=== PATIENT | female | born 1960 | race African-American/Black ===

== ENCOUNTER 2016-12-06 02:00 | Inpatient (IN) ==
[2016-12-06 04:06] LABS: PT Patient Result 10.4 SECS; Partial Thromboplastin Time 23.1 SECS (0-40)
[2016-12-06 04:14] LABS: Barbiturates Screen,Urine Negative (Negative); Benzodiazepines Screen,Urine Negative (Negative); Cannabinoid Screen,Urine Negative (Negative); Opiate Screen,Urine Negative (Negative); Phencyclidine Screen,Urine Negative (Negative)
--- NOTE | 2016-12-06 04:20 | Emergency Department Note ---
Basilio Christy Mantricia, am scribing for, and in the presence of, Rl Schilling MD 03:58. Shakir Christy Charles R, MD, personally performed the services described in this documentation, ascribed by Edison Richmond in my presence, and it is both accurate and complete 420 . Arrival - Arrival Chief Complaint: Neuro Stated Complaint: poss. stroke ED Nursing Triage Note: C/O Pt reports that she woke up and was dizzy, but then symptoms started getting worse. Pt states that she has been stumbling and unable to use her left arm appropriately since 1330 yesterday afternoon. Pt denies seeking medical attention until now. Pt is having some trouble thinking and answering questions at time of triage. Pt reports that she has been off of her blood pressure medications "for some years" Mode of Arrival: Ambulatory Limitations: No Limitations Source: Patient Time Seen by Provider: 12/06/16 02:41 - History of Present Illness HPI Narrative: Pt is a 56 y/o black female arriving to ED for evaluation of possible CVA that happened yesterday. She reports that she woke up yesterday dizzy but she just waved the symptoms away until today when things worsened. She states that she has been stumbling and unable to use her left arm and noticed weakness in her left leg. Pt has a PMHx of HTN; however, she has been off her medications for a while. Pt answers questions slowly at time of exam. No other complaints were reported to ED. Onset (ago): day(s) Date of Last Menstrual Period: PM Allergies/Adverse Reactions: Allergies Allergy/AdvReac Type Severity Reaction Status Date / Time No Known Allergies Allergy Verified 12/06/16 02:07 Home Medications: Home Medications Medication Instructions Recorded Confirmed Type No Known Home Medications [No 12/06/16 12/06/16 History Known Home Medications] Review of System - Review of System 12 point system: reviewed and no additional remarkable complaints except as stated - Review of System Constitutional: Absent: chills, diaphoresis, fever Eyes: Absent: discharge, pain Respiratory: Absent: cough Skin: Absent: rash, lesions Neurological: Present: weakness (left sided), abnormal gait Medical,Surgical,& Family Hx - Medical History Cardio: History of: Hypertension (No taking meds) - Social History Smoking Status: Current some day smoker Frequency of Alcohol Use: None Type of Drug Use: None Exam Vital Signs: Vital Signs Temperature 98.5 F 12/06/16 02:07 Pulse Rate 91 H 12/06/16 02:40 Respiratory Rate 16 12/06/16 02:40 Blood Pressure 224/136 12/06/16 02:40 O2 Sat by Pulse Oximetry 99 12/06/16 02:07 - General General appearance: alert, in no apparent distress, other (slurred speech) - Head Head exam: Present: atraumatic, normocephalic, other (left facial droop) - Eye Eye exam: Present: normal appearance, PERRL, EOMI - ENT ENT exam: Present: normal exam, normal oropharynx, mucous membranes moist, TM's normal bilaterally, normal external ear exam - Neck Neck exam: Present: normal inspection, full ROM, trachea midline. Absent: tenderness - Chest Chest inspection: Present: normal inspection, symmetric chest wall rise. Absent : tenderness - Respiratory Respiratory exam: Present: normal lung sounds bilaterally - Cardiovascular Cardiovascular exam: Present: regular rate, normal rhythm, normal heart sounds - Extremities Exam Extremities exam: Present: normal inspection, full ROM. Absent: tenderness - Back Exam Back exam: Present: normal inspection, full ROM. Absent: tenderness - Neurological Exam Neurological exam: Present: oriented X3, CN II-XII intact. Absent: normal gait - Expanded Neurological Exam Motor strength - LUE: 3/5 Motor strength - LLE: 3/5 - Psychiatric Psychiatric exam: Present: normal affect, normal mood - Skin Skin exam: Present: warm, dry, intact, normal color Course Course Narrative: Reason for not using TPA is is greater than 8 hours since onset of symptoms approximately greater than 24 hours at this time. Patient is also has a blood pressure is too high to give TPA as well. - Consultations Consultation #1: Hospitalist will admit patient Time: 05:04 Results - Labs CBC & BMP: 12/06/16 02:58 Lab Results: I have reviewed the patients labs - Diagnostic Findings Procedure: CT: image reviewed by me, report reviewed by me (CT head negative) Critical Care Time Critical Care Time: Yes Total Critical Care Time: 60 Disposition Clinical Impression: Cerebrovascular accident, Malignant hypertension, Left-sided weakness, Medical non-compliance, UTI (urinary tract infection) Case discussed with: patient Disposition: Still a Patient Condition: Critical Time of Disposition: 05:17 NIH Stroke Score - Stroke Score Initial Assessment Level of Consciousness: Alert Level of Consciousness Questions: Answers Both Correctly Level of Consciousness Commands: Obeys Both Correctly Best Gaze: Normal Visual Smith: No Visual Loss Facial Palsy: Partial Motor - Right Arm: No Drift Motor - Left Arm: Drift Motor - Right Leg: No Drift Motor - Left Leg: Drift Limb Ataxia: Absent Sensory ([place]): Partial Loss Best Language: Mild to Moderate Aphasia Dysarthria: Mild to Moderate Extinction / Inattention (Neglect): No Neglect NIH Stroke Score: 7
[2016-12-06] MEDS ORDERED: niCARdipine 25 MG/10 ML VIAL IV ONE (04:29)
[2016-12-06 04:31] LABS: Alanine Aminotransferase 33 U/L (13-56); Albumin 4.1 G/DL (3.4-5.0); Alkaline Phosphatase 118 U/L (45-117); Aspartate Amino Transferase 20 U/L (0-37); Blood Urea Nitrogen 9 MG/DL (7-18); Calcium 9.9 MG/DL (8.5-10.1); Glucose 123 MG/DL (74-106); Osmolality,Calculated 282.1 MOS/KG (273-304); Potassium 3.5 MMOL/L (3.5-5.1); Sodium 142 MMOL/L (136-145); Total Protein 8.6 G/DL (6.4-8.3)
[2016-12-06] MEDS ORDERED: ASPIRIN EC 325 MG TABLET PO STA (04:31)
[2016-12-06 04:35] LABS: Troponin I Only 0.481 NG/ML (0.00-0.045)
[2016-12-06] MEDS: niCARdipine INJ 25 MG in SODIUM CHLORIDE 0.9% 240 ML IV SCH ×2 (04:35→09:40)
[2016-12-06 04:59] LABS: Amorphous Crystals,Urine Occasional /HPF (Few); Bacteria,Urine Occasional /HPF (Few); Hyaline Casts,Urine 2 /LPF (0-3); Mucus,Urine Occasional /LPF (Occasional); RBC,Urine 9 /HPF (0-4); Squamous Epithelial Cell,Urine Occasional /HPF (0-10); WBC,Urine 50 /HPF (0-6)
[2016-12-06 05:01] LABS: Bilirubin,Urine Negative (Negative); Glucose,Urine (UA) Negative (Negative); Ketones,Urine Negative (Negative); Nitrite,Urine Negative (Negative); Protein,Urine 100 MG/DL; Urine Color Yellow (Yellow); Urine Specific Gravity 1.005 (1.001-1.035)
[2016-12-06 05:02] LABS: Apearance,Urine Slightly Hazy (Clear); Blood, Urine Trace mg/dL (Negative); Urine Urobilinogen 0.2 EU/DL (0.2-1.0)
[2016-12-06] MEDS ORDERED: cefTRIAXone 1,000 MG in SODIUM CHLORIDE 0.9% 100 ML IV STA (05:03)
[2016-12-06 05:25] LABS: Basophils % 0.5 % (0.0-0.8); Eosinophils # 0.2 10*3/uL (0.0-0.87); Hematocrit 40.8 VOL% (35.7-47.0); Immature Granulocytes % 0.3 %; Immature Granulocytes Absolute 0.02 #; Lymphocytes # 1.1 10*3/uL (1.4-4.0); Mean Corpuscular HGB Conc 31.9 GM/DL (32-36); Mean Corpuscular Hemoglobin 26 PG (27-34); Mean Corpuscular Volume 81.4 FL (87-102); Mean Platelet Volume 11.7 FL (9.6-12.0); Monocytes # 0.2 10*3/uL (0.11-0.8); NRBC # 0.02 10*3/uL; Neutrophils # 4.2 10*3/uL (1.4-7.4); Neutrophils % 73.2 % (38.7-73.9); Platelet Count 115 T/CUMM (130-400); Red Blood Count 5.01 MC/CUMM (3.8-5.5); Red Cell Distribution Width 13.9 % (9.3-17.3); White Blood Count 5.8 T/CUMM (4-12)
[2016-12-06] MEDS ORDERED: ASPIRIN EC 325 MG TABLET PO ONE (05:28)
[2016-12-06] MEDS ORDERED: cefTRIAXone 1,000 MG VIAL ONE (05:28)
--- NOTE | 2016-12-06 05:41 | Hospitalist History & Physical ---
Assessment and Plan (1) Cerebrovascular accident Status: Acute Assessment and plan: This happened yesterday. This also the REM of doing TPA on her. This patient most likely has a dry stroke. Differential diagnosis includes syphilis includes vasculitis. Will therefore do RPR, ESR and JULIANE. Get neurology consultation. An MRI of the head CTA of the head and neck. Patient has been started on antiplatelets that will continue use Lovenox subcu for DVT prophylaxis Current Visit: Yes (2) UTI (urinary tract infection) Status: Acute Assessment and plan: Continue ceftriaxone 1 g every 24 hours. Follow cultures of the urine. Current Visit: Yes (3) Malignant hypertension Status: Acute Assessment and plan: Patient is on Cardene drip patient will be titrated up. Intention is to allow permissive hypertension to systolic blood pressure below 160 and 180 for the next 48 hours. Patient is being admitted to the intensive care unit. Current Visit: Yes History of Present Illness Chief complaint: Left-sided weakness/malignant hypertension History of present illness: Ms. Sprague is a 56 year old female presented to ED for evaluation of possible CVA that happened yesterday. She reports that she woke up yesterday dizzy but she just waved the symptoms away until today when things worsened. She states that she has been stumbling and unable to use her left arm and noticed weakness in her left leg. Pt has a PMHx of HTN; however, she has been off her medications for a while. Pt answers questions slowly but appears anxious. No prior history of hypothyroidism. Tox screen is negative for an excitatory medication Home Medications Medication Instructions Recorded Confirmed Type No Known Home Medications [No 12/06/16 12/06/16 History Known Home Medications] Allergies Allergy/AdvReac Type Severity Reaction Status Date / Time No Known Allergies Allergy Verified 12/06/16 02:07 Medical,Surgical,& Family Hx - Medical History Cardio: History of: Hypertension (No taking meds) - Social History Smoking Status: Current some day smoker Frequency of Alcohol Use: None Type of Drug Use: None Review of systems: 12 point system assessment was done. Significant for chief complaint history of presenting illness and his past medical history. Patient does have weakness on the left side of her body including both the left arm on the left leg. She has been dragging her leg since yesterday. Exam - Constitutional Vitals: Period Temp Pulse Resp BP Sys/Garza Pulse Ox Last 24 Hr 98.5 F 91-118 16-20 224-242/118-136 99 General appearance: over weight - Head Head exam: Present: normocephalic, atraumatic - Eye Eye exam: Present: EOMI Pupils: Present: CARMELITA - ENT ENT exam: Present: normal oropharynx, other (No dysarthria but slow in response) - Neck Neck exam: Present: other (Neck is supple no JVD midline trachea no adenopathy) - Respiratory Respiratory exam: Present: clear to auscultation bilaterally - Cardiovascular Cardiovascular exam: Present: tachycardia - GI/Abdominal GI/Abdominal exam: Present: normal bowel sounds, soft - Extremities Exam Extremities exam: Present: other (Poor cardiovascular physician assistant on the left side and incoordination of the left lower extremity no loss of muscle bulk no joint swelling) - Neurological Exam Neurological exam: Present: alert, oriented X3, CN II-XII intact, other (Left- sided weakness including both and the leg with incoordination of the leg) - Psychiatric Psychiatric exam: Present: anxious - Skin Skin exam: Present: normal color, warm, dry Results - Labs CBC & BMP: 12/06/16 02:58 Lab Results: I have reviewed the past 24 hour labs Quality Measures - Stroke Onset of Symptoms Date: 12/05/16 Onset of Symptoms Time: 13:00
--- NOTE | 2016-12-06 06:03 | EKG Report ---
Stationary ECG Study [facility] ER Test Date: 12/06/2016 4:27:44 AM Pat Name: UMA AYERS Department: Room: Gender: F Survey Manager: : 1960 Requested by: Rl Solitario Order Number: [id number] Reading MD: BERTHA PLUMMER Intervals [place] Rate: 95 P: 50 KS: 185 QRS: 0 QRSD: 86 T: 170 QT: 337 QTc: 390 Interpretive Statements SINUS RHYTHM LEFT VENTRICULAR HYPERTROPHY AND ST-T CHANGE Electronically Signed On 12-06-16 10:47:23 CDT by BERTHA PLUMMER [email or web address]
[2016-12-06 06:11] LABS: Hypochromasia 1+; Lymphocytes 18 % (20-55); Segmented Neutrophils 79 % (50-85); Total Cells Counted 100
[2016-12-06 06:17] LABS: Risk Ratio 3.64
[2016-12-06 06:26] LABS: Free T4 (Free Thyroxine) 1.14 NG/DL (0.76-1.46); Thyroid Stimulating Hormone 2.96 uIU/ml (0.358-3.74)
--- NOTE | 2016-12-06 06:51 | CT Report ---
Referring physician: Rl Schilling Exam: CT brain without contrast Date: December 06, 2016 Comparison: None Reason: Hemiparesis, dizziness The patient was an Emergency Department patient on December 06, 2016. Preliminary report was provided by [facility]. Technique: Axial images of the head were obtained without the use of contrast. Total DLP was 997.9 mGy*cm. Findings: There are areas of low-attenuation within the cerebral white matter bilaterally. This is nonspecific but likely represents chronic microvascular ischemic change. A 1 cm area of low attenuation is also seen within the anterior aspect of the right basal ganglia on image 11. This could represent an indeterminate age lacunar infarction. No hydrocephalus or midline shift is present. There is no evidence of recent intracranial hemorrhage or abnormal mass effect. There may be a punctate calcification within the left lateral ventricle near the foramen of Hernandez. No acute osseous process is seen. There is a small hypodensity within the calvarium on the right near the vertex on image 26. This is favored to represent a benign process such as a venous perkins. Follow-up could be performed for a high-risk patient. There is mild mucosal thickening within the ethmoid air cells. The mastoid air cells appear clear. Impression: 1. There is a 1.0 cm area of low attenuation within the anterior right basal ganglia. This could represent an indeterminate age lacunar infarction. Further evaluation could be performed with MRI. 2. Probable chronic microvascular ischemic change. Findings were discussed with Dr. Lovelace on December 06, 2016 at 6:[address] exam was performed using one or more of the following dose reduction techniques: Automated exposure control and adjustment of the mA and/or kV according to patient size. PROCEDURE INTERPRETED AT [facility] DEPARTMENT OF RADIOLOGY Final Report Signed by: Dr. Walter Sparks
[2016-12-06] MEDS ORDERED: METOPROLOL TARTRATE 5 MG/5 ML VIAL IV ONE (06:54)
[2016-12-06] MEDS: ENOXAPARIN 40 MG/0.4 ML SYRINGE SUBCUT SCH (07:56)
--- NOTE | 2016-12-06 08:23 | XRay Report ---
Portable chest Date: 12/06/2016 Clinical history: Cardiomegaly Comparison: None Technique: Portable AP sitting chest Findings: The heart is borderline in size with uncoiling of the aorta. Calcified granulomata/nodes with minimal atelectasis at the lung bases. Unremarkable mediastinum with degenerative changes. Impression: Evidence of old healed granulomatous disease with minimal atelectasis at the lung bases. PROCEDURE INTERPRETED AT [facility] DEPARTMENT OF RADIOLOGY Final Report Signed by: Dr. Lalita Gonsalez
[2016-12-06] MEDS ORDERED: LORazepam 1 MG TABLET PO ONE (09:00)
[2016-12-06] MEDS ORDERED: niCARdipine INJ 50 MG in SODIUM CHLORIDE 0.9% 230 ML IV SCH (10:30)
--- NOTE | 2016-12-06 12:20 | Magnetic Resonance Report ---
Exam: MR head/brain w and wo con Date: 12/06/2016 8:11 AM Comparison: CT brain 12/06/2016 Indication: Left side weakness with possible CVA Technique:[Multiple acquisitions were obtained including sagittal T1, coronal T1 scans on injection of 20 cc of Dotarem, and axial ADC, diffusion, FLAIR, T2, GRE, and T1 scans before and after injection of contrast. Scans were obtained on 1.5 Annette magnet.] Findings: The right frontal horn is minimally larger in size than the left with no midline displacement. Empty sella with the cerebellar tonsils normal in their location. Restricted diffusion in the right basal ganglia location which measures 14 mm in AP diameter inferiorly and 15 mm more superiorly adjacent to the right lateral ventricle. Additional chronic right basal ganglia infarct. No evidence of hemorrhage, mass, extracerebral collection, or abnormal enhancement. Diffuse atrophy and multiple flair/T2 hyperintensities. Minimal mucosal thickening/fluid in the paranasal sinuses. No acute findings in the orbits, temporal bones, [place], or venous sinuses. Impression: Acute right basal ganglia infarction with additional more chronic right basal ganglia infarction. Diffuse cerebral atrophy and moderately severe microvascular disease. T2 hyperintensities can also be associated with demyelinating disease, vasculitis, viral illness, etc. Empty sella. Minimal sinusitis. PROCEDURE INTERPRETED AT [facility] DEPARTMENT OF RADIOLOGY Final Report Signed by: Dr. Lalita Gonsalez
--- NOTE | 2016-12-06 12:25 | Magnetic Resonance Report ---
Exam: MR angio neck wo/w con Date: 12/06/2016 10:03 AM Comparison: None Indication: Left side weakness, hypertension, CVA Technique:[Utilizing 2-D [id number]-lagcuo imaging MRA neck obtained. Scans were obtained before and after the injection of 20 cc of Dotarem. Degree of stenosis based on NASCET criteria. Scans were obtained on a 1.5 Annette magnet.] Findings: Tortuosity of the arteries. In the upper carotid bulb location the right ICA measures 5.1 mm in diameter. The left ICA measures 4.9 mm in diameter. The right vertebral artery is smaller in size than the left with Limited evaluation of the distal vertebral and basilar arteries. The basilar artery is small in size with possible stenoses. Impression: Tortuosity of the arteries. No hemodynamically significant carotid stenosis. The right vertebral artery is smaller in size than the left. Limited evaluation of the distal vertebral and basilar arteries. The basilar artery is noted to be somewhat small in size with possible stenoses. PROCEDURE INTERPRETED AT [facility] DEPARTMENT OF RADIOLOGY Final Report Signed by: Dr. Lalita Gonsalez
[2016-12-06] MEDS: METOPROLOL TARTRATE 25 MG TABLET PO SCH ×2 (14:00→20:40)
[2016-12-06] MEDS: LISINOPRIL 20 MG TABLET PO SCH (14:00)
[2016-12-06] MEDS: amLODIPine 10 MG TABLET PO SCH (14:00)
[2016-12-06] MEDS ORDERED: ZALEPLON 5 MG CAPSULE PO PRN (15:27)
--- NOTE | 2016-12-06 17:52 | ECHO Report ---
Erika Sprague Exam Date: 12/06/2016 12:50 Referring Physician: Technologist: noe Sparks ARDMS, RVT Age: 56 Ht (in): 63 Wt (lb): 168 Gender: F Exam Location: [facility] Echo Indications: Essential (primary) hypertension, Weakness, CVA, UTI BP: 213 / 98 HR: 131 Rhythm: Sinus tachycardia Technical Quality: Fair IMPRESSIONS 1. Left ventricle is normal size and systolic function with an ejection fraction 60%. There is mild concentric left ventricular hypertrophy. 2. Other cardiac chambers are normal size. 3. Valvular structures are grossly normal. 4. There is no gross evidence of intracardiac mass or thrombus as a source for emboli. MEASUREMENTS (Male / Female) Normal Values 2D ECHO LV Diastolic Diameter PLAX 3.8 cm 4.2 - 5.9 / 3.9 - 5.3 cm LV Systolic Diameter PLAX 2.1 cm LV Fractional Shortening PLAX 46.4 % IVS Diastolic Thickness 1.3 cm 0.6 - 1.0 / 0.6 - 0.9 cm LVPW Diastolic Thickness 1.0 cm 0.6 - 1.0 / 0.6 - 0.9 cm RV Internal Dim ED PLAX 2.4 cm Aortic Root Diameter 2.5 cm LA Systolic Diameter LX 3.1 cm 3.0 - 4.0 / 2.7 - 3.8 cm FINDINGS Left Ventricle Normal left ventricular cavity size. Mild left ventricular hypertrophy. Left ventricular ejection fraction is estimated at 60 %. Right Ventricle The right ventricle is normal in size and function. Right Atrium The right atrium is normal in size. Left Atrium The left atrium is normal in size. Mitral Valve Morphologically normal mitral valve without significant stenosis or prolapse. There is no mitral regurgitation. Aortic Valve Morphologically normal aortic valve without significant sclerosis or stenosis. There is no aortic regurgitation. Tricuspid Valve Morphologically normal tricuspid valve without significant stenosis or regurgitation. Pulmonary artery systolic pressure is normal. Pulmonic Valve Morphologically normal pulmonic valve. Trace pulmonary valve regurgitation. Pericardium Normal pericardium without effusion. Aorta Normal ascending aorta dimension. Castro Aguilar MD (Electronically Signed) Final Date: 06 December 2016 17:51
--- NOTE | 2016-12-06 19:51 | EKG Report ---
Stationary ECG Study [facility] ER Test Date: 12/06/2016 6:40:10 AM Pat Name: UMA AYERS Department: Room: 120 Gender: F Wind Up Worker: : 1960 Requested by: Rl Solitario Order Number: [id number] Reading MD: CAREN TAY Intervals [place] Rate: 127 P: 70 AR: 161 QRS: 4 QRSD: 83 T: 159 QT: 291 QTc: 366 Interpretive Statements SINUS TACHYCARDIA LEFT VENTRICULAR HYPERTROPHY AND ST-T CHANGE Electronically Signed On 12-08-16 06:59:36 CDT by CAREN TAY [email or web address]
[2016-12-06] MEDS: ATORVASTATIN 40 MG TABLET PO SCH (20:40)
[2016-12-07] MEDS: cefTRIAXone 1,000 MG in SODIUM CHLORIDE 0.9% 100 ML IV SCH (06:15)
[2016-12-07] MEDS: ENOXAPARIN 40 MG/0.4 ML SYRINGE SUBCUT SCH (08:07)
[2016-12-07] MEDS: LISINOPRIL 20 MG TABLET PO SCH (08:07)
[2016-12-07] MEDS: ASPIRIN EC 81 MG TABLET PO SCH (08:07)
[2016-12-07] MEDS: METOPROLOL TARTRATE 25 MG TABLET PO SCH ×2 (08:07→20:52)
[2016-12-07] MEDS: amLODIPine 10 MG TABLET PO SCH (08:07)
--- NOTE | 2016-12-07 12:04 | Hospitalist Progress Note ---
Assessment and Plan (1) Cerebrovascular accident Status: Acute Assessment and plan: 1)right basal ganglion stroke- seen on MRI. MRA of carotids without sig stenosis. echo with normal EF and mild concentric LVH, no source of emboli. tele with NSR since admit. PT/OT/ST. Neuro to see. On aspirin, statin. LDL 148. BP under much better control with orals, and she has been off cardene for over 2 hours. Permissive HTN for now. Transfer to floor. 2)UTI- culture pending. On ceftriaxone. Current Visit: Yes (2) Malignant hypertension Status: Acute Current Visit: Yes (3) Left-sided weakness Status: Acute Current Visit: Yes (4) Medical non-compliance Status: Acute Current Visit: Yes (5) UTI (urinary tract infection) Status: Acute Current Visit: Yes Hospitalist: Subjective Interval history: Ms Ritchie is doing well today. She denies pain or shortness of breath. She is eating without trouble swallowing. Her speech is clear and she perceives that her strength is normal, but she has not been out o fbed and she is favoring her right hand. Exam - Constitutional Vitals: Period Temp Pulse Resp BP Sys/Garza Pulse Ox Last 24 Hr 97.2 F-98.4 F 59-123 12-26 110-188/63-129 93-100 General appearance: no acute distress, over weight - Head Head exam: Present: normocephalic, atraumatic - Eye Eye exam: Present: EOMI. Absent: scleral icterus - Respiratory Respiratory exam: Present: clear to auscultation bilaterally - Cardiovascular Cardiovascular exam: Present: regular rate and rhythm - GI/Abdominal GI/Abdominal exam: Present: normal bowel sounds, soft. Absent: tenderness - Extremities Exam Extremities exam: Absent: edema - Neurological Exam Neurological exam: Present: alert, oriented X3, CN II-XII intact, motor sensory deficit (left arm drift, decreased purchasing expeditor strenght on left) - Psychiatric Psychiatric exam: Present: normal affect, normal mood - Skin Skin exam: Present: warm, dry Results - Labs CBC & BMP: 12/06/16 05:00 12/06/16 02:58 Lab Results: I have reviewed the past 24 hour labs Quality Measures - Stroke Onset of Symptoms Date: 12/05/16 Onset of Symptoms Time: 13:00 Presenting Symptoms: Left hemiparesis
--- NOTE | 2016-12-07 15:37 | Physician Query Form ---
CLICK EDIT DOCUMENT TO SELECT QUERY ANSWER --> OK --> SIGN Agustina Alberto RN Clinical Crude Oil Driver W) [phone] (f) [phone] [email or web address] PROVIDERS: Make your selection(s) from the choices in EACH section by typing an "x" and enter comments in the comment section. Please use your independent medical judgment in providing your response. This request does not imply that any particular answer is desired or expected. CLINCAL INDICATORS: (Providers should not edit this section) Based on documentation of "malignant hypertension". Blood pressure of 224/136 Pt. treated with IV Cardene. Note: Hypertensive crises can present as hypertensive urgency or hypertensive emergency. Clarify which, if any of the following, is a more accurate diagnosis reflecting the type and acuity of the documented hypertension: TYPE: ( ) Hypertensive Urgency ( x) Hypertensive Emergency ( ) Uncontrolled chronic hypertension at baseline ( ) Other, please specify: ( ) Clinically unable to determine COMMENTS: Criteria Source - Up to Date (This topic last updated: Aug 27, 2015) HYPERTENSIVE URGENCY: Severe hypertension (usually a diastolic blood pressure above 120 mmHg) in asymptomatic patients is referred to as hypertensive urgency. There is no proven benefit from rapid reduction in blood pressure in asymptomatic patients who have no evidence of acute end-organ damage and are at little short-term risk. HYPERTENSIVE EMERGENCY: Severe hypertension (usually a diastolic blood pressure above 120 mmHg) with evidence of acute end-organ damage is defined as a hypertensive emergency. A hypertensive emergency can be life threatening and requires immediate treatment, usually with parenteral medications in a monitored setting. PLEASE ALSO DOCUMENT RESPONSE IN PROGRESS NOTES AND/OR DISCHARGE SUMMARY Use of terms such as suspected, likely, or probable (associated with a specific diagnosis that is being evaluated, monitored, or treated as if it exists) are acceptable and can be restated in the discharge summary if not ruled out. MTDD
--- NOTE | 2016-12-07 17:50 | Neurology Consult Note ---
History of Present Illness History of present illness: Ms. Sprague is a 56 year old female presented to ED for evaluation of possible strokelike symptoms that happened yesterday. She reports that she woke up yesterday dizzy, speech difficulties and left-sided weakness. She states that she has been stumbling and unable to use her left arm and noticed weakness in her left leg. Pt has a PMHx of HTN; however, she has been off her medications for a while. Pt answers questions slowly but appears anxious. No prior history of hypothyroidism. Tox screen is negative for an excitatory medication. MRI of the brain revealed acute right basal ganglia infarction with additional more chronic right basal ganglia infarction. Echo showed ejection fraction of 60%. Carotid Dopplers has not been done yet. Cholesterol is 233. Home Medications Medication Instructions Recorded Confirmed Type No Known Home Medications [No 12/06/16 12/06/16 History Known Home Medications] Allergies Allergy/AdvReac Type Severity Reaction Status Date / Time No Known Allergies Allergy Verified 12/06/16 02:07 12 point system: reviewed and no additional remarkable complaints except as stated Medical,Surgical,& Family Hx - Medical History Cardio: History of: Hypertension (No taking meds) Musculoskeletal: No history of: Amputation - Surgical History Reproductive Surgeries: Patient denies;: Hysterectomy - Family History Family History: Reports;: Family Cancer, Family Heart Disease (father ([place])), Family Hypertension - Social History Smoking Status: Current every day smoker Frequency of Alcohol Use: None Type of Drug Use: None Exam - Constitutional Vitals: Period Temp Pulse Resp BP Sys/Garza Pulse Ox Last 24 Hr 97.2 F-98.7 F 59-101 12-24 110-180/63-118 93-100 Exam: GENERAL: Patient is in no acute distress. NECK: Neck is supple. There is no JVD. No carotid bruits present. No thyroid masses. CVS: First and second heart sounds are normal. There is no S3 present. Regular rate and rhythm. RESPIRATORY: Lungs are clear to auscultation without any rales or rhonchi. ABDOMEN: Soft and non-tender. Bowel sounds are present. There is no hepatosplenomegaly. EXT: There is no palpable edema. Peripheral pulses are present. Skin: No rashes Central Nervous system: General: Alert, awake and Oriented x 3 Speech: Fluent Comprehension: Intact and normal Facial expressions: Normal Cranial Nerves: CN1/Olfactory: Normal CN II/ Optic: Normal, Visual Smith unreliable CN III, and : CARMELITA & EOMI CN V: Normal & intact CN VII: face is symmetric CNVIII: Normal CN XI/X/XI/XII: Intact and Normal Motor: Bulk and Tone is normal. Strength in the right 5/5 Strength in the left 3-4/5 Sensory: Grossly intact for all the modalities of PP, LT and temp sense Reflexes: 1+ and symmetrical Cerebellar function: Normal finger to nose and heel to fontaine testing. Toes: Equivocal Gait: Able to get up and walk. Slightly broad-based gait. Results - Labs CBC & BMP: 12/06/16 05:00 12/06/16 02:58 Assessment and Plan (1) Acute CVA (cerebrovascular accident) Status: Acute Assessment and plan: Continue aspirin a day. Carotid Doppler Outpatient PT and OT Home when okay with PCP Thank you for the consult Current Visit: Yes Specialty Discharge - Follow Up or Referrals
[2016-12-07] MEDS: ATORVASTATIN 40 MG TABLET PO SCH (20:52)
[2016-12-08] MEDS: cefTRIAXone 1,000 MG in SODIUM CHLORIDE 0.9% 100 ML IV SCH (05:21)
[2016-12-08] MEDS: METOPROLOL TARTRATE 25 MG TABLET PO SCH (08:29)
[2016-12-08] MEDS: ASPIRIN EC 81 MG TABLET PO SCH (08:30)
[2016-12-08] MEDS: LISINOPRIL 20 MG TABLET PO SCH (08:30)
[2016-12-08] MEDS: amLODIPine 10 MG TABLET PO SCH (08:30)
[2016-12-08] MEDS: ENOXAPARIN 40 MG/0.4 ML SYRINGE SUBCUT SCH (08:31)
[2016-12-08] MEDS ORDERED: hydrALAZINE 25 MG TABLET PO PRN (10:35)
--- NOTE | 2016-12-08 10:39 | Hospitalist Progress Note ---
Assessment and Plan (1) Cerebrovascular accident Status: Acute Assessment and plan: Neurology assisting Echo and carotid dopplers ok On asa and statin Current Visit: Yes (2) Malignant hypertension Status: Acute Assessment and plan: Started on lisinopril, amlodipine and metoprolol hydralazine prn for now Current Visit: Yes (3) Left-sided weakness Status: Acute Assessment and plan: Secondary to CVA PT/OT Current Visit: Yes (4) Medical non-compliance Status: Acute Current Visit: Yes (5) UTI (urinary tract infection) Status: Acute Assessment and plan: Continue rocephin Current Visit: Yes Hospitalist: Subjective Interval history: No acute events overnight. This morning blood pressure elevated systolic 200s. Exam - Constitutional Vitals: Period Temp Pulse Resp BP Sys/Garza Pulse Ox Last 24 Hr 96.6 F-98.8 F 68-122 16-20 132-211/66-149 94-100 General appearance: over weight - Head Head exam: Present: normocephalic, atraumatic - Eye Eye exam: Present: EOMI Pupils: Present: CARMELITA - ENT ENT exam: Present: normal exam - Neck Neck exam: Present: normal inspection - Respiratory Respiratory exam: Present: clear to auscultation bilaterally. Absent: rhonchi, wheezes - Cardiovascular Cardiovascular exam: Present: regular rate and rhythm - GI/Abdominal GI/Abdominal exam: Present: normal bowel sounds, soft. Absent: tenderness, rebound - Extremities Exam Extremities exam: Present: normal inspection - Back Exam Back exam: Present: normal inspection - Neurological Exam Neurological exam: Present: alert, oriented X3 - Psychiatric Psychiatric exam: Present: normal affect, normal mood - Skin Skin exam: Present: warm, intact Results - Labs CBC & BMP: 12/06/16 05:00 12/06/16 02:58 Quality Measures - Stroke Onset of Symptoms Date: 12/05/16 Onset of Symptoms Time: 13:00 Presenting Symptoms: Left hemiparesis Specialty Discharge - Follow Up or Referrals
[2016-12-08] MEDS ORDERED: METOPROLOL TARTRATE 25 MG TABLET PO ONE (12:41)
[2016-12-08] MEDS ORDERED: clonazePAM 0.5 MG TABLET PO PRN (12:50)
[2016-12-08] MEDS: hydrALAZINE 25 MG TABLET PO SCH ×2 (14:54→20:39)
--- NOTE | 2016-12-08 15:16 | CT Report ---
CT head/brain wo con Indication: New onset lower extremity weakness. CT BRAIN WITHOUT CONTRAST DLP: 1073 mGy*cm. One or more of the following dose reduction techniques was used: Automated exposure control, adjustment of the mA and/or kV according the patient size, or use of iterative reconstruction techniques. Comparison: 12/06/2016. Date of admission: 12/06/2016. Technique: Axial noncontrast CT images of the brain were obtained. Findings: Multiple right basal ganglia infarcts are again shown from the prior exam and appear relatively stable. By CT, no new loss of baugh-white junction is identified. No hemorrhage, mass or mass effect. Mild prominence of the right anterior horn of lateral ventricles is stable. No bone lesions. Visualized sinuses remain clear. Impression: No significant change since 12/06/2016. Multiple right basal ganglia infarcts of variable ages again demonstrated. PROCEDURE INTERPRETED AT [facility] DEPARTMENT OF RADIOLOGY Final Report Signed by: Castro Oglesby M.D.
[2016-12-08] MEDS ORDERED: LORazepam 2 MG/1 ML VIAL IV ONE (15:45)
[2016-12-08] MEDS: ATORVASTATIN 40 MG TABLET PO SCH (20:38)
[2016-12-08] MEDS: METOPROLOL TARTRATE 50 MG TABLET PO SCH (20:39)
[2016-12-09] MEDS: cefTRIAXone 1,000 MG in SODIUM CHLORIDE 0.9% 100 ML IV SCH (06:01)
[2016-12-09] MEDS: hydrALAZINE 25 MG TABLET PO SCH ×3 (08:39→20:53)
[2016-12-09] MEDS: LISINOPRIL 20 MG TABLET PO SCH (08:39)
[2016-12-09] MEDS: METOPROLOL TARTRATE 50 MG TABLET PO SCH ×2 (08:40→20:53)
[2016-12-09] MEDS: ASPIRIN EC 81 MG TABLET PO SCH (08:40)
[2016-12-09] MEDS: amLODIPine 10 MG TABLET PO SCH (08:40)
[2016-12-09] MEDS: ENOXAPARIN 40 MG/0.4 ML SYRINGE SUBCUT SCH (08:41)
--- NOTE | 2016-12-09 09:04 | Hospitalist Progress Note ---
Assessment and Plan (1) Cerebrovascular accident Status: Acute Assessment and plan: Neurology assisting Echo and carotid dopplers ok On asa and statin Current Visit: Yes (2) Malignant hypertension Status: Acute Assessment and plan: Started on lisinopril, amlodipine and metoprolol Started hydralazine yesterday Metoprolol increased yesterday Much better today, will monitor, possible discharge tomorrow Current Visit: Yes (3) Left-sided weakness Status: Acute Assessment and plan: Secondary to CVA PT/OT Current Visit: Yes (4) Medical non-compliance Status: Acute Current Visit: Yes (5) UTI (urinary tract infection) Status: Acute Assessment and plan: Continue rocephin Today will complete a three day course Current Visit: Yes Hospitalist: Subjective Interval history: No acute events overnight. Yesterday with increase in blood pressure back up to systolic 190s-200s. Patient also felt that her LE weakness was worse, CT repeated, no acute changes. Today reports that she feels better. Social work assisting with outpatient physical therapy. Exam - Constitutional Vitals: Period Temp Pulse Resp BP Sys/Garza Pulse Ox Last 24 Hr 97.2 F-98.5 F 68-118 18-20 116-207/64-113 98-99 General appearance: over weight - Head Head exam: Present: normocephalic, atraumatic - Eye Eye exam: Present: EOMI Pupils: Present: CARMELITA - ENT ENT exam: Present: normal exam - Neck Neck exam: Present: normal inspection - Respiratory Respiratory exam: Present: clear to auscultation bilaterally. Absent: rhonchi, wheezes - Cardiovascular Cardiovascular exam: Present: regular rate and rhythm - GI/Abdominal GI/Abdominal exam: Present: normal bowel sounds, soft. Absent: tenderness - Extremities Exam Extremities exam: Present: normal inspection - Back Exam Back exam: Present: normal inspection - Neurological Exam Neurological exam: Present: alert, oriented X3 - Psychiatric Psychiatric exam: Present: normal affect, normal mood - Skin Skin exam: Present: warm, intact Results - Labs CBC & BMP: 12/06/16 05:00 12/06/16 02:58 Quality Measures - Stroke Onset of Symptoms Date: 12/05/16 Onset of Symptoms Time: 13:00 Presenting Symptoms: Left hemiparesis Specialty Discharge - Follow Up or Referrals
[2016-12-09] MEDS: ATORVASTATIN 40 MG TABLET PO SCH (20:53)
[2016-12-10] MEDS: cefTRIAXone 1,000 MG in SODIUM CHLORIDE 0.9% 100 ML IV SCH (06:02)
--- NOTE | 2016-12-10 08:46 | Discharge Summary ---
<Eliezer Goodwin - Last Filed: 12/10/16 08:22> Hospital Course - Hospital Course Hospital Course: This is a 56-year-old female that presented to the ED at [facility] on December 06, 2016 for evaluation of possible stroke. Patient has a medical history significant for hypertension and current nicotine use. The patient reported a surgical history of hysterectomy. The patient reported the onset of symptoms on the day prior to presentation. She reports that she woke up dizzy initially however symptoms gradually worsened. The patient reported difficulty ambulating and the inability to use her left arm which originated the day prior to presentation. The patient reports that she had been previously diagnosed with hypertension, however she had not been taking her medications for a while. The patient was assessed. She was noted to have a left-sided facial droop, slurred speech, and her left upper extremity was flaccid. At the time of presentation the patient was noted grossly hypertensive with a blood pressure noted at 242/118. Chemistry panel was obtained which was essentially unremarkable. Chest x-ray reported evidence of an old healed granulomatous disease with minimal atelectasis at the lung bases. EKG reported sinus rhythm with left ventricular hypertrophy and ST T change. CT head reported a 1.0 cm of low at attenuation within the anterior right basal ganglia; which could represent an indeterminate age lacunar infarction, and probable chronic microvascular ischemic changes. Due to the gross elevations in the patient's blood pressure, the patient was subsequently admitted to the hospitalist services to the critical care unit for continuation of care. The patient was placed on multiple intravenous anti- hypertensive agents. A neurology consult was requested; the patient was evaluated. On the day of admission, the patient underwent MRI which revealed acute right basal ganglia infarction with the presence of additional chronic right basal ganglia infarctions. Echocardiogram was obtained which showed an ejection fraction of 60%. Neck MRA was obtained which reported to her tortuosity of the arteries, no hemodynamically significant carotid stenosis, right vertebral artery is smaller in size than the left in the basilar artery was noted to be small and somewhat size with possible stenosis. Blood cultures and urine cultures were obtained. Lipid lowering agents, antihypertensives, and platelet aggregate orders were initiated.The patient's blood pressures improved and the patient was transferred from the critical care setting to a general medical surgical floor on December 08, 2016. Blood culture report was received which was essentially benign, however urine culture reported strep agalactiae; empiric antibiotics were initiated based on the sensitivity report. The patient's condition has remained stable. The patient has experienced no significant overnight events. Today, we feel in the that she is appropriate for discharge to follow-up with her primary care physician as indicated. The patient will be discharged on Levaquin 500 mg daily for 7 days for the treatment of urinary tract infection. Spoke in great detail with the patient regarding the need to maintain both medication and medical compliance. She appears to be anxious however she reports that she will find a primary care physician and follow-up as needed. In addition, I spoke with patient on the need for smoking cessation. Patient reports that she will stop smoking however I feel that this is not the case. Specialty Discharge - Follow Up or Referrals Discharge Plan - Discharge Medications New Aspirin EC Tab 81 mg PO DAILY #30 tablet Atorvastatin [Lipitor] 40 mg PO BEDTIME #30 tablet Levofloxacin Tab [Levaquin Tab] 500 mg PO DAILY #3 tablet Lisinopril [Prinivil] 20 mg PO DAILY #30 tablet Zaleplon [Sonata] 5 mg PO BEDTIME PRN #30 capsule PRN Reason: Sleep clonazePAM TAB [KlonoPIN] 0.25 mg PO BID PRN #60 tablet PRN Reason: Anxiety hydrALAZINE TAB [Apresoline Tab] 25 mg PO TID #90 tablet Metoprolol Tartrate Tab [Lopressor Tab] 50 mg PO BID #60 tablet amLODIPine [Norvasc] 10 mg PO DAILY #30 tablet - Follow Up or Referral - Forms/Instructions Instructions: Ischemic Stroke (GEN) Exam - Constitutional Vitals: Period Temp Pulse Resp BP Sys/Garza Pulse Ox Last 24 Hr 97.2 F-98.3 F 64-84 18-22 121-173/67-97 95-99 Discharge Results Procedures and tests throughout hospitalization: Pending Orders 12/06/16 05:12 Blood Culture Stat Labs on day of discharge: Preliminary micro results at discharge 12/06/16 05:12 Blood Culture - Preliminary Blood No growth at 3 days 12/06/16 05:12 Blood Culture - Preliminary Blood No growth at 3 days DS: Provider Date of admission: 12/06/16 05:32 Primary care physician: . No PCP Attending physician on admission: González Corbett MD Consults: 12/06/16 07:53 Consult to Dietitian [CONS] Routine Reason for Dietitian: Diet Recommendations 12/06/16 08:11 Consult to Physician [CONS] Routine Comment: Left sided weakness, malignant HTN, ?New onset CVA Consulting Provider: Sal Goode Consulting Provider Notified: Yes Person Notified: behzad zarate @ clinic Date Notified: 12/06/16 Time Notified: 09:18 12/06/16 08:14 Consult to Occupational Therapy [CONS] Routine Reason for Occupational Therapy: Evaluate and Treat Consult to Physical Therapy [CONS] Routine Reason for Physical Therapy: Evaluate and Treat 12/08/16 11:50 Consult to Dietitian [CONS] Routine Reason for Dietitian: Supplements and/or Snacks Consult Comment: Patient has poor appetite 12/09/16 10:17 Consult to Case Mgmt/Social Srvs [CONS] Routine Reason for Case Mgmt/Social Srvs: Rehab Consult Comment: outpatient physical therapy 12/09/16 10:18 Consult to Outpatient Therapy [CONS] Routine Reason for Outpatient Therapy: Physical Therapy Discharging clinician: Eliezer Goodwin CNP <Fifi Hernandes - Last Filed: 12/10/16 10:21> Exam - Constitutional Exam: General appearance: NAD - Head Head exam: Present: normocephalic, atraumatic - Eye Eye exam: Present: EOMI - ENT ENT exam: Present: normal exam - Neck - Respiratory Respiratory exam: Present: clear to auscultation bilaterally. - Cardiovascular Cardiovascular exam: Present: regular rate and rhythm - GI/Abdominal GI/Abdominal exam: Present: normal bowel sounds, soft. Absent: tenderness - Extremities Exam Extremities exam: Present: normal inspection - Neurological Exam Neurological exam: Present: alert, oriented X3 - Psychiatric Psychiatric exam: Present: normal affect, normal mood - Skin Skin exam: Present: warm, intact
[2016-12-10] MEDS: ENOXAPARIN 40 MG/0.4 ML SYRINGE SUBCUT SCH (08:48)
[2016-12-10] MEDS: hydrALAZINE 25 MG TABLET PO SCH (08:49)
[2016-12-10] MEDS: ASPIRIN EC 81 MG TABLET PO SCH (08:50)
[2016-12-10] MEDS: METOPROLOL TARTRATE 50 MG TABLET PO SCH (08:50)
[2016-12-10] MEDS: amLODIPine 10 MG TABLET PO SCH (08:51)
[2016-12-10] MEDS: LISINOPRIL 20 MG TABLET PO SCH (08:51)
[2016-12-10] MEDS ORDERED: LEVOFLOXACIN 500 MG TABLET PO SCH (09:00)
[2016-12-10 11:40] VITALS: BP 151/86
== END 2016-12-10 12:59 | disposition home or self-care (01) | DRG 65 ==
LOC: N.ED 02:00 → SUATTDRO 05:32 → N.EDINP 05:32 → N.CC 06:48 → N.2E 12-07 14:43
PROVIDERS: ADMIT Internal Medicine Infectious Disease; ATTEND Internal Medicine

== ENCOUNTER 2016-12-21 17:07 | Inpatient (IN) ==
--- NOTE | 2016-12-21 17:20 | EKG Report ---
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
[2016-12-21 17:41] LABS: Basophils % 0.4 % (0.0-0.8); Eosinophils # 0.1 10*3/uL (0.0-0.87); Eosinophils % 0.9 % (0.00-10.9); Hematocrit 44.3 VOL% (35.7-47.0); Hemoglobin 14.6 GM/DL (12.0-16.0); Immature Granulocytes % 0.3 %; Immature Granulocytes Absolute 0.03 #; Lymphocytes # 3.1 10*3/uL (1.4-4.0); Lymphocytes % 30.5 % (21.3-54.2); Mean Corpuscular Hemoglobin 27 PG (27-34); Mean Corpuscular Volume 80.5 FL (87-102); Mean Platelet Volume 10.2 FL (9.6-12.0); Monocytes # 0.7 10*3/uL (0.11-0.8); Monocytes % 6.8 % (1.7-12.7); Neutrophils # 6.1 10*3/uL (1.4-7.4); Neutrophils % 61.1 % (38.7-73.9); Platelet Count 427 T/CUMM (130-400); Red Cell Distribution Width 13.2 % (9.3-17.3)
[2016-12-21 18:04] LABS: Alanine Aminotransferase 44 U/L (13-56); Albumin 4.1 G/DL (3.4-5.0); Alkaline Phosphatase 139 U/L (45-117); Aspartate Amino Transferase 24 U/L (0-37); Bilirubin,Total < 0.39 MG/DL (0.2-1.0); Blood Urea Nitrogen 9 MG/DL (7-18); Calcium 9.9 MG/DL (8.5-10.1); Glucose 121 MG/DL (74-106); Magnesium 2.2 MG/DL (1.8-2.4); Osmolality,Calculated 278.4 MOS/KG (273-304); Potassium 3.8 MMOL/L (3.5-5.1); Sodium 140 MMOL/L (136-145); Total Protein 8.5 G/DL (6.4-8.3)
[2016-12-21 18:05] LABS: Troponin I Only 0.271 NG/ML (0.00-0.045)
--- NOTE | 2016-12-21 18:16 | XRay Report ---
XR chest 2V Date: 12/21/2016 5:17 PM History: Shortness of breath Comparison: 12/06/2016 Technique: PA and lateral chest Findings: The heart is normal in size. The lungs are clear with unremarkable mediastinum. No acute osseous findings. Impression: No acute cardiopulmonary pathology identified. PROCEDURE INTERPRETED AT [facility] DEPARTMENT OF RADIOLOGY Final Report Signed by: Dr. Lalita Gonsalez
[2016-12-21] MEDS ORDERED: NITROGLYCERIN 2% OINT 1 INCH/GM PACK TOP STA (18:23)
[2016-12-21] MEDS ORDERED: METOPROLOL TARTRATE 5 MG/5 ML VIAL IV STA (18:25)
--- NOTE | 2016-12-21 18:25 | Emergency Department Note ---
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 Mode of Arrival: Wheelchair Limitations: No Limitations Source: Patient, Family Time Seen by Provider: 12/21/16 18:21 - History of Present Illness HPI Narrative: This 56-year-old black female presents proxy 2 hours after having acute onset of shortness of breath which she freely admits is associated with a period of extreme anxiety. The patient is status post 2 weeks from an acute stroke with left-sided hemiparesis and slight expressive aphasia. Patient denies any cough , chills, fever, sputum, purulence, chest pain, nausea, vomiting, or other symptoms other than panic. Currently she states she is back to normal although she still feels very agitated. Onset (ago): hour(s) (Patient presents 2 hours post incident) Allergies/Adverse Reactions: Allergies Allergy/AdvReac Type Severity Reaction Status Date / Time No Known Allergies Allergy Verified 12/06/16 02:07 Home Medications: Home Medications Medication Instructions Recorded Confirmed Type Aspirin EC Tab 81 mg PO DAILY #30 tablet 12/10/16 12/21/16 Rx Atorvastatin [Lipitor] 40 mg PO BEDTIME #30 tablet 12/10/16 12/21/16 Rx Lisinopril [Prinivil] 20 mg PO DAILY #30 tablet 12/10/16 12/21/16 Rx Metoprolol Tartrate Tab [Lopressor 50 mg PO BID #60 tablet 12/10/16 12/21/16 Rx Tab] Zaleplon [Sonata] 5 mg PO BEDTIME PRN #30 capsule 12/10/16 12/21/16 Rx amLODIPine [Norvasc] 10 mg PO DAILY #30 tablet 12/10/16 12/21/16 Rx clonazePAM TAB [KlonoPIN] 0.25 mg PO BID PRN #60 tablet 12/10/16 12/21/16 Rx hydrALAZINE TAB [Apresoline Tab] 25 mg PO TID #90 tablet 12/10/16 12/21/16 Rx Review of System - Review of System 12 point system: reviewed and no additional remarkable complaints except as stated - Review of System Constitutional: Present: as per HPI Respiratory: Present: as per HPI Cardiovascular: Present: as per HPI Gastrointestinal: Present: as per HPI Neurological: Present: as per HPI Psychiatric: Present: as per HPI Medical,Surgical,& Family Hx - Medical History Cardio: History of: Hypertension Neurology: History of: Cerebrovascular Accident Musculoskeletal: No history of: Amputation - Surgical History Reproductive Surgeries: Patient denies;: Hysterectomy - Family History Family History: Reports;: Family Cancer, Family Heart Disease (father ([place])), Family Hypertension - Social History Smoking Status: Former smoker Exam Physical Examination: GENERAL: Well developed, well nourished black female in no acute distress. HEENT: Normocephalic. No trauma. Moist mucous membranes. EOMI. PERRLA. ENT NML NECK: Supple. No adenopathy. CARDIAC: Regular. No murmurs. Heart rate 120 CHEST: Clear to auscultation. No respiratory distress. O2 sat 98% ABDOMEN: Soft. Nontender. Active bowel sounds. EXTREMITIES: No trauma. Normal ROM. No pedal edema. SKIN: No diaphoresis. No rash. NEURO: Alert. Oriented 3 with deliberate speech pattern. Patient appears anxious. Motor sensory vibratory intact on the right with left upper extremity dense hemiparesis but retention of 4 out of 5 strength in the left lower extremity. Vital Signs: Vital Signs Temperature 98.3 F 12/21/16 18:58 Pulse Rate 97 H 12/21/16 18:58 Respiratory Rate 17 12/21/16 18:58 Blood Pressure 164/87 12/21/16 18:58 O2 Sat by Pulse Oximetry 100 12/21/16 18:55 Course - Reevaluation(s) Reevaluation #1: Advised patient that given her abnormality of cardiac enzymes and the situation she is most recently been through, she would require hospitalization for serial enzymes. - Consultations Consultation #1: Discussed with the hospitalist service who will admit for further evaluation and treatment. Results - Labs CBC & BMP: 12/21/16 17:17 12/21/16 17:17 Labs: I reviewed the laboratory and noted its gross normalcy excepting for positive troponin both initially and on repeat. - Impressions EKG: Sinus tachycardia with normal IA interval and QRS duration. Left ventricular hypertrophy with early strain pattern. No acute injury pattern noted. - Diagnostic Findings Procedure: Chest x-ray: image reviewed by me, report reviewed by me (Normal chest) Disposition Clinical Impression: Abnormal cardiac enzymes, Labile hypertension, Recent stroke Case discussed with: patient, patient's family Disposition: Still a Patient Condition: Guarded Time of Disposition: 19:30
[2016-12-21] MEDS ORDERED: LORazepam 2 MG/1 ML VIAL IV STA (18:30)
[2016-12-21 18:57] LABS: Troponin I Only 0.271 NG/ML (0.00-0.045)
[2016-12-21] MEDS ORDERED: NITROGLYCERIN 2% OINT 1 INCH/GM PACK TOP ONE (19:04)
[2016-12-21] MEDS ORDERED: METOPROLOL TARTRATE 5 MG/5 ML VIAL IV ONE (19:04)
[2016-12-21] MEDS ORDERED: LORazepam 2 MG/1 ML VIAL ONE (19:05)
[2016-12-21] MEDS ORDERED: ZALEPLON 5 MG CAPSULE PO PRN ×2 (19:16→19:18)
[2016-12-21] MEDS ORDERED: PROMETHAZINE 25 MG TABLET PO PRN (19:16)
[2016-12-21] MEDS ORDERED: BISACODYL 5 MG TABLET PO PRN (19:16)
[2016-12-21] MEDS ORDERED: hydrALAZINE 20 MG/1 ML VIAL IV STA (19:16)
[2016-12-21] MEDS ORDERED: ONDANSETRON 4 MG/2 ML VIAL IV PRN (19:16)
[2016-12-21] MEDS ORDERED: MORPHINE 2 MG/1 ML SYRINGE IV PRN (19:16)
[2016-12-21] MEDS ORDERED: ACETAMINOPHEN 325 MG TABLET PO PRN (19:16)
[2016-12-21] MEDS ORDERED: clonazePAM 0.5 MG TABLET PO PRN (19:18)
[2016-12-21] MEDS ORDERED: hydrALAZINE 20 MG/1 ML VIAL ONE (19:50)
--- NOTE | 2016-12-21 19:50 | Hospitalist History & Physical ---
Assessment and Plan (1) Elevated troponin Status: Acute Assessment and plan: Admit to telemetry. Consult cardiology. Echocardiogram reviewed from last week. Repeat cardiac enzymes every 6 hours 3. Lovenox for DVT prophylaxis. Continue home medications. Current Visit: Yes (2) Malignant hypertension Status: Acute Assessment and plan: Home medications resumed. As needed hydralazine ordered. Current Visit: No (3) Left-sided weakness Status: Chronic Assessment and plan: This is secondary to a late effect of her recent stroke. Current Visit: No History of Present Illness Chief complaint: SOB, anxiety History of present illness: Ms. Sprague is a 56 year old female with a history of hypertension and recent stroke who presents to the emergency department today accompanied by her daughter with shortness of breath acute onset at rest. She denies any chest pain. She reports a funny feeling came over her while she was sitting at home. She became anxious and short of breath. She used her Symbicort with no improvement. She came to the emergency department with her daughter for further evaluation. In the emergency department she was found to have an elevated troponin. She has been referred to the hospitalist service for repeat cardiac enzymes and cardiology consultation. Her echocardiogram from her previous hospitalization shows an ejection fraction of 60% with no valvulopathy. Her EKG shows sinus tachycardia with no ST segment elevations. She was treated with nitroglycerin paste and aspirin in the emergency department. She is being placed on telemetry with repeat cardiac enzymes and a consult for cardiology. Home Medications Medication Instructions Recorded Confirmed Type Aspirin EC Tab 81 mg PO DAILY #30 tablet 12/10/16 12/21/16 Rx Atorvastatin [Lipitor] 40 mg PO BEDTIME #30 tablet 12/10/16 12/21/16 Rx Lisinopril [Prinivil] 20 mg PO DAILY #30 tablet 12/10/16 12/21/16 Rx Metoprolol Tartrate Tab [Lopressor 50 mg PO BID #60 tablet 12/10/16 12/21/16 Rx Tab] Zaleplon [Sonata] 5 mg PO BEDTIME PRN #30 capsule 12/10/16 12/21/16 Rx amLODIPine [Norvasc] 10 mg PO DAILY #30 tablet 12/10/16 12/21/16 Rx clonazePAM TAB [KlonoPIN] 0.25 mg PO BID PRN #60 tablet 12/10/16 12/21/16 Rx hydrALAZINE TAB [Apresoline Tab] 25 mg PO TID #90 tablet 12/10/16 12/21/16 Rx Allergies Allergy/AdvReac Type Severity Reaction Status Date / Time No Known Allergies Allergy Verified 12/06/16 02:07 Medical,Surgical,& Family Hx - Medical History Cardio: History of: Cerebrovascular Disease, Hypertension Neurology: History of: Cerebrovascular Accident Respiratory: History of: Asthma Musculoskeletal: No history of: Amputation - Surgical History Reproductive Surgeries: Patient denies;: Hysterectomy - Family History Family History: Reports;: Family Cancer, Family Heart Disease (father ([place])), Family Hypertension - Social History Smoking Status: Former smoker Have you smoked in the last 12 months: No Frequency of Alcohol Use: None Type of Drug Use: None Lives With:: Children Functional capacity: uses cane/walker 12 point system: reviewed and no additional remarkable complaints except as stated Exam - Constitutional Vitals: Period Temp Pulse Resp BP Sys/Garza Pulse Ox Last 24 Hr 98.3 F-98.3 F 97-119 17-24 164-193/87-98 99-100 Exam: Constitutional System: Mild left upper extremity with flaccid paralysis distress. No tremulousness. Head: Normocephalic, atraumatic. Ears, Nose and Throat System: No pain or tenderness. No epistaxis or discharge Eyes System: Pupils equal, round, and reactive. Extraocular muscles intact. Neck: Supple, without adenopathy, No jugular venous distention. No thyromegaly, neck mass, or prior surgery apparent. Respiratory System: Chest clear to auscultation. Cardiovascular System: Heart with regular rate and rhythm. No murmur. GI System: Abdomen soft, nontender. Normo active bowel sounds present. Musculoskeletal System: limbs with no pedal edema. Full distal pulses. Neurological System:. Left lower extremity with significant weakness compared to the right. This is all a late effect of her previous stroke. No facial asymmetry. No aphasia Psychiatric System: Conversation is rational Results - Labs CBC & BMP: 12/21/16 17:17 12/21/16 17:17 Lab Results: I have reviewed the past 24 hour labs - EKG EKG results: normal axis EKG shows: tachycardia, sinus rhythm - Diagnostic Findings Procedure: Chest x-ray: image reviewed by me, report reviewed by me
[2016-12-21] MEDS ORDERED: LABETALOL 20 MG/4 ML SYRINGE IV PRN (19:54)
[2016-12-21] MEDS ORDERED: ENOXAPARIN 40 MG/0.4 ML SYRINGE SUBCUT SCH (21:00)
[2016-12-21] MEDS ORDERED: ATORVASTATIN 40 MG TABLET PO SCH (21:00)
[2016-12-21 21:42] LABS: Troponin I Only 0.231 NG/ML (0.00-0.045)
[2016-12-21] MEDS: METOPROLOL TARTRATE 50 MG TABLET PO SCH (22:47)
[2016-12-21] MEDS: hydrALAZINE 25 MG TABLET PO SCH (22:47)
[2016-12-22 04:40] LABS: Albumin 3.1 G/DL (3.4-5.0); Bilirubin,Total 0.9 MG/DL (0.2-1.0); Calcium 9.3 MG/DL (8.5-10.1); Magnesium 2.3 MG/DL (1.8-2.4); Osmolality,Calculated 278.3 MOS/KG (273-304); Thyroid Stimulating Hormone 0.88 uIU/ml (0.358-3.74); Total Protein 6.7 G/DL (6.4-8.3)
--- NOTE | 2016-12-22 06:53 | EKG Report ---
Stationary ECG Study [facility] Test Date: 12/22/2016 6:51:08 AM Pat Name: UMA AYERS Department: Room: 268 Gender: F Silo Man: ELLIOTT : 1960 Requested by: Patricia Woodson Order Number: [id number] Reading MD: MASSIMO VICKERS Intervals [place] Rate: 78 P: 51 AK: 192 QRS: -1 QRSD: 84 T: 163 QT: 361 QTc: 395 Interpretive Statements SINUS RHYTHM LEFT VENTRICULAR HYPERTROPHY AND ST-T CHANGE Electronically Signed On 12-22-16 17:47:19 CDT by MASSIMO VICKERS [email or web address]
--- NOTE | 2016-12-22 08:05 | Event Note ---
I went to see the patient shortly before 0800 AM and she was in the restroom bathing off. I will return to see the patient later after she has finished freshening up and brushing her teeth. She did not seem to be in any acute distress at the time of my entrance. I will perform her full HPI and exam later this morning.
[2016-12-22 08:46] LABS: Troponin I Only 0.248 NG/ML (0.00-0.045)
[2016-12-22] MEDS: hydrALAZINE 25 MG TABLET PO SCH ×2 (08:54→15:17)
[2016-12-22] MEDS: METOPROLOL TARTRATE 50 MG TABLET PO SCH (08:54)
[2016-12-22] MEDS ORDERED: amLODIPine 10 MG TABLET PO SCH (09:00)
[2016-12-22] MEDS ORDERED: ASPIRIN EC 81 MG TABLET PO SCH (09:00)
[2016-12-22] MEDS ORDERED: LISINOPRIL 20 MG TABLET PO SCH (09:00)
[2016-12-22] MEDS ORDERED: PANTOPRAZOLE 40 MG TABLET PO SCH (09:00)
[2016-12-22 10:28] LABS: Risk Ratio 2.3; VLDL CHOLESTEROL 15.8 MG/DL
--- NOTE | 2016-12-22 10:30 | Cardiology Consult Note ---
<Consuelo Ernandez E - Last Filed: 12/22/16 10:08> Assessment and Plan - Time spent with patient Time spent with patient: Greater than 30 minutes (due to assessment, plan, and documentation) Time spent discussing smoking cessation with patient: 3 to 10 minutes (1) Acute dyspnea Status: Acute Assessment and plan: See plan of care listed below. Current Visit: Yes (2) Acute CVA (cerebrovascular accident) Status: Chronic Assessment and plan: See plan of care listed below. Current Visit: No (3) Malignant hypertension Status: Chronic Assessment and plan: See plan of care listed below. Current Visit: No (4) Dyslipidemia Status: Chronic Assessment and plan: See plan of care listed below. Current Visit: Yes (5) Anxiety and depression Status: Chronic Assessment and plan: See plan of care listed below. Current Visit: Yes (6) Former tobacco use Status: Chronic Assessment and plan: See plan of care listed below. Current Visit: Yes (7) Left-sided weakness Status: Chronic Assessment and plan: See plan of care listed below. 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 She has a history of hypertension, anxiety and depression, and recent CVA. She was just discharged from the hospital on December 10, 2016 after having an acute CVA. She still has residual left lower extremity weakness and left upper extremity weakness to the point where her left arm is nearly flaccid. She is a former smoker having quit proximally 2 weeks ago after her stroke. She has a family history of coronary disease with a father who had an IN at age 81, mother who has had an IN, and brother who had an IN in his 40s. Patient presented to the hospital yesterday evening after 2 episodes of acute dyspnea. She tells me that yesterday she woke up feeling hot all over and short of breath and then became very nervous. She had associated lightheadedness and tightness in her chest tells me she had no pain. She denies palpitations, diaphoresis, dizziness, or syncope. She tells me this lasted for approximately minute and went away on its own. She tells me later came back again and was the same as before. She subsequently presented to the emergency room for further evaluation and treatment. Ms. Sprague has very flat affect and has a slight stutter to her speech as well. She has poor eye contact. She does have a male friend (Rl) at the bedside as well as her daughter (Silvana). Since arriving at the hospital she has had no subsequent episodes of shortness of breath. She does admit to snoring at night. She does require assistance when ambulating. She has no PCP and is uninsured. Her daughter reports they plan on establishing care with [facility]. She has had some slight troponin elevations with peak troponin 0.271. Her CPK and CK-MB have remained normal. Her d-dimer was negative and chest x-ray was clear. BNP 80. Her EKG shows sinus rhythm with LVH and ST-T abnormality, grossly unchanged from previous. Hemoglobin A1C was 5.8. Assessment/Plan: 1. Acute dyspnea - Patient presents with atypical anginal symptoms. She has an abnormal EKG, unchanged from previous, trivial troponin elevation. After further discussion with Dr. Waldrop, given her risk factors and presentation, we will keep her NPO and proceed with nuclear stress testing. Given her recent stroke and deficits, it's likely she will require Lexiscan to complete testing. If stress test is negative, this sounds like it could have been a panic attack. 2. Recent CVA - Patient discharged on 12/10/16 after being diagnosed with acute stroke. 3. Hypertension - Elevated on admission, now well controlled. We will continue her home medications, monitor, and adjust accordingly during hospitalization. 4. Dyslipidemia - Continue lipid-lowering agent. Will recheck lipid panel. 5. Anxiety and depression - Will defer further management and treatment to hospital medicine. 6. Former tobacco abuse - Quit approximately 2-3 weeks ago when she had her stroke. Spent greater than 5 minutes discussing the importance of compliance with cessation. 7. Left sided weakness - Patient has weakness in left lower extremity but is able to walk with assistance. Her left arm is nearly flaccid and she is only able to move her fingers slightly. CC: Diego Eden MD - Home Medications and Allergies Home Medications: Home Medications Medication Instructions Recorded Confirmed Type Aspirin EC Tab 81 mg PO DAILY #30 tablet 12/10/16 12/21/16 Rx Atorvastatin [Lipitor] 40 mg PO BEDTIME #30 tablet 12/10/16 12/21/16 Rx Lisinopril [Prinivil] 20 mg PO DAILY #30 tablet 12/10/16 12/21/16 Rx Metoprolol Tartrate Tab [Lopressor 50 mg PO BID #60 tablet 12/10/16 12/21/16 Rx Tab] Zaleplon [Sonata] 5 mg PO BEDTIME PRN #30 capsule 12/10/16 12/21/16 Rx amLODIPine [Norvasc] 10 mg PO DAILY #30 tablet 12/10/16 12/21/16 Rx clonazePAM TAB [KlonoPIN] 0.25 mg PO BID PRN #60 tablet 12/10/16 12/21/16 Rx hydrALAZINE TAB [Apresoline Tab] 25 mg PO TID #90 tablet 12/10/16 12/21/16 Rx Allergies/Adverse Reactions: Allergies Allergy/AdvReac Type Severity Reaction Status Date / Time No Known Allergies Allergy Verified 12/06/16 02:07 Review of systems: - Constitutional: Present: weakness, As per HPI. Absent: anorexia, chills, daytime sleepiness, excessive sweating, fever(s), frequent falls, headache(s), increased appetite, lethargy, malaise, night sweats, stops breathing during sleep, weight gain, weight loss, fatigue. - EENT Eyes: Present: As per HPI. Absent: blurry vision, diplopia, loss of vision Ears: Present: As per HPI. Absent: decreased hearing, ear discharge, ear pain Nose, mouth and throat: Present: As per HPI. Absent: dysphagia, epistaxis, headache(s), hoarseness, lip swelling, nasal congestion, neck mass, neck pain, sinus pressure, sore throat, throat swelling, tongue swelling, vertigo - Cardiovascular: Present: dyspnea, lightheadedness, as per HPI. Absent: chest pain at rest, chest pain with activity, dyspnea on exertion, edema, claudication , diaphoresis, radiating jaw, neck or arm pain, orthopnea, palpitations, PND - Respiratory: Present: dyspnea, snoring, as per HPI. Absent: dyspnea on exertion, cough, hemoptysis, wheezing, pain on inspiration - Gastrointestinal: Present: As per HPI. Absent: abdominal pain, bloating, change in bowel habits, constipation, diarrhea, heartburn, hematemesis, hematochezia, loose stools, melena, nausea, vomiting - Genitourinary: Present: As per HPI. Absent: difficulty urinating, dysuria, flank pain, hematuria, nocturia, urinary frequency, urinary incontinence - Musculoskeletal: Present: As per HPI. Absent: arthralgias, back pain, joint swelling, limited range of motion, muscle cramps, muscle weakness, myalgias - Neurological: Present: abnormal gait, abnormal speech (stutter), As per HPI. Absent: behavioral changes, confusion, convulsions, disequilibrium, dizziness, focal weakness, frequent falls, headache(s), memory loss, numbness, paresthesias , radicular pain, syncope, tremor(s) - Psychiatric: Present: anxiety, depression, As per HPI. Absent: confusion, panic attacks - Endocrine: Present: As per HPI. Absent: cold intolerance, fatigue, heat intolerance, polydipsia, polyphagia - Hematologic/Lymphatic: Present: As per HPI. Absent: easy bleeding, easy bruising, lymphadenopathy Medical,Surgical,& Family Hx - Medical History Cardio: History of: Cerebrovascular Disease, Hypertension Psychological: History of: Anxiety Disorders, Depression Neurology: History of: Cerebrovascular Accident No history of: Brain Aneurysm, Cerebral Hemorrhage Endocrine: History of: Dyslipidemia Respiratory: History of: Asthma Musculoskeletal: No history of: Amputation - Surgical History Neurologic Surgeries: Patient denies: Brain Aneurysm, Cerebral Hemorrhage Abdominal Surgeries: Patient denies: Abdominal Surgery Reproductive Surgeries: Patient denies;: Gynecologic Surgery, Hysterectomy - Family History Family History: Reports;: Family Cancer, Family Heart Disease (father ([place])), Family Hypertension - Social History Smoking Status: Former smoker Frequency of Alcohol Use: None Type of Drug Use: None Marital Status: Single Lives With:: Children Functional capacity: uses cane/walker Physical Examination Vital Signs Temp Pulse Resp BP Pulse Ox 98.3 F 119 H 24 193/98 99 12/21/16 17:11 12/21/16 17:11 12/21/16 17:11 12/21/16 17:11 12/21/16 17:11 Other: General appearance: Pleasant and cooperative. Overweight, no acute distress. Stutter present in speech. - Head Head exam: Present: normal inspection, normocephalic, atraumatic. Absent: hematoma, laceration - Eye Eye exam: Present: EOMI. Absent: conjunctival injection, nystagmus, periorbital swelling, scleral icterus, laceration to eyelids Pupils: Present: PERRL. Absent: constricted, dilated, fixed, irregular, unequal - ENT ENT exam: Present: normal exam, normal external ear exam - Neck Neck exam: Present: normal inspection. Absent: lymphadenopathy, meningismus, tenderness, thyromegaly - Respiratory Respiratory exam: Present: clear to auscultation bilaterally. Absent: accessory muscle use, chest wall tenderness - Cardiovascular Cardiovascular exam: Present: regular rate and rhythm. Absent: carotid bruit, gallop, JVD, rubs, murmur - GI/Abdominal GI/Abdominal exam: Present: normal bowel sounds, soft. Absent: distended, firm , guarding, hernia, mass, tenderness, rebound. - Extremities Exam Extremities exam: Present: normal inspection, normal capillary refill. Upper extremity pulses 2+. Lower extremity pulses 2+. Nearly flaccid left upper extremity, only able to move left fingers very slightly. Left lower extremity weaker than RLE. Absent: calf tenderness, edema -Musculoskeletal Exam Musculoskeletal: Present: No Fluid Collection, No Pain - Back Exam Back exam: Present: normal inspection. Absent: muscle spasm, vertebral tenderness - Neurological Exam Neurological exam: Present: alert, oriented X3, grossly intact without resting or essential tremor - Psychiatric Psychiatric exam: Present: flat affect, normal mood - Skin Skin exam: Present: normal color, warm, dry, intact. Absent: cyanosis, diaphoretic, rash, urticaria Result/EKG - Labs CBC & BMP: 12/21/16 17:17 12/22/16 02:47 Lab Results: I have reviewed the past 24 hour labs Labs: Laboratory Results - last 24 hr 12/21/16 12/21/16 12/21/16 17:17 17:17 17:17 WBC 10.0 RBC 5.50 Hgb 14.6 Hct 44.3 MCV 80.5 L MCH 27 MCHC 33.0 RDW 13.2 Plt Count 427 H MPV 10.2 Neut % (Auto) 61.1 Lymph % (Auto) 30.5 [place] % (Auto) 6.8 Eos % (Auto) 0.9 Baso % (Auto) 0.4 Neut # (Auto) 6.1 Lymph # (Auto) 3.1 [place] # (Auto) 0.7 Eos # (Auto) 0.1 Baso # (Auto) 0.0 Immature Gran % 0.3 Nucleated RBC % 0.0 Immature Gran # 0.03 Nucleated RBCs # 0.00 D-Dimer, Quantitative <= 0.5 Sodium 140 Potassium 3.8 Chloride 104 Carbon Dioxide 27 Anion Gap 12.8 BUN 9 Creatinine 0.80 GFR Calculation 98 BUN/Creatinine Ratio 11.00 Glucose 121 H Hemoglobin A1c Calculated Osmolality 278.4 Calcium 9.9 Magnesium 2.2 Total Bilirubin < 0.39 AST 24 ALT 44 Alkaline Phosphatase 139 H Total Creatine Kinase CK-MB (CK-2) Troponin I 0.271 H B-Natriuretic Peptide Total Protein 8.5 H Albumin 4.1 Globulin 4.4 H Albumin/Globulin Ratio 0.9 L TSH 3rd Generation 12/21/16 12/21/16 12/21/16 17:17 18:00 20:59 WBC RBC Hgb Hct MCV MCH MCHC RDW Plt Count MPV Neut % (Auto) Lymph % (Auto) [place] % (Auto) Eos % (Auto) Baso % (Auto) Neut # (Auto) Lymph # (Auto) [place] # (Auto) Eos # (Auto) Baso # (Auto) Immature Gran % Nucleated RBC % Immature Gran # Nucleated RBCs # D-Dimer, Quantitative Sodium Potassium Chloride Carbon Dioxide Anion Gap BUN Creatinine GFR Calculation BUN/Creatinine Ratio Glucose Hemoglobin A1c Calculated Osmolality Calcium Magnesium Total Bilirubin AST ALT Alkaline Phosphatase Total Creatine Kinase 107 104 CK-MB (CK-2) < 1.0 1.2 Troponin I 0.271 H 0.231 H B-Natriuretic Peptide 43 Total Protein Albumin Globulin Albumin/Globulin Ratio TSH 3rd Generation 12/22/16 12/22/16 12/22/16 02:47 02:47 02:47 WBC RBC Hgb Hct MCV MCH MCHC RDW Plt Count MPV Neut % (Auto) Lymph % (Auto) [place] % (Auto) Eos % (Auto) Baso % (Auto) Neut # (Auto) Lymph # (Auto) [place] # (Auto) Eos # (Auto) Baso # (Auto) Immature Gran % Nucleated RBC % Immature Gran # Nucleated RBCs # D-Dimer, Quantitative Sodium 141 Potassium 4.0 Chloride 105 Carbon Dioxide 27 Anion Gap 13.0 BUN 11 Creatinine 0.70 GFR Calculation 120 BUN/Creatinine Ratio 15.00 Glucose 82 Hemoglobin A1c 5.8 Calculated Osmolality 278.3 Calcium 9.3 Magnesium 2.3 Total Bilirubin 0.90 AST 14 ALT 31 Alkaline Phosphatase 107 Total Creatine Kinase CK-MB (CK-2) Troponin I B-Natriuretic Peptide 80 Total Protein 6.7 Albumin 3.1 L Globulin 3.6 H Albumin/Globulin Ratio 0.8 L TSH 3rd Generation 0.880 12/22/16 12/22/16 02:47 07:50 WBC RBC Hgb Hct MCV MCH MCHC RDW Plt Count MPV Neut % (Auto) Lymph % (Auto) [place] % (Auto) Eos % (Auto) Baso % (Auto) Neut # (Auto) Lymph # (Auto) [place] # (Auto) Eos # (Auto) Baso # (Auto) Immature Gran % Nucleated RBC % Immature Gran # Nucleated RBCs # D-Dimer, Quantitative Sodium Potassium Chloride Carbon Dioxide Anion Gap BUN Creatinine GFR Calculation BUN/Creatinine Ratio Glucose Hemoglobin A1c Calculated Osmolality Calcium Magnesium Total Bilirubin AST ALT Alkaline Phosphatase Total Creatine Kinase 82 D 84 CK-MB (CK-2) 1.2 1.5 Troponin I 0.230 H 0.248 H B-Natriuretic Peptide Total Protein Albumin Globulin Albumin/Globulin Ratio TSH 3rd Generation - EKG EKG results: interpreted by me, sinus rhythm (with LVH and ST-T abnormality, unchanged from previous EKG. ) <Sampson Waldrop - Last Filed: 12/22/16 12:23> History of Present Illness - Consult Narrative History of present illness: Cardiology addendum Patient examined and chart reviewed and discussed with nurse Consuelo Ernandez NP. Status post basal ganglia stroke December 07, 2016. MRI scan also showed evidence for old lacunar right basal ganglia infarct Admitted with uncontrolled hypertension dyspnea and a panic attack. Patient has not smoked since her stroke. Trivial troponin bump 0.231 and 0.248. Normal BNP level creatinine 0.7 Recent echo showed ejection fraction 60% with normal valves Plan Lexiscan cardiac stress test Antianxiety medication Optimize BP meds Discussed with daughter Zeina Shine CC: Diego Eden MD Physical Examination Vital Signs Temp Pulse Resp BP Pulse Ox 98.3 F 119 H 24 193/98 99 12/21/16 17:11 12/21/16 17:11 12/21/16 17:11 12/21/16 17:11 12/21/16 17:11 Result/EKG - Labs CBC & BMP: 12/21/16 17:17 12/22/16 02:47 Labs: Laboratory Results - last 24 hr 12/21/16 12/21/16 12/21/16 17:17 17:17 17:17 WBC 10.0 RBC 5.50 Hgb 14.6 Hct 44.3 MCV 80.5 L MCH 27 MCHC 33.0 RDW 13.2 Plt Count 427 H MPV 10.2 Neut % (Auto) 61.1 Lymph % (Auto) 30.5 [place] % (Auto) 6.8 Eos % (Auto) 0.9 Baso % (Auto) 0.4 Neut # (Auto) 6.1 Lymph # (Auto) 3.1 [place] # (Auto) 0.7 Eos # (Auto) 0.1 Baso # (Auto) 0.0 Immature Gran % 0.3 Nucleated RBC % 0.0 Immature Gran # 0.03 Nucleated RBCs # 0.00 D-Dimer, Quantitative <= 0.5 Sodium 140 Potassium 3.8 Chloride 104 Carbon Dioxide 27 Anion Gap 12.8 BUN 9 Creatinine 0.80 GFR Calculation 98 BUN/Creatinine Ratio 11.00 Glucose 121 H Hemoglobin A1c Calculated Osmolality 278.4 Calcium 9.9 Magnesium 2.2 Total Bilirubin < 0.39 AST 24 ALT 44 Alkaline Phosphatase 139 H Total Creatine Kinase CK-MB (CK-2) Troponin I 0.271 H B-Natriuretic Peptide Total Protein 8.5 H Albumin 4.1 Globulin 4.4 H Albumin/Globulin Ratio 0.9 L Triglycerides Cholesterol LDL Cholesterol VLDL Cholesterol HDL Cholesterol Heart Disease Risk Ratio TSH 3rd Generation 12/21/16 12/21/16 12/21/16 17:17 18:00 20:59 WBC RBC Hgb Hct MCV MCH MCHC RDW Plt Count MPV Neut % (Auto) Lymph % (Auto) [place] % (Auto) Eos % (Auto) Baso % (Auto) Neut # (Auto) Lymph # (Auto) [place] # (Auto) Eos # (Auto) Baso # (Auto) Immature Gran % Nucleated RBC % Immature Gran # Nucleated RBCs # D-Dimer, Quantitative Sodium Potassium Chloride Carbon Dioxide Anion Gap BUN Creatinine GFR Calculation BUN/Creatinine Ratio Glucose Hemoglobin A1c Calculated Osmolality Calcium Magnesium Total Bilirubin AST ALT Alkaline Phosphatase Total Creatine Kinase 107 104 CK-MB (CK-2) < 1.0 1.2 Troponin I 0.271 H 0.231 H B-Natriuretic Peptide 43 Total Protein Albumin Globulin Albumin/Globulin Ratio Triglycerides Cholesterol LDL Cholesterol VLDL Cholesterol HDL Cholesterol Heart Disease Risk Ratio TSH 3rd Generation 12/22/16 12/22/16 12/22/16 02:47 02:47 02:47 WBC RBC Hgb Hct MCV MCH MCHC RDW Plt Count MPV Neut % (Auto) Lymph % (Auto) [place] % (Auto) Eos % (Auto) Baso % (Auto) Neut # (Auto) Lymph # (Auto) [place] # (Auto) Eos # (Auto) Baso # (Auto) Immature Gran % Nucleated RBC % Immature Gran # Nucleated RBCs # D-Dimer, Quantitative Sodium 141 Potassium 4.0 Chloride 105 Carbon Dioxide 27 Anion Gap 13.0 BUN 11 Creatinine 0.70 GFR Calculation 120 BUN/Creatinine Ratio 15.00 Glucose 82 Hemoglobin A1c 5.8 Calculated Osmolality 278.3 Calcium 9.3 Magnesium 2.3 Total Bilirubin 0.90 AST 14 ALT 31 Alkaline Phosphatase 107 Total Creatine Kinase CK-MB (CK-2) Troponin I B-Natriuretic Peptide 80 Total Protein 6.7 Albumin 3.1 L Globulin 3.6 H Albumin/Globulin Ratio 0.8 L Triglycerides Cholesterol LDL Cholesterol VLDL Cholesterol HDL Cholesterol Heart Disease Risk Ratio TSH 3rd Generation 0.880 12/22/16 12/22/16 12/22/16 02:47 07:50 07:50 WBC RBC Hgb Hct MCV MCH MCHC RDW Plt Count MPV Neut % (Auto) Lymph % (Auto) [place] % (Auto) Eos % (Auto) Baso % (Auto) Neut # (Auto) Lymph # (Auto) [place] # (Auto) Eos # (Auto) Baso # (Auto) Immature Gran % Nucleated RBC % Immature Gran # Nucleated RBCs # D-Dimer, Quantitative Sodium Potassium Chloride Carbon Dioxide Anion Gap BUN Creatinine GFR Calculation BUN/Creatinine Ratio Glucose Hemoglobin A1c Calculated Osmolality Calcium Magnesium Total Bilirubin AST ALT Alkaline Phosphatase Total Creatine Kinase 82 D 84 CK-MB (CK-2) 1.2 1.5 Troponin I 0.230 H 0.248 H B-Natriuretic Peptide Total Protein Albumin Globulin Albumin/Globulin Ratio Triglycerides 79 Cholesterol 108 LDL Cholesterol 51.0 VLDL Cholesterol 15.8 HDL Cholesterol 47 Heart Disease Risk Ratio 2.30 TSH 3rd Generation
[2016-12-22] MEDS ORDERED: REGADENOSON 0.4 MG/5 ML SYRINGE IV ONE (11:22)
--- NOTE | 2016-12-22 12:46 | Event Note ---
Ms. Sprague attempted Lexiscan walk but was unable to keep up with the slowest pace allowed by treadmill due to left sided weakness from recent CVA. She was asssisted to wheelchair and Lexiscan protocol was utilized. She had no chest pain, lightheadedness, syncope, nausea, or vomiting but did have some mild shortness of breath and dizziness. She had no acute EKG changes but did have some deepening of T waves. Patient was then transitioned to nuclear medicine for final scan. Dr. Waldrop to read, interpret, and advise.
--- NOTE | 2016-12-22 13:20 | Hospitalist Progress Note ---
Assessment and Plan - Time spent with patient Time spent with patient: Less than 30 minutes (1) Anxiety and depression Status: Chronic Assessment and plan: patient shows no signs of anxiety during evaluation. denies feeling anxious at this time. calm and cooperative with questions and answers. will continue PRN medications at this time; Current Visit: Yes (2) Dyslipidemia Status: Chronic Assessment and plan: 12/22/16 patient is on Lipitor; Labs: triglycerides 79; cholesterol 108; LDL 51.0 ; HDL 47; will continue Lipitor and continue to monitor. Current Visit: Yes (3) Elevated troponin Status: Acute Assessment and plan: being followed by cardiology waiting for results of lexiscan that was completed today; troponin is 0.248; up from 0.230 - patient recent Echo showed EF 60% and normal valves; BNP 80; will continue to monitor closely. Current Visit: Yes Hospitalist: Subjective Interval history: 12/22/16 - patient had just returned to room after lexiscan; she was awake and able to answer all questions well: she reports a good night; Denies SOB; chest pain; denies change in left sided weakness that is related to stroke about 2 weeks ago. she is being followed by cardiology: cardiology services noted that she was unable to keep up with lowest speed on treadmill and lexiscan was completed without chest pain, nausea or vomiting; did have mild shortness of breath and dizziness; some deeping of T waves;Dr delgado to interpret. Exam - Constitutional Vitals: Period Temp Pulse Resp BP Sys/Garza Pulse Ox Last 24 Hr 97.1 F-99.1 F 81-119 17-24 97-193/60-98 91-100 General appearance: normal weight - Head Head exam: Present: normal inspection - Eye Eye exam: Present: EOMI Pupils: Present: CARMELITA - Neck Neck exam: Present: normal inspection - Respiratory Respiratory exam: Present: clear to auscultation bilaterally - Cardiovascular Cardiovascular exam: Present: regular rate and rhythm - GI/Abdominal GI/Abdominal exam: Present: normal bowel sounds, soft. Absent: guarding, rebound - Extremities Exam Extremities exam: Present: other (left side weakness related to stroke 2 weeks ago) - Neurological Exam Neurological exam: Present: alert, oriented X3 - Psychiatric Psychiatric exam: Present: normal affect - Skin Skin exam: Present: normal color, warm, dry Results - Labs CBC & BMP: 12/21/16 17:17 12/22/16 02:47 Lab Results: I have reviewed the past 24 hour labs Labs: triglycerides:79 cholesterol 108 LDL 51.0 HDL 47 Troponin 0.248 up from 0.230 BNP 80
--- NOTE | 2016-12-22 16:49 | Nuclear Medicine Report ---
DATE: 12/22/2016 PROCEDURE: Lexiscan Cardiolite gated SPECT perfusion study. INITIAL IMPRESSION: 1. A 56-YEAR-OLD WITH ATYPICAL CHEST PAIN. 2. HYPERTENSION. 3. ABNORMAL EKG. 4. TRIVIAL TROPONIN ELEVATION. FINAL IMPRESSION: NORMAL LEXISCAN CARDIOLITE GATED SPECT PERFUSION STUDY. I: DESCRIPTION OF PROCEDURE: The patient received 10.0 mCi of Technetium-99m Cardiolite IV and rest imaging was obtained in the routine manner 20 minutes later. The patient now received 0.4 mg IV Severiano iscan followed by 30.0 mCi of Technetium-99m Cardiolite IV and pharmacologic stress imaging was obtai joni in the routine manner 20 minutes later. Serial electrocardiograms were performed. The initial b lood pressure was 122/82 and it was 118/80 immediately post Lexiscan. The peak heart rate was 123. II. RESULTS: The patient had no chest pain or arrhythmias and tolerated the Lexiscan infusion well. The resting EKG demonstrates normal sinus rhythm, LVH with strain pattern. With pharmacologic stre ss, no diagnostic EKG changes occurred. No arrhythmias. Tomographic imaging demonstrates homogeneous uptake of radioisotope in all segments. There is no wayne dence for ischemia or scar. Gated SPECT imaging demonstrates normal wall motion and thickening in al l segments. The calculated ejection fraction is 67%. III. FINAL IMPRESSION: 1. CLINICALLY AND ELECTROCARDIOGRAPHICALLY NEGATIVE. 2. SCINTIGRAPHICALLY NORMAL PERFUSION STUDY. IV. DISPOSITION: The patient should be reassured regarding the lack of any evidence for significant coronary artery disease at this time. She had no chest pain or diagnostic EKG changes and tomograph ic imaging is normal. In addition, ventricular function is well preserved with ejection fraction of 57%. This is a low-risk scan. Continued medical therapy and risk factor modification recommended. Procedure performed and interpreted at [facility] Department of Radiology.
--- NOTE | 2016-12-22 18:16 | Discharge Summary ---
Hospital Course - Hospital Course Hospital Course: The patient was admitted to the hospital with shortness of breath. Myocardial infarction was ruled out by EKG and enzymes. The patient had cardiology evaluation with Dr. Waldrop. Resting Lexiscan was performed and the patient had no evidence of coronary ischemia. The patient is now ready for discharge home and follow-up with her usual primary care physician. At the time of discharge, chest is clear and heart has regular rate and rhythm. Abdomen is soft. - Time spent with patient Time with patient DS: Less than 30 minutes Diagnosis - Discharge Diagnosis (1) Acute dyspnea Status: Suspected (2) Anxiety and depression Status: Chronic Discharge Plan - Discharge Data Disposition: Disch To Home/Self Care Condition at Discharge: Stable Activity: resume usual activities as tolerated - Discharge Medications Continue RX: Aspirin EC Tab 81 mg PO DAILY #30 tablet RX: Atorvastatin [Lipitor] 40 mg PO BEDTIME #30 tablet RX: Lisinopril [Prinivil] 20 mg PO DAILY #30 tablet RX: Zaleplon [Sonata] 5 mg PO BEDTIME PRN #30 capsule PRN Reason: Sleep RX: clonazePAM TAB [KlonoPIN] 0.25 mg PO BID PRN #60 tablet PRN Reason: Anxiety RX: hydrALAZINE TAB [Apresoline Tab] 25 mg PO TID #90 tablet RX: Metoprolol Tartrate Tab [Lopressor Tab] 50 mg PO BID #60 tablet RX: amLODIPine [Norvasc] 10 mg PO DAILY #30 tablet - Follow Up or Referral Follow Up: Your,PCP [Other] - 2 Weeks - Forms/Instructions Exam - Constitutional Vitals: Period Temp Pulse Resp BP Sys/Garza Pulse Ox Last 24 Hr 97.1 F-99.1 F 81-119 17-20 97-193/60-98 91-100 Discharge Results Procedures and tests throughout hospitalization: Pending Orders 12/23/16 04:00 Basic Metabolic Panel w/Mg IN AM CBC [Comp Blood Count Auto Diff] IN AM Troponin,CKMB & Ck Total IN AM Labs on day of discharge: Labs from last 24 hours 12/22/16 12/22/16 12/22/16 07:50 07:50 02:47 Sodium Potassium Chloride Carbon Dioxide Anion Gap BUN Creatinine GFR Calculation BUN/Creatinine Ratio Glucose Hemoglobin A1c Calculated Osmolality Calcium Magnesium Total Bilirubin AST ALT Alkaline Phosphatase Total Creatine Kinase 84 82 D CK-MB (CK-2) 1.5 1.2 Troponin I 0.248 H 0.230 H B-Natriuretic Peptide Total Protein Albumin Globulin Albumin/Globulin Ratio Triglycerides 79 Cholesterol 108 LDL Cholesterol 51.0 VLDL Cholesterol 15.8 HDL Cholesterol 47 Heart Disease Risk Ratio 2.30 TSH 3rd Generation 12/22/16 12/22/16 12/22/16 02:47 02:47 02:47 Sodium 141 Potassium 4.0 Chloride 105 Carbon Dioxide 27 Anion Gap 13.0 BUN 11 Creatinine 0.70 GFR Calculation 120 BUN/Creatinine Ratio 15.00 Glucose 82 Hemoglobin A1c 5.8 Calculated Osmolality 278.3 Calcium 9.3 Magnesium 2.3 Total Bilirubin 0.90 AST 14 ALT 31 Alkaline Phosphatase 107 Total Creatine Kinase CK-MB (CK-2) Troponin I B-Natriuretic Peptide 80 Total Protein 6.7 Albumin 3.1 L Globulin 3.6 H Albumin/Globulin Ratio 0.8 L Triglycerides Cholesterol LDL Cholesterol VLDL Cholesterol HDL Cholesterol Heart Disease Risk Ratio TSH 3rd Generation 0.880 12/21/16 12/21/16 12/21/16 20:59 18:00 17:17 Sodium Potassium Chloride Carbon Dioxide Anion Gap BUN Creatinine GFR Calculation BUN/Creatinine Ratio Glucose Hemoglobin A1c Calculated Osmolality Calcium Magnesium Total Bilirubin AST ALT Alkaline Phosphatase Total Creatine Kinase 104 107 CK-MB (CK-2) 1.2 < 1.0 Troponin I 0.231 H 0.271 H B-Natriuretic Peptide 43 Total Protein Albumin Globulin Albumin/Globulin Ratio Triglycerides Cholesterol LDL Cholesterol VLDL Cholesterol HDL Cholesterol Heart Disease Risk Ratio TSH 3rd Generation DS: Provider Date of admission: 12/21/16 19:16 Primary care physician: . No PCP Attending physician on admission: Patricia Woodson MD Consults: 12/21/16 19:16 Consult to Physician [CONS] Routine Comment: elevated troponin Consulting Provider: Cardiology - [facility] Person Notified: Felicita Date Notified: 12/22/16 Time Notified: 08:35 Discharging clinician: Diego Eden MD
[2016-12-22 19:52] VITALS: BP 150/70
--- NOTE | 2016-12-23 13:24 | Physician Query Form ---
CLICK EDIT DOCUMENT TO SELECT QUERY ANSWER --> OK --> SIGN Agustina Alberto RN [employer] W) [phone] (f) [phone] [email or web address] PROVIDERS: Make your selection(s) from the choices in EACH section by typing an "x" and enter comments in the comment section. Please use your independent medical judgment in providing your response. This request does not imply that any particular answer is desired or expected. CLINICAL INDICATORS: (Providers should not edit this section) Based on documentation of "acute dyspnea". Dr. Waldrop's consult note states "this sounds like it could have been a panic attack". Lexiscan was performed and the patient had no evidence of coronary ischemia. Based on the above, could you clarify the appropriate diagnosis, if significant , that supports the above abnormalities and additional evaluation, monitoring, and/or treatment rendered: ( X) Acute dyspnea due to panic attack ( ) Acute dyspnea due to ( ) Other, please specify: ( ) Clinically unable to determine COMMENTS: PLEASE ALSO DOCUMENT RESPONSE IN PROGRESS NOTES AND/OR DISCHARGE SUMMARY Use of terms such as suspected, likely, or probable (associated with a specific diagnosis that is being evaluated, monitored, or treated as if it exists) are acceptable and can be restated in the discharge summary if not ruled out. MTDD
== END 2016-12-22 20:45 | disposition home or self-care (01) | DRG 880 ==
LOC: N.ED 17:07 → SUATTDRO 19:16 → N.EDINP 19:16 → N.TELES 20:18
PROVIDERS: ADMIT Family Medicine; ATTEND Internal Medicine

== ENCOUNTER 2016-12-31 11:43 | Inpatient (IN) ==
[2016-12-31] MEDS ORDERED: SODIUM CHLORIDE 0.9% 500 ML IV STA (12:35)
[2016-12-31] MEDS ORDERED: MECLIZINE 25 MG TABLET PO STA (12:35)
[2016-12-31] MEDS ORDERED: ONDANSETRON 4 MG/2 ML VIAL IV STA (12:35)
[2016-12-31] MEDS ORDERED: ONDANSETRON 4 MG/2 ML VIAL ONE (12:41)
[2016-12-31] MEDS ORDERED: MECLIZINE 25 MG TABLET ONE (12:41)
[2016-12-31 12:42] LABS: Basophils % 0.4 % (0.0-0.8); Eosinophils # 0.4 10*3/uL (0.0-0.87); Eosinophils % 4.1 % (0.00-10.9); Hematocrit 41.6 VOL% (35.7-47.0); Hemoglobin 13.7 GM/DL (12.0-16.0); Immature Granulocytes % 0.3 %; Immature Granulocytes Absolute 0.03 #; Lymphocytes # 3.5 10*3/uL (1.4-4.0); Lymphocytes % 34.5 % (21.3-54.2); Mean Corpuscular HGB Conc 32.9 GM/DL (32-36); Mean Corpuscular Hemoglobin 27 PG (27-34); Mean Corpuscular Volume 80.6 FL (87-102); Mean Platelet Volume 10.3 FL (9.6-12.0); Monocytes # 0.7 10*3/uL (0.11-0.8); Monocytes % 6.9 % (1.7-12.7); Neutrophils # 5.4 10*3/uL (1.4-7.4); Neutrophils % 53.8 % (38.7-73.9); Platelet Count 420 T/CUMM (130-400); Red Blood Count 5.16 MC/CUMM (3.8-5.5); Red Cell Distribution Width 13.2 % (9.3-17.3); White Blood Count 10.1 T/CUMM (4-12)
--- NOTE | 2016-12-31 12:42 | Emergency Department Note ---
Arrival - Arrival Chief Complaint: Dizziness Stated Complaint: dizzy. headache ED Nursing Triage Note: reports got up to bathroom and got dizzy. Mode of Arrival: Wheelchair Limitations: No Limitations Source: Patient, Family Time Seen by Provider: 12/31/16 12:35 - History of Present Illness HPI Narrative: Thiss 56 yo black female presents with syncope after standing up post voiding. noteable is no similar symptoms recently; however, she has had c/o severe ham the last 2 days that ceased post this episode.the pt denies chest pain, sob, nausea, vomiting, visual changes, or deterioration in her chronic aphasia post past cva that has left her with lue paresis and lle weakness. Onset (ago): hour(s) (Patient presents 2 hours post incident) Allergies/Adverse Reactions: Allergies Allergy/AdvReac Type Severity Reaction Status Date / Time No Known Allergies Allergy Verified 12/06/16 02:07 Home Medications: Home Medications Medication Instructions Recorded Confirmed Type Atorvastatin [Lipitor] 40 mg PO BEDTIME #30 tablet 12/10/16 12/31/16 Rx Lisinopril [Prinivil] 20 mg PO DAILY #30 tablet 12/10/16 12/31/16 Rx Metoprolol Tartrate Tab [Lopressor 50 mg PO BID #60 tablet 12/10/16 12/31/16 Rx Tab] Zaleplon [Sonata] 5 mg PO BEDTIME PRN #30 capsule 12/10/16 12/31/16 Rx amLODIPine [Norvasc] 10 mg PO DAILY #30 tablet 12/10/16 12/31/16 Rx hydrALAZINE TAB [Apresoline Tab] 25 mg PO TID #90 tablet 12/10/16 12/31/16 Rx Aspirin EC Tab 325 mg PO DAILY 12/31/16 12/31/16 History Review of System - Review of System 12 point system: reviewed and no additional remarkable complaints except as stated - Review of System Constitutional: Present: as per HPI Respiratory: Present: as per HPI Cardiovascular: Present: as per HPI Gastrointestinal: Present: as per HPI Neurological: Present: as per HPI Medical,Surgical,& Family Hx - Medical History Cardio: History of: Cerebrovascular Disease, Hypertension Psychological: History of: Anxiety Disorders, Depression Neurology: History of: Cerebrovascular Accident No history of: Brain Aneurysm, Cerebral Hemorrhage Endocrine: History of: Dyslipidemia Respiratory: History of: Asthma Musculoskeletal: No history of: Amputation - Surgical History Neurologic Surgeries: Patient denies: Brain Aneurysm, Cerebral Hemorrhage Abdominal Surgeries: Patient denies: Abdominal Surgery Reproductive Surgeries: Patient denies;: Gynecologic Surgery, Hysterectomy - Family History Family History: Reports;: Family Cancer, Family Heart Disease (father ([place])), Family Hypertension - Social History Smoking Status: Former smoker Exam Physical Examination: GENERAL: Obese black female in no acute distress. HEENT: Normocephalic. No trauma. Moist mucous membranes. EOMI. PERRLA. ENT NML NECK: Supple. No adenopathy. CARDIAC: Regular. No murmurs. Heart rate 99 CHEST: Clear to auscultation. No respiratory distress. O2 sat 100% ABDOMEN: Soft. Nontender. Active bowel sounds. EXTREMITIES: No trauma. Normal ROM. No pedal edema. SKIN: No diaphoresis. No rash. NEURO: Alert. Oriented 3. Right-sided motor, vibratory sensory intact left upper extremity paresis with left lower extremity weakness Vital Signs: Vital Signs Temperature 98.2 F 12/31/16 12:06 Pulse Rate 99 H 12/31/16 12:06 Respiratory Rate 18 12/31/16 12:06 Blood Pressure 240/114 12/31/16 12:06 O2 Sat by Pulse Oximetry 100 12/31/16 11:50 Course - Reevaluation(s) Reevaluation #1: Advised patient of need for hospitalization given her cardiac problems - Consultations Consultation #1: discused with hospitalist service who will admit for further treatment and evaluation Results - Labs CBC & BMP: 12/31/16 12:17 12/31/16 12:17 Labs: I reviewed the laboratory noted the bump in troponin and infected urine. - Impressions EKG: Sinus rhythm at 83 with normal AK interval and QRS duration. Nonspecific ST changes. No acute injury pattern noted. - Diagnostic Findings Procedure: Chest x-ray: image reviewed by me, report reviewed by me (No acute disease), CT: image reviewed by me, report reviewed by me (No acute injury microvascular ischemia noted) Disposition Clinical Impression: Cardiac syncope, Abnormal cardiac enzymes Case discussed with: patient, patient's family Disposition: Still a Patient Condition: Guarded Time of Disposition: 15:00
[2016-12-31 12:46] LABS: PT Patient Result 10.8 SECS
[2016-12-31 12:47] LABS: Apearance,Urine CLEAR (Clear); Bacteria,Urine Occasional /HPF (Few); Bilirubin,Urine Negative (Negative); Blood, Urine Small mg/dL (Negative); Glucose,Urine (UA) Negative (Negative); Hyaline Casts,Urine 1 /LPF (0-3); Ketones,Urine Negative (Negative); Mucus,Urine Occasional /LPF (Occasional); Nitrite,Urine Negative (Negative); Protein,Urine 30 MG/DL; RBC,Urine 2 /HPF (0-4); Squamous Epithelial Cell,Urine Occasional /HPF (0-10); Urine Color Yellow (Yellow); Urine Specific Gravity 1.006 (1.001-1.035); Urine Urobilinogen < 2.0 EU/DL (0.2-1.0); WBC,Urine 13 /HPF (0-6)
--- NOTE | 2016-12-31 12:55 | CT Report ---
CT head/brain wo con Indication: Syncope Comparison: CT head 12/08/2016 Technique: CT of the brain was performed without administration of intravenous contrast. The CT examination was performed using one or more of the following dose reduction techniques: Automatic exposure control, adjustment of the mA and kV according to patient size, use of acute or iterative reconstruction techniques. Findings: There is no evidence of acute intracranial hemorrhage, mass, or infarction. Ventricles appear within normal limits. The basal cisterns are patent. No significant abnormality is demonstrated to involve the posterior fossa or cerebellum. Orbits and globes demonstrate no evidence of acute pathology. Bilateral cataracts are suggested. The paranasal sinuses are clear. No significant abnormality is demonstrated to involve the mastoid air cells. The calvarium and overlying soft tissues demonstrate no evidence of acute pathology. Impression: 1. No CT evidence of acute intracranial pathology. 12/31/2016 12:51 PM PROCEDURE INTERPRETED AT [facility] DEPARTMENT OF RADIOLOGY Final Report Signed by: Dr. Michael Miller
[2016-12-31 12:59] LABS: Alanine Aminotransferase 36 U/L (13-56); Albumin 3.8 G/DL (3.4-5.0); Alkaline Phosphatase 123 U/L (45-117); Aspartate Amino Transferase 17 U/L (0-37); Bilirubin,Total < 0.39 MG/DL (0.2-1.0); Blood Urea Nitrogen 12 MG/DL (7-18); Calcium 9.6 MG/DL (8.5-10.1); Glucose 100 MG/DL (74-106); Osmolality,Calculated 282.1 MOS/KG (273-304); Potassium 3.6 MMOL/L (3.5-5.1); Sodium 142 MMOL/L (136-145); Total Protein 8.3 G/DL (6.4-8.3)
[2016-12-31 13:00] LABS: Troponin I Only 0.214 NG/ML (0.00-0.045)
[2016-12-31 13:09] LABS: Barbiturates Screen,Urine Negative (Negative); Benzodiazepines Screen,Urine Negative (Negative); Cannabinoid Screen,Urine Negative (Negative); Opiate Screen,Urine Negative (Negative); Phencyclidine Screen,Urine Negative (Negative)
--- NOTE | 2016-12-31 13:17 | XRay Report ---
Exam: XR chest 1V portable Date: 12/31/2016 12:37 PM Indication: Shortness of breath Comparison: 12/21/2016 Technical: AP portable Findings: The heart is slightly accentuated. No obvious infiltrate or effusion. Mediastinum and bony structures are otherwise intact. Impression: 1. No obvious acute cardiopulmonary pathology PROCEDURE INTERPRETED AT [facility] DEPARTMENT OF RADIOLOGY Final Report Signed by: Dr. Harvinder Monroy
--- NOTE | 2016-12-31 16:07 | Hospitalist History & Physical ---
Assessment and Plan (1) Syncopal episodes Status: Acute Assessment and plan: Pt experienced syncopal episode. Admit to telemetry. Cardiac monitoring. Neuro monitoring. CXR negative. Head CT negative. Orthostatic vital signs. Consult cardiology. IV hydration. Current Visit: Yes (2) UTI (urinary tract infection) Status: Acute Assessment and plan: Urine culture pending. Start patient on IV antibiotic (Zosyn). IVF hydration Current Visit: No (3) Elevated troponin Status: Acute Assessment and plan: Troponin is elevated today however it is decreased from last admission. Pt. is not having any chest pain, shortness of breath. Labs are unremarkable. Will cycle enzymes to monitor. Current Visit: No (4) Cerebrovascular accident Status: Chronic Assessment and plan: Pt is s/p CVA on December 05. CT showed no acute process today. Consult PT/OT to continue pt's daily exercises Current Visit: No (5) Left-sided weakness Status: Chronic Assessment and plan: Residual of recent stroke. Consult PT/OT Current Visit: No History of Present Illness Chief complaint: syncopal episode History of present illness: Ms. Sprague is a 56 year old black female with a history of recent CVA, htn, dyslipidemia, depression, and anxiety that presented to the ED today after experiencing a syncopal episode at home. Patient states that she had a sharp pain over her right eye initially. The patient then got up and went to the bathroom. The patient had a syncopal episode after she stood up post void. Patient states that during the episode she had blurred vision but denied chest pain, shortness of breath, nausea, vomiting, or tinnitus. The patient did report that she had a severe headache for the last 2 days ceased after this syncopal episode. Patient stated that she did not lose consciousness or fall but was alarmed so she came in for further evaluation. Patient's daughter is present at bedside and confirms. She also states that patient has been dizzy for the last 2 mornings after taking blood pressure medications. The patient is status post stroke on December 05. Patient has been seen twice in the ED since her stroke for concerns with elevated blood pressure. On examination today, the patient has weakness to lower extremity but paresis to left upper extremity. This has not worsened since her stroke diagnosis. CT of the head he reveals no acute abnormality. Patient's troponin was elevated however it was lower than last reported troponin. UA does reveal UTI. Pt. is hypertensive. Patient's case has been discussed with Dr. Iyer and Dr. Meredith. Patient will be admitted to the hospitalist service for further evaluation and treatment. Home Medications Medication Instructions Recorded Confirmed Type Atorvastatin [Lipitor] 40 mg PO BEDTIME #30 tablet 12/10/16 12/31/16 Rx Lisinopril [Prinivil] 20 mg PO DAILY #30 tablet 12/10/16 12/31/16 Rx Metoprolol Tartrate Tab [Lopressor 50 mg PO BID #60 tablet 12/10/16 12/31/16 Rx Tab] Zaleplon [Sonata] 5 mg PO BEDTIME PRN #30 capsule 12/10/16 12/31/16 Rx amLODIPine [Norvasc] 10 mg PO DAILY #30 tablet 12/10/16 12/31/16 Rx hydrALAZINE TAB [Apresoline Tab] 25 mg PO TID #90 tablet 12/10/16 12/31/16 Rx Aspirin EC Tab 325 mg PO DAILY 12/31/16 12/31/16 History Allergies Allergy/AdvReac Type Severity Reaction Status Date / Time No Known Allergies Allergy Verified 12/06/16 02:07 Medical,Surgical,& Family Hx - Medical History Cardio: History of: Cerebrovascular Disease, Hypertension Psychological: History of: Anxiety Disorders, Depression Neurology: History of: Cerebrovascular Accident No history of: Brain Aneurysm, Cerebral Hemorrhage Endocrine: History of: Dyslipidemia Respiratory: History of: Asthma Musculoskeletal: No history of: Amputation - Surgical History Neurologic Surgeries: Patient denies: Brain Aneurysm, Cerebral Hemorrhage Abdominal Surgeries: Patient denies: Abdominal Surgery Reproductive Surgeries: Patient denies;: Gynecologic Surgery, Hysterectomy - Family History Family History: Reports;: Family Cancer, Family Heart Disease (father ([place])), Family Hypertension - Social History Smoking Status: Former smoker Lives With:: Children Functional capacity: uses cane/walker - Constitutional Constitutional: Present: weakness. Absent: chills, fever(s) - EENT Eyes: Present: blurry vision Ears: Absent: decreased hearing - Cardiovascular Cardiovascular: Absent: chest pain at rest, dyspnea, edema, radiating jaw, neck or arm pain - Respiratory Respiratory: Absent: cough, dyspnea - Gastrointestinal Gastrointestinal: Absent: abdominal pain, nausea, vomiting - Genitourinary Genitourinary: Absent: hematuria - Musculoskeletal Musculoskeletal: Present: limited range of motion. Absent: back pain - Neurological Neurological: Present: abnormal speech (pt stutters (as a result of CVA in November it has worsened - no changes from norm noted today)), dizziness. Absent: confusion, frequent falls, numbness, paresthesias - Psychiatric Psychiatric: Present: anxiety Exam - Constitutional Vitals: Period Temp Pulse Resp BP Sys/Garza Pulse Ox Last 24 Hr 98.2 F-98.2 F 99-99 18-18 240-240/114-114 100 General appearance: no acute distress, over weight - Head Head exam: Present: normal inspection, normocephalic - Eye Eye exam: Present: EOMI. Absent: scleral icterus Pupils: Present: CARMELITA - Respiratory Respiratory exam: Present: clear to auscultation bilaterally. Absent: wheezes - Cardiovascular Cardiovascular exam: Present: tachycardia - GI/Abdominal GI/Abdominal exam: Present: normal bowel sounds, soft. Absent: tenderness - Extremities Exam Extremities exam: Present: normal capillary refill, other (weakness noted to left upper extremity. ). Absent: full ROM, edema - Back Exam Back exam: Present: normal inspection - Neurological Exam Neurological exam: Present: alert, oriented X3, motor sensory deficit - Expanded Neurological Exam Patient oriented to: Present: person, place, time Cranial nerves: EOM's intact: Normal Coma Scale Eye Opening: Spontaneous Coma Scale Motor Response: Obeys Commands Coma Scale Verbal Response: Oriented Coma Scale Total: 15 - Psychiatric Psychiatric exam: Present: normal affect, normal mood - Skin Skin exam: Present: normal color, warm, dry Results - Labs CBC & BMP: 12/31/16 12:17 12/31/16 12:17 Lab Results: I have reviewed the past 24 hour labs
[2016-12-31] MEDS ORDERED: SODIUM CHLORIDE 0.9% 1,000 ML IV SCH (16:30)
[2016-12-31] MEDS ORDERED: LABETALOL 20 MG/4 ML SYRINGE IV PRN (18:08)
--- NOTE | 2016-12-31 18:12 | Cardiology Consult Note ---
Assessment and Plan (1) Elevated troponin Status: Acute Assessment and plan: 56-year-old black female, with recent ischemic CVA, intermittent hypertension, recurrent presyncope/dizziness, borderline elevated cardiac biomarkers. -Rule out secondary hypertension. This seems to be intermittent, was extremely high earlier today. Check fractionated plasma metanephrines, renal Doppler. -Resume aspirin. Continue statin. -Switch metoprolol to labetalol 100 mg twice daily. For now, also use IV labetalol as needed for systolic blood pressure greater than 180. -Hold hydralazine. Continue lisinopril. -Keep on telemetry. -Troponin elevation is likely due to demand ischemia due to extreme elevated blood pressure. She had no systolic dysfunction or obstructive CAD on recent evaluation. -She will need sleep evaluation Current Visit: No (2) Syncopal episodes Status: Acute Current Visit: Yes (3) UTI (urinary tract infection) Status: Acute Current Visit: No (4) Cerebrovascular accident Status: Chronic Current Visit: No (5) Dyslipidemia Status: Chronic Current Visit: No (6) Former tobacco use Status: Chronic Current Visit: No (7) Left-sided weakness Status: Chronic Current Visit: No (8) Malignant hypertension Status: Chronic Current Visit: No History of Present Illness - Data of Consult Patient: known to practice within the last 3 years Consult date: 12/31/16 - Consult Narrative Reason for consult: pos trop History of present illness: Ms. Sprague is a 56 year old BF, with history of recent CVA a month ago, ischemic of the basal ganglia, with persistent left-sided weakness. History of smoking, hypertension. On her past admission, cardiology, Dr. Waldrop saw her for borderline troponin elevation, echo showed preserved systolic function, stress test showed no obstructive CAD. Carotid MRA was normal. Today, she was feeling fine in the morning, but her friend checked her blood pressure, which was 140. Then, she developed dizziness lightheadedness and came to the emergency room for evaluation. She is not sure if she passed out. The blood pressure was 240/110 in the emergency room. Head CT showed no new acute lesions, the blood pressure is now 180, after she got meclizine and some IV fluids. She is feeling better now. She denies any chest pain shortness of breath leg swelling. She states she was compliant with her medications, she quit smoking. EKG showed nonspecific report changes. Troponin is again borderline. Normal renal function, no significant electrolyte issues, tox screen negative. She has an infected urine, no fever. CC: Claudio Meredith Jr., MD - Home Medications and Allergies Home Medications: Home Medications Medication Instructions Recorded Confirmed Type Atorvastatin [Lipitor] 40 mg PO BEDTIME #30 tablet 12/10/16 12/31/16 Rx Lisinopril [Prinivil] 20 mg PO DAILY #30 tablet 12/10/16 12/31/16 Rx Metoprolol Tartrate Tab [Lopressor 50 mg PO BID #60 tablet 12/10/16 12/31/16 Rx Tab] Zaleplon [Sonata] 5 mg PO BEDTIME PRN #30 capsule 12/10/16 12/31/16 Rx amLODIPine [Norvasc] 10 mg PO DAILY #30 tablet 12/10/16 12/31/16 Rx hydrALAZINE TAB [Apresoline Tab] 25 mg PO TID #90 tablet 12/10/16 12/31/16 Rx Aspirin EC Tab 325 mg PO DAILY 12/31/16 12/31/16 History Allergies/Adverse Reactions: Allergies Allergy/AdvReac Type Severity Reaction Status Date / Time No Known Allergies Allergy Verified 12/06/16 02:07 12 point system: reviewed and no additional remarkable complaints except as stated Medical,Surgical,& Family Hx - Medical History Cardio: History of: Cerebrovascular Disease, Hypertension Psychological: History of: Anxiety Disorders, Depression Neurology: History of: Cerebrovascular Accident No history of: Brain Aneurysm, Cerebral Hemorrhage Endocrine: History of: Dyslipidemia Respiratory: History of: Asthma Musculoskeletal: No history of: Amputation - Surgical History Neurologic Surgeries: Patient denies: Brain Aneurysm, Cerebral Hemorrhage Abdominal Surgeries: Patient denies: Abdominal Surgery Reproductive Surgeries: Patient denies;: Gynecologic Surgery, Hysterectomy - Family History Family History: Reports;: Family Cancer, Family Heart Disease (father (ID)), Family Hypertension - Social History Smoking Status: Former smoker Physical Examination Vital Signs Temp Pulse Resp BP Pulse Ox 98.2 F 99 H 18 240/114 100 12/31/16 11:50 12/31/16 11:50 12/31/16 11:50 12/31/16 11:50 12/31/16 11:50 General: Present: Appears Well, No Apparent Distress Neck: Present: No JVD/HJR, No Bruit Cardiac: Present: Regular Rate, Regular Rhythm, S1/S2 Lungs: Present: Clear Ascult./Percussion Abdomen: Present: Soft, Active Bowel Sounds Musculoskeletal: Present: No Fluid Collection, No Pain Extremities: Present: No Clubbing, No Cyanosis, No Edema Result/EKG - Labs CBC & BMP: 12/31/16 12:17 12/31/16 12:17 Lab Results: I have reviewed the past 24 hour labs Labs: Laboratory Results - last 24 hr 12/31/16 12/31/16 12/31/16 12:17 12:17 12:17 WBC 10.1 RBC 5.16 Hgb 13.7 Hct 41.6 MCV 80.6 L MCH 27 MCHC 32.9 RDW 13.2 Plt Count 420 H MPV 10.3 Neut % (Auto) 53.8 Lymph % (Auto) 34.5 [place] % (Auto) 6.9 Eos % (Auto) 4.1 Baso % (Auto) 0.4 Neut # (Auto) 5.4 Lymph # (Auto) 3.5 [place] # (Auto) 0.7 Eos # (Auto) 0.4 Baso # (Auto) 0.0 Immature Gran % 0.3 Nucleated RBC % 0.0 Immature Gran # 0.03 Nucleated RBCs # 0.00 INR 1.0 PT Patient/Control Mix 10.8 Sodium 142 Potassium 3.6 Chloride 107 Carbon Dioxide 26 Anion Gap 12.6 BUN 12 Creatinine 0.70 GFR Calculation 117 BUN/Creatinine Ratio 17.00 Glucose 100 Calculated Osmolality 282.1 Calcium 9.6 Total Bilirubin < 0.39 AST 17 ALT 36 Alkaline Phosphatase 123 H Total Creatine Kinase 78 CK-MB (CK-2) < 1.0 Troponin I 0.214 H B-Natriuretic Peptide Total Protein 8.3 Albumin 3.8 Globulin 4.5 H Albumin/Globulin Ratio 0.8 L Urine Color Urine Appearance Urine pH Ur Specific [place] Urine Protein Urine Glucose (UA) Urine Ketones Urine Blood Urine Nitrate Urine Bilirubin Urine Urobilinogen Urine Leukocytes Urine RBC Urine WBC Ur Squamous Epith Cells Urine Bacteria Hyaline Casts Urine Mucus Ur Culture Indicated? Urine Opiates Screen Ur Barbiturates Screen Ur Phencyclidine Scrn U Amphetamine/Methamph U Benzodiazepines Scrn U Cocaine Metab Screen U Cannabinoids Screen 12/31/16 12/31/16 12/31/16 12:17 12:35 12:42 WBC RBC Hgb Hct MCV MCH MCHC RDW Plt Count MPV Neut % (Auto) Lymph % (Auto) [place] % (Auto) Eos % (Auto) Baso % (Auto) Neut # (Auto) Lymph # (Auto) [place] # (Auto) Eos # (Auto) Baso # (Auto) Immature Gran % Nucleated RBC % Immature Gran # Nucleated RBCs # INR PT Patient/Control Mix Sodium Potassium Chloride Carbon Dioxide Anion Gap BUN Creatinine GFR Calculation BUN/Creatinine Ratio Glucose Calculated Osmolality Calcium Total Bilirubin AST ALT Alkaline Phosphatase Total Creatine Kinase CK-MB (CK-2) Troponin I B-Natriuretic Peptide 50 Total Protein Albumin Globulin Albumin/Globulin Ratio Urine Color Yellow Urine Appearance Clear Urine pH 7.0 Ur Specific [place] 1.006 Urine Protein 30 Urine Glucose (UA) Negative Urine Ketones Negative Urine Blood Small Urine Nitrate Negative Urine Bilirubin Negative Urine Urobilinogen < 2.0 H Urine Leukocytes Large H Urine RBC 2 Urine WBC 13 Ur Squamous Epith Cells Occasional Urine Bacteria Occasional Hyaline Casts 1 Urine Mucus Occasional Ur Culture Indicated? Results to follow Urine Opiates Screen Negative Ur Barbiturates Screen Negative Ur Phencyclidine Scrn Negative U Amphetamine/Methamph Negative U Benzodiazepines Scrn Negative U Cocaine Metab Screen Negative U Cannabinoids Screen Negative 12/31/16 15:08 WBC RBC Hgb Hct MCV MCH MCHC RDW Plt Count MPV Neut % (Auto) Lymph % (Auto) [place] % (Auto) Eos % (Auto) Baso % (Auto) Neut # (Auto) Lymph # (Auto) [place] # (Auto) Eos # (Auto) Baso # (Auto) Immature Gran % Nucleated RBC % Immature Gran # Nucleated RBCs # INR PT Patient/Control Mix Sodium Potassium Chloride Carbon Dioxide Anion Gap BUN Creatinine GFR Calculation BUN/Creatinine Ratio Glucose Calculated Osmolality Calcium Total Bilirubin AST ALT Alkaline Phosphatase Total Creatine Kinase 74 CK-MB (CK-2) 1.3 Troponin I 0.220 H B-Natriuretic Peptide Total Protein Albumin Globulin Albumin/Globulin Ratio Urine Color Urine Appearance Urine pH Ur Specific [place] Urine Protein Urine Glucose (UA) Urine Ketones Urine Blood Urine Nitrate Urine Bilirubin Urine Urobilinogen Urine Leukocytes Urine RBC Urine WBC Ur Squamous Epith Cells Urine Bacteria Hyaline Casts Urine Mucus Ur Culture Indicated? Urine Opiates Screen Ur Barbiturates Screen Ur Phencyclidine Scrn U Amphetamine/Methamph U Benzodiazepines Scrn U Cocaine Metab Screen U Cannabinoids Screen - EKG EKG results: interpreted by me
[2016-12-31 21:04] LABS: Troponin I Only 0.223 NG/ML (0.00-0.045)
[2016-12-31] MEDS: ATORVASTATIN 40 MG TABLET PO SCH (21:28)
[2016-12-31] MEDS: LABETALOL 100 MG TABLET PO SCH (21:28)
[2016-12-31] MEDS: LEVOFLOXACIN INJ 500 MG in PREMIX 1 EACH IV SCH (21:36)
[2016-12-31] MEDS: ZALEPLON 5 MG CAPSULE PO PRN (23:01)
[2016-12-31] MEDS: PIPERACILLIN/TAZOBACTAM 3,375 MG in SODIUM CHLORIDE 0.9% 100 ML IV SCH (23:02)
[2017-01-01 05:46] LABS: Basophils % 0.4 % (0.0-0.8); Eosinophils # 0.3 10*3/uL (0.0-0.87); Eosinophils % 3.6 % (0.00-10.9); Hematocrit 34.7 VOL% (35.7-47.0); Immature Granulocytes % 0.2 %; Immature Granulocytes Absolute 0.02 #; Lymphocytes # 3.4 10*3/uL (1.4-4.0); Lymphocytes % 39.6 % (21.3-54.2); Mean Corpuscular HGB Conc 31.7 GM/DL (32-36); Mean Corpuscular Hemoglobin 26 PG (27-34); Mean Corpuscular Volume 82.4 FL (87-102); Mean Platelet Volume 10.6 FL (9.6-12.0); Monocytes # 0.7 10*3/uL (0.11-0.8); Neutrophils # 4.1 10*3/uL (1.4-7.4); Neutrophils % 48.2 % (38.7-73.9); Platelet Count 341 T/CUMM (130-400); Red Blood Count 4.21 MC/CUMM (3.8-5.5); Red Cell Distribution Width 13.3 % (9.3-17.3); White Blood Count 8.5 T/CUMM (4-12)
[2017-01-01 06:23] LABS: Troponin I Only 0.213 NG/ML (0.00-0.045)
[2017-01-01] MEDS: PIPERACILLIN/TAZOBACTAM 3,375 MG in SODIUM CHLORIDE 0.9% 100 ML IV SCH (06:30)
[2017-01-01 06:36] LABS: Calcium 8.8 MG/DL (8.5-10.1); Magnesium 2.1 MG/DL (1.8-2.4); Potassium 3.9 MMOL/L (3.5-5.1); Risk Ratio 2.47; Thyroid Stimulating Hormone 0.889 uIU/ml (0.358-3.74); VLDL CHOLESTEROL 15.8 MG/DL
[2017-01-01] MEDS: LABETALOL 100 MG TABLET PO SCH ×2 (09:17→21:18)
[2017-01-01] MEDS: ASPIRIN EC 325 MG TABLET PO SCH (09:17)
[2017-01-01] MEDS: PANTOPRAZOLE 40 MG TABLET PO SCH (09:17)
[2017-01-01] MEDS: amLODIPine 10 MG TABLET PO SCH (09:17)
[2017-01-01] MEDS: LISINOPRIL 20 MG TABLET PO SCH (09:18)
--- NOTE | 2017-01-01 11:25 | Ultrasound Report ---
Renal Doppler. Indication: Hypertension. Grayscale, color-flow, and spectral analysis performed and interpreted. No previous study. The kidneys are normal in size. The right kidney measures 11.5 x 4.8 x 4.8 cm. The left kidney measures 10.7 x 4.9 x 5.3 cm. The cortical thickness is normal. The parenchymal echogenicity is normal. No hydronephrosis. No cystic or solid masses. Doppler findings: Aorta: Peak systolic velocity: 50 cm/s Resistive index: 1.00 Right renal artery: Peak systolic velocity: 52 cm/s Resistive index: 0.56 Left renal artery: Peak systolic velocity: 115 cm/s. Resistive index: 0.59. Right RAR-1.0 Left RAR-2.3 Renal waveforms are noncontributory. Impression: While there is Doppler asymmetry between the renal arteries, with the left peak systolic velocity and RAR being elevated compared to the right, these values do not meet criteria for 60% or greater stenosis. (Greater than 150 cm/s, and greater than 3.5.) PROCEDURE INTERPRETED AT [facility] DEPARTMENT OF RADIOLOGY Final Report Signed by: Dr. Harriet Lu
--- NOTE | 2017-01-01 12:02 | EKG Report ---
Stationary ECG Study [facility] ER Test Date: 12/31/2016 1:14:30 PM Pat Name: UMA AYERS Department: Room: 282 Gender: F Machine Sorter: : 1960 Requested by: Victor Manuel Ayala Order Number: [id number] Reading MD: SHWETA BAUTISTA Intervals [place] Rate: 83 P: 61 NC: 184 QRS: 20 QRSD: 95 T: 127 QT: 359 QTc: 398 Interpretive Statements SINUS RHYTHM LEFT VENTRICULAR HYPERTROPHY AND ST-T CHANGE Electronically Signed On 01-01-17 13:34:48 CDT by SHWETA BAUTISTA [email or web address]
--- NOTE | 2017-01-01 13:09 | Cardiology Progress Note ---
Assessment and Plan (1) Elevated troponin Status: Acute Assessment and plan: 56-year-old black female, with recent ischemic CVA, intermittent hypertension, recurrent presyncope/dizziness, borderline elevated cardiac biomarkers. Hypertension appears to be intermittent, malignant. -Rule out secondary hypertension. Renal ultrasound did not show significant HOLLY. Fractionated plasma metanephrines pending. TFTs were normal. -Resumed aspirin. Continue statin. -Cont labetalol po -Continue lisinopril. -Troponin elevation is likely due to demand ischemia due to extreme elevated blood pressure. She had no systolic dysfunction or obstructive CAD on recent evaluation. -She will need sleep evaluation Current Visit: No (2) Syncopal episodes Status: Acute Current Visit: Yes (3) UTI (urinary tract infection) Status: Acute Current Visit: No (4) Cerebrovascular accident Status: Chronic Current Visit: No (5) Dyslipidemia Status: Chronic Current Visit: No (6) Former tobacco use Status: Chronic Current Visit: No (7) Left-sided weakness Status: Chronic Current Visit: No (8) Malignant hypertension Status: Chronic Current Visit: No Cardiology - PN: Subj Interval history: Her blood pressure is much better controlled. She is feeling fine. No chest pain. Troponin was only mildly elevated. No significant arrhythmia on telemetry. Exam (Progress Note) - Constitutional Vitals: Period Temp Pulse Resp BP Sys/Garza Pulse Ox Last 24 Hr 96.6 F-98.5 F 48-83 18-20 104-180/54-85 94-100 General appearance: normal weight, over weight - Head Head exam: Present: normal inspection, normocephalic - Eye Eye exam: Absent: conjunctival injection, scleral icterus Pupils: Absent: dilated - ENT ENT exam: Present: normal external ear exam - Neck Neck exam: Present: normal inspection - Respiratory Respiratory exam: Present: clear to auscultation bilaterally. Absent: accessory muscle use - Cardiovascular Cardiovascular exam: Present: regular rate and rhythm, systolic murmur - GI/Abdominal GI/Abdominal exam: Present: normal bowel sounds. Absent: distended - Extremities Exam Extremities exam: Present: normal inspection, normal capillary refill. Absent: edema - Back Exam Back exam: Present: normal inspection - Neurological Exam Neurological exam: Present: alert, oriented X3 - Psychiatric Psychiatric exam: Present: normal affect, normal mood - Skin Skin exam: Present: normal color, warm. Absent: cyanosis Result/EKG - Labs CBC & BMP: 01/01/17 05:05 01/01/17 05:05 Lab Results: I have reviewed the past 24 hour labs Labs: Laboratory Results - last 24 hr 12/31/16 12/31/16 12/31/16 12:17 12:17 12:35 WBC RBC Hgb Hct MCV MCH MCHC RDW Plt Count MPV Neut % (Auto) Lymph % (Auto) [place] % (Auto) Eos % (Auto) Baso % (Auto) Neut # (Auto) Lymph # (Auto) [place] # (Auto) Eos # (Auto) Baso # (Auto) Immature Gran % Nucleated RBC % Immature Gran # Nucleated RBCs # INR 1.0 PT Patient/Control Mix 10.8 Sodium Potassium Chloride Carbon Dioxide Anion Gap BUN Creatinine GFR Calculation BUN/Creatinine Ratio Glucose Hemoglobin A1c Calculated Osmolality Calcium Magnesium Total Creatine Kinase CK-MB (CK-2) Troponin I B-Natriuretic Peptide 50 Triglycerides Cholesterol LDL Cholesterol VLDL Cholesterol HDL Cholesterol Heart Disease Risk Ratio Free T4 TSH 3rd Generation Urine Color Yellow Urine Appearance Clear Urine pH 7.0 Ur Specific [place] 1.006 Urine Protein 30 Urine Glucose (UA) Negative Urine Ketones Negative Urine Blood Small Urine Nitrate Negative Urine Bilirubin Negative Urine Urobilinogen < 2.0 H Urine Leukocytes Large H Urine RBC 2 Urine WBC 13 Ur Squamous Epith Cells Occasional Urine Bacteria Occasional Hyaline Casts 1 Urine Mucus Occasional Ur Culture Indicated? Results to follow Urine Opiates Screen Ur Barbiturates Screen Ur Phencyclidine Scrn U Amphetamine/Methamph U Benzodiazepines Scrn U Cocaine Metab Screen U Cannabinoids Screen 12/31/16 12/31/16 12/31/16 12:42 15:08 19:51 WBC RBC Hgb Hct MCV MCH MCHC RDW Plt Count MPV Neut % (Auto) Lymph % (Auto) [place] % (Auto) Eos % (Auto) Baso % (Auto) Neut # (Auto) Lymph # (Auto) [place] # (Auto) Eos # (Auto) Baso # (Auto) Immature Gran % Nucleated RBC % Immature Gran # Nucleated RBCs # INR PT Patient/Control Mix Sodium Potassium Chloride Carbon Dioxide Anion Gap BUN Creatinine GFR Calculation BUN/Creatinine Ratio Glucose Hemoglobin A1c Calculated Osmolality Calcium Magnesium Total Creatine Kinase 74 73 CK-MB (CK-2) 1.3 1.3 Troponin I 0.220 H 0.223 H B-Natriuretic Peptide Triglycerides Cholesterol LDL Cholesterol VLDL Cholesterol HDL Cholesterol Heart Disease Risk Ratio Free T4 TSH 3rd Generation Urine Color Urine Appearance Urine pH Ur Specific [place] Urine Protein Urine Glucose (UA) Urine Ketones Urine Blood Urine Nitrate Urine Bilirubin Urine Urobilinogen Urine Leukocytes Urine RBC Urine WBC Ur Squamous Epith Cells Urine Bacteria Hyaline Casts Urine Mucus Ur Culture Indicated? Urine Opiates Screen Negative Ur Barbiturates Screen Negative Ur Phencyclidine Scrn Negative U Amphetamine/Methamph Negative U Benzodiazepines Scrn Negative U Cocaine Metab Screen Negative U Cannabinoids Screen Negative 01/01/17 01/01/17 01/01/17 05:05 05:05 05:05 WBC 8.5 RBC 4.21 Hgb 11.0 L D Hct 34.7 L MCV 82.4 L MCH 26 L MCHC 31.7 L RDW 13.3 Plt Count 341 MPV 10.6 Neut % (Auto) 48.2 Lymph % (Auto) 39.6 [place] % (Auto) 8.0 Eos % (Auto) 3.6 Baso % (Auto) 0.4 Neut # (Auto) 4.1 Lymph # (Auto) 3.4 [place] # (Auto) 0.7 Eos # (Auto) 0.3 Baso # (Auto) 0.0 Immature Gran % 0.2 Nucleated RBC % 0.0 Immature Gran # 0.02 Nucleated RBCs # 0.00 INR PT Patient/Control Mix Sodium 143 Potassium 3.9 Chloride 108 H Carbon Dioxide 24 Anion Gap 14.9 BUN 10 Creatinine 0.70 GFR Calculation 117 BUN/Creatinine Ratio 14.00 Glucose 88 Hemoglobin A1c Calculated Osmolality 282.0 Calcium 8.8 Magnesium 2.1 Total Creatine Kinase 60 CK-MB (CK-2) 2.0 Troponin I 0.213 H B-Natriuretic Peptide Triglycerides 79 Cholesterol 106 LDL Cholesterol 45.0 VLDL Cholesterol 15.8 HDL Cholesterol 43 Heart Disease Risk Ratio 2.47 Free T4 1.30 TSH 3rd Generation 0.889 Urine Color Urine Appearance Urine pH Ur Specific [place] Urine Protein Urine Glucose (UA) Urine Ketones Urine Blood Urine Nitrate Urine Bilirubin Urine Urobilinogen Urine Leukocytes Urine RBC Urine WBC Ur Squamous Epith Cells Urine Bacteria Hyaline Casts Urine Mucus Ur Culture Indicated? Urine Opiates Screen Ur Barbiturates Screen Ur Phencyclidine Scrn U Amphetamine/Methamph U Benzodiazepines Scrn U Cocaine Metab Screen U Cannabinoids Screen 01/01/17 05:05 WBC RBC Hgb Hct MCV MCH MCHC RDW Plt Count MPV Neut % (Auto) Lymph % (Auto) [place] % (Auto) Eos % (Auto) Baso % (Auto) Neut # (Auto) Lymph # (Auto) [place] # (Auto) Eos # (Auto) Baso # (Auto) Immature Gran % Nucleated RBC % Immature Gran # Nucleated RBCs # INR PT Patient/Control Mix Sodium Potassium Chloride Carbon Dioxide Anion Gap BUN Creatinine GFR Calculation BUN/Creatinine Ratio Glucose Hemoglobin A1c 6.0 Calculated Osmolality Calcium Magnesium Total Creatine Kinase CK-MB (CK-2) Troponin I B-Natriuretic Peptide Triglycerides Cholesterol LDL Cholesterol VLDL Cholesterol HDL Cholesterol Heart Disease Risk Ratio Free T4 TSH 3rd Generation Urine Color Urine Appearance Urine pH Ur Specific [place] Urine Protein Urine Glucose (UA) Urine Ketones Urine Blood Urine Nitrate Urine Bilirubin Urine Urobilinogen Urine Leukocytes Urine RBC Urine WBC Ur Squamous Epith Cells Urine Bacteria Hyaline Casts Urine Mucus Ur Culture Indicated? Urine Opiates Screen Ur Barbiturates Screen Ur Phencyclidine Scrn U Amphetamine/Methamph U Benzodiazepines Scrn U Cocaine Metab Screen U Cannabinoids Screen - EKG EKG results: interpreted by me Quality Measures - Stroke Presenting Symptoms: Left hemiparesis
--- NOTE | 2017-01-01 13:36 | Hospitalist Progress Note ---
Assessment and Plan (1) UTI (urinary tract infection) Status: Acute Assessment and plan: The patient continues on antibiotic with Levaquin and I am going to add ampicillin for gram-positive cocci seen in preliminary blood culture. The patient continues on diuresis and Dr. Gambino was evaluating her cardiovascular status and hypertension. Current Visit: No Qualifiers: Urinary tract infection type: acute cystitis Hematuria presence: without hematuria Qualified Code(s): N30.00 - Acute cystitis without hematuria (2) Acute dyspnea Status: Suspected Current Visit: No Hospitalist: Subjective Interval history: This patient with recent stroke this to the hospital with shortness of breath and hypertension. She is improving with diuresis. We are treating her for urinary tract infection and preliminary culture reveals gram-positive cocci. This is likely enterococcus and the patient will be started on ampicillin. Exam - Constitutional Vitals: Period Temp Pulse Resp BP Sys/Garza Pulse Ox Last 24 Hr 96.6 F-98.5 F 48-83 18-20 104-180/54-85 94-100 Exam: Constitutional System: Mild distress. No tremulousness. The patient favors right lateral decubitus position Head: Normocephalic, atraumatic. Ears, Nose and Throat System: No evidence of Otitis or Mastoiditis. No epistaxis or discharge Eyes System: Pupils equal, round, and reactive. Extraocular muscles intact. Neck: Supple, without adenopathy, No jugular venous distention. No thyromegaly , neck mass, or prior surgery apparent. Respiratory System: Chest few rales in bases to auscultation. Cardiovascular System: Heart with regular rate and rhythm. No murmur. GI System: Abdomen soft, nontender. Normo active bowel sounds present. Musculoskeletal System: limbs with trace pedal edema. Full distal pulses. Neurological System: No discernable sensory deficit. No aphasia Psychiatric System: Conversation is rational Results - Labs CBC & BMP: 01/01/17 05:05 01/01/17 05:05 Lab Results: I have reviewed the past 24 hour labs Quality Measures - Stroke Presenting Symptoms: Left hemiparesis
[2017-01-01] MEDS: AMPICILLIN INJ 500 MG in SODIUM CHLORIDE 0.9% 100 ML IV SCH ×2 (16:21→21:19)
[2017-01-01] MEDS: ACETAMINOPHEN 325 MG TABLET PO PRN (18:13)
[2017-01-01] MEDS: ATORVASTATIN 40 MG TABLET PO SCH (21:18)
[2017-01-01] MEDS: ZALEPLON 5 MG CAPSULE PO PRN (21:18)
[2017-01-01] MEDS: LEVOFLOXACIN INJ 500 MG in PREMIX 1 EACH IV SCH (22:03)
[2017-01-02] MEDS: AMPICILLIN INJ 500 MG in SODIUM CHLORIDE 0.9% 100 ML IV SCH ×3 (02:19→14:02)
[2017-01-02 05:56] LABS: Basophils % 0.4 % (0.0-0.8); Eosinophils # 0.3 10*3/uL (0.0-0.87); Eosinophils % 3.8 % (0.00-10.9); Hematocrit 36.2 VOL% (35.7-47.0); Hemoglobin 11.8 GM/DL (12.0-16.0); Immature Granulocytes % 0.1 %; Immature Granulocytes Absolute 0.01 #; Lymphocytes # 3.5 10*3/uL (1.4-4.0); Lymphocytes % 42.1 % (21.3-54.2); Mean Corpuscular HGB Conc 32.6 GM/DL (32-36); Mean Corpuscular Hemoglobin 27 PG (27-34); Mean Corpuscular Volume 81.9 FL (87-102); Mean Platelet Volume 10.7 FL (9.6-12.0); Monocytes # 0.7 10*3/uL (0.11-0.8); Monocytes % 8.3 % (1.7-12.7); Neutrophils # 3.8 10*3/uL (1.4-7.4); Neutrophils % 45.3 % (38.7-73.9); Platelet Count 339 T/CUMM (130-400); Red Blood Count 4.42 MC/CUMM (3.8-5.5); Red Cell Distribution Width 13.4 % (9.3-17.3); White Blood Count 8.4 T/CUMM (4-12)
[2017-01-02 06:30] LABS: Magnesium 2.1 MG/DL (1.8-2.4); Osmolality,Calculated 284.8 MOS/KG (273-304); Potassium 3.5 MMOL/L (3.5-5.1)
[2017-01-02] MEDS: amLODIPine 10 MG TABLET PO SCH (08:56)
[2017-01-02] MEDS: LISINOPRIL 20 MG TABLET PO SCH (08:57)
[2017-01-02] MEDS: ASPIRIN EC 325 MG TABLET PO SCH (08:57)
[2017-01-02] MEDS: PANTOPRAZOLE 40 MG TABLET PO SCH (08:57)
[2017-01-02] MEDS: LABETALOL 100 MG TABLET PO SCH (09:27)
[2017-01-02] MEDS ORDERED: LABETALOL 200 MG TABLET PO SCH (11:29)
[2017-01-02] MEDS ORDERED: CLORAZEPATE 3.75 MG TABLET PO PRN (11:31)
--- NOTE | 2017-01-02 11:31 | Cardiology Progress Note ---
Assessment and Plan (1) Elevated troponin Status: Acute Assessment and plan: 56-year-old black female, with recent ischemic CVA, intermittent hypertension, recurrent presyncope/dizziness, borderline elevated cardiac biomarkers. Hypertension appears to be intermittent, malignant. -Rule out secondary hypertension. Renal ultrasound did not show significant HOLLY. Fractionated plasma metanephrines pending. TFTs were normal. -Resumed aspirin. Continue statin. -Cont labetalol po. Increased to 200 mg twice daily. -Continue lisinopril. -Tranxene as needed for anxiety. Plan for short-term use. -Troponin elevation is likely due to demand ischemia due to extreme elevated blood pressure. She had no systolic dysfunction or obstructive CAD on recent evaluation. -She will need sleep evaluation Current Visit: No (2) Syncopal episodes Status: Acute Current Visit: Yes (3) UTI (urinary tract infection) Status: Acute Current Visit: No Qualifiers: Urinary tract infection type: acute cystitis Hematuria presence: without hematuria Qualified Code(s): N30.00 - Acute cystitis without hematuria (4) Cerebrovascular accident Status: Chronic Current Visit: No (5) Dyslipidemia Status: Chronic Current Visit: No (6) Former tobacco use Status: Chronic Current Visit: No (7) Left-sided weakness Status: Chronic Current Visit: No (8) Malignant hypertension Status: Chronic Current Visit: No Cardiology - PN: Subj Interval history: She had another transient hypertensive episode today, was associated with anxiety and headache. Resolved. Now she is feeling better. Exam (Progress Note) - Constitutional Vitals: Period Temp Pulse Resp BP Sys/Garza Pulse Ox Last 24 Hr 96.6 F-98 F 59-83 18-20 119-203/58-101 99-100 General appearance: no acute distress, over weight - Head Head exam: Present: normal inspection, normocephalic - Eye Eye exam: Absent: conjunctival injection, periorbital swelling Pupils: Absent: dilated - ENT ENT exam: Present: normal external ear exam - Neck Neck exam: Present: normal inspection - Respiratory Respiratory exam: Present: clear to auscultation bilaterally. Absent: accessory muscle use - Cardiovascular Cardiovascular exam: Present: regular rate and rhythm. Absent: JVD - GI/Abdominal GI/Abdominal exam: Present: normal bowel sounds. Absent: distended - Extremities Exam Extremities exam: Present: normal inspection, normal capillary refill. Absent: edema - Back Exam Back exam: Present: normal inspection - Neurological Exam Neurological exam: Present: alert, oriented X3 - Psychiatric Psychiatric exam: Present: normal affect, normal mood - Skin Skin exam: Present: normal color, warm. Absent: cyanosis Result/EKG - Labs CBC & BMP: 01/02/17 04:44 01/02/17 04:44 Lab Results: I have reviewed the past 24 hour labs Labs: Laboratory Results - last 24 hr 01/02/17 01/02/17 04:44 04:44 WBC 8.4 RBC 4.42 Hgb 11.8 L Hct 36.2 MCV 81.9 L MCH 27 MCHC 32.6 RDW 13.4 Plt Count 339 MPV 10.7 Neut % (Auto) 45.3 Lymph % (Auto) 42.1 [place] % (Auto) 8.3 Eos % (Auto) 3.8 Baso % (Auto) 0.4 Neut # (Auto) 3.8 Lymph # (Auto) 3.5 [place] # (Auto) 0.7 Eos # (Auto) 0.3 Baso # (Auto) 0.0 Immature Gran % 0.1 Nucleated RBC % 0.0 Immature Gran # 0.01 Nucleated RBCs # 0.00 Sodium 144 Potassium 3.5 Chloride 107 Carbon Dioxide 25 Anion Gap 15.5 H BUN 11 Creatinine 0.80 GFR Calculation 100 BUN/Creatinine Ratio 13.00 Glucose 91 Calculated Osmolality 284.8 Calcium 9.0 Magnesium 2.1 - EKG EKG results: interpreted by in Quality Measures - Stroke Presenting Symptoms: Left hemiparesis
[2017-01-02] MEDS: ACETAMINOPHEN 325 MG TABLET PO PRN (12:03)
[2017-01-02 12:28] VITALS: BP 175/85
--- NOTE | 2017-01-02 12:50 | Discharge Summary ---
Hospital Course - Hospital Course Hospital Course: The patient was admitted to the hospital with chest discomfort. Myocardial infarction was ruled out by EKG and enzymes. 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 Myocardial infarction was ruled out by EKG and enzymes. Dr. Gambino adjusted her antihypertensive regimen and the patient is feeling better. He recommends giving her Tranxene to improve her anxiety. Urine culture is growing gram-positive cocci in the patient will be discharged home on ampicillin. On the date of discharge, chest is clear and abdomen soft. Heart has regular rate and rhythm. The patient is a former smoker and I gave 4 minutes encouragement to continue off tobacco. Total discharge time required 33 minutes. - Time spent with patient Time with patient DS: Greater than 30 minutes Diagnosis - Discharge Diagnosis (1) UTI (urinary tract infection) Status: Resolved (2) Acute dyspnea Status: Chronic Discharge Plan - Discharge Data Disposition: Disch To Home/Self Care Condition at Discharge: Stable Activity: resume usual activities as tolerated - Discharge Medications New Clorazepate [Tranxene] 3.75 mg PO BID #20 tablet Labetalol Tab [Trandate Tab] 200 mg PO BID #60 tablet Ampicillin Cap 500 mg PO TID #21 capsule Continue Atorvastatin [Lipitor] 40 mg PO BEDTIME #30 tablet Lisinopril [Prinivil] 20 mg PO DAILY #30 tablet Aspirin EC Tab 325 mg PO DAILY amLODIPine [Norvasc] 10 mg PO DAILY #30 tablet Discontinued Zaleplon [Sonata] 5 mg PO BEDTIME PRN #30 capsule PRN Reason: Sleep hydrALAZINE TAB [Apresoline Tab] 25 mg PO TID #90 tablet Metoprolol Tartrate Tab [Lopressor Tab] 50 mg PO BID #60 tablet - Follow Up or Referral - Forms/Instructions Exam - Constitutional Vitals: Period Temp Pulse Resp BP Sys/Garza Pulse Ox Last 24 Hr 96.6 F-98 F 59-104 18-20 119-203/58-101 99-100 Discharge Results Procedures and tests throughout hospitalization: Pending Orders 12/31/16 Urine Culture Routine 01/01/17 05:05 Metanephrines, Fract., Free, P IN AM Labs on day of discharge: Labs from last 24 hours 01/02/17 01/02/17 04:44 04:44 WBC 8.4 RBC 4.42 Hgb 11.8 L Hct 36.2 MCV 81.9 L MCH 27 MCHC 32.6 RDW 13.4 Plt Count 339 MPV 10.7 Neut % (Auto) 45.3 Lymph % (Auto) 42.1 [place] % (Auto) 8.3 Eos % (Auto) 3.8 Baso % (Auto) 0.4 Neut # (Auto) 3.8 Lymph # (Auto) 3.5 [place] # (Auto) 0.7 Eos # (Auto) 0.3 Baso # (Auto) 0.0 Immature Gran % 0.1 Nucleated RBC % 0.0 Immature Gran # 0.01 Nucleated RBCs # 0.00 Sodium 144 Potassium 3.5 Chloride 107 Carbon Dioxide 25 Anion Gap 15.5 H BUN 11 Creatinine 0.80 GFR Calculation 100 BUN/Creatinine Ratio 13.00 Glucose 91 Calculated Osmolality 284.8 Calcium 9.0 Magnesium 2.1 Preliminary micro results at discharge 12/31/16 Unknown Urine Culture - Preliminary Urine,Clean Catch Gram Positive Cocci DS: Provider Date of admission: 12/31/16 14:37 Primary care physician: . No PCP Attending physician on admission: Claudio Meredith Jr., MD Consults: 12/31/16 17:01 Consult to Occupational Therapy [CONS] Routine Reason for Occupational Therapy: Evaluate and Treat Consult to Physical Therapy [CONS] Routine Reason for Physical Therapy: Evaluate and Treat Consult to Physician [CONS] Routine Comment: Consulting Provider: Iam Fam Discharging clinician: Diego Eden MD
[2017-01-05 09:04] LABS: Metanephrine, Free < 0.20 nmol/L (<0.50); Normetanephrine, Free 0.41 nmol/L (<0.90)
== END 2017-01-02 14:26 | disposition home or self-care (01) | DRG 305 ==
LOC: N.ED 11:43 → SUATTDRO 14:37 → N.EDINP 14:37 → N.TELEN 16:46
PROVIDERS: ADMIT Internal Medicine Nephrology; ATTEND Internal Medicine

== ENCOUNTER 2017-03-20 09:00 | Inpatient (IN) ==
--- NOTE | 2017-03-20 09:34 | Emergency Department Note ---
IBasilio Mantricia, am scribing for, and in the presence of, Juli Gibbs DO 09:26. ISai Debra, DO, personally performed the services described in this documentation, ascribed by Edison Richmond in my presence, and it is both accurate and complete 933 . Arrival - Arrival Chief Complaint: Dizziness Stated Complaint: Dizzy, near syncope ED Nursing Triage Note: Pt c/o dizziness, evelia arm weakness, pain in left chest and near syncope this am. Mode of Arrival: Ambulatory Limitations: No Limitations Source: Patient - History of Present Illness HPI Narrative: Pt is a 56 y/o black female arriving to ED via wheelchair with c/o dizziness that onset this morning. Pt reports that she had a near syncopal episode this morning, which prompted her to come to ED. She also c/o left sided chest pain and right arm weakness which she noticed while taking a bath. Pt has a had repeat visits here at ED for similar sxs. Pt was seen 03/19/17 with a c/o dizziness and elevated blood pressure. She denies experiencing any issues at home that could cause stress. No other complaints were reported to ED. Onset (ago): hour(s) Consistency: constant Severity: moderate Allergies/Adverse Reactions: Allergies Allergy/AdvReac Type Severity Reaction Status Date / Time No Known Allergies Allergy Verified 03/19/17 22:43 Home Medications: Home Medications Medication Instructions Recorded Confirmed Type Atorvastatin [Lipitor] 40 mg PO BEDTIME #30 tablet 12/10/16 03/16/17 Rx Aspirin EC Tab 325 mg PO QAM 12/31/16 03/16/17 History Labetalol Tab [Trandate Tab] 200 mg PO BID #60 tablet 01/02/17 03/16/17 Rx Lisinopril [Prinivil] 20 mg PO QAM 01/20/17 03/16/17 History amLODIPine [Norvasc] 10 mg PO QAM 01/20/17 03/16/17 History Cyproheptadine Tab [Periactin Tab] 4 mg PO BID 03/16/17 03/16/17 History Labetalol Tab [Trandate Tab] 400 mg PO BID #60 tablet 03/16/17 Rx Triamterene/Hctz 37.5-25 Cap 1 capsule PO DAILY #30 capsule 03/16/17 Rx [Dyazide] Meclizine [Antivert] 25 mg PO DAILY PRN #10 tablet 03/20/17 Rx cloNIDine TAB [Catapres Tab] 0.1 mg PO DAILY PRN #20 tablet 03/20/17 Rx Review of System - Review of System 12 point system: reviewed and no additional remarkable complaints except as stated - Review of System Constitutional: Present: weakness (right arm). Absent: chills, diaphoresis, fever Respiratory: Absent: cough Cardiovascular: Present: chest pain (left sided) Gastrointestinal: Absent: abdominal pain, nausea, vomiting, diarrhea Neurological: Present: vertigo. Absent: headache, weakness Medical,Surgical,& Family Hx - Medical History Cardio: History of: Cerebrovascular Disease, Hypertension Psychological: History of: Anxiety Disorders, Depression Neurology: History of: Cerebrovascular Accident No history of: Brain Aneurysm, Cerebral Hemorrhage Endocrine: History of: Dyslipidemia Respiratory: History of: Asthma Musculoskeletal: No history of: Amputation - Surgical History Neurologic Surgeries: Patient denies: Brain Aneurysm, Cerebral Hemorrhage Abdominal Surgeries: Patient denies: Abdominal Surgery Reproductive Surgeries: Patient denies;: Gynecologic Surgery, Hysterectomy - Family History Family History: Reports;: Family Cancer, Family Heart Disease (father ([place])), Family Hypertension - Social History Smoking Status: Former smoker Exam Vital Signs: Vital Signs Temperature 96.5 F L 03/20/17 09:01 Pulse Rate 74 03/20/17 10:15 Respiratory Rate 16 03/20/17 10:15 Blood Pressure 150/87 03/20/17 10:15 O2 Sat by Pulse Oximetry 100 03/20/17 10:15 - General General appearance: alert, in no apparent distress, other (slow to respond) - Head Head exam: Present: atraumatic, normocephalic - Eye Eye exam: Present: normal appearance, PERRL, EOMI - ENT ENT exam: Present: normal exam - Neck Neck exam: Present: normal inspection - Chest Chest inspection: Present: normal inspection - Respiratory Respiratory exam: Present: normal lung sounds bilaterally - Cardiovascular Cardiovascular exam: Present: regular rate, normal rhythm, normal heart sounds - Abdominal Exam Abdominal exam: Present: soft. Absent: distention, tenderness, guarding, rebound - Extremities Exam Extremities exam: Present: normal inspection - Back Exam Back exam: Present: normal inspection - Neurological Exam Neurological exam: Present: alert, oriented X3, CN II-XII intact, other (left arm weakness) - Psychiatric Psychiatric exam: Present: normal affect, normal mood - Skin Skin exam: Present: warm, dry, intact, normal color Course Course Narrative: Talk with hospitalist regarding patient's 4 visits in 5 days. She is complaining of weakness on the left side. Denies any chest pain or shortness of breath. Patient's troponin steadily going up. Give aspirin and Lovenox. And admit to hospitalist service for possible cardiology consult Results - Labs CBC & BMP: 03/20/17 09:36 03/20/17 09:36 Lab Results: I have reviewed the patients labs - EKG EKG results: interpreted by PAMELA ARTHUR, sinus rhythm - Diagnostic Findings Procedure: CT: report reviewed by me (no acute path.) Disposition Clinical Impression: Elevated troponin Case discussed with: patient, patient's family Disposition: Still a Patient Condition: Stable Time of Disposition: 11:06
[2017-03-20 10:04] LABS: Partial Thromboplastin Time 25.1 SECS (0-40)
[2017-03-20 10:05] LABS: Apearance,Urine CLEAR (Clear); Bilirubin,Urine Negative (Negative); Blood, Urine Negative (Negative); Glucose,Urine (UA) Negative (Negative); Ketones,Urine Negative (Negative); Mucus,Urine Occasional /LPF (Occasional); Nitrite,Urine Negative (Negative); Protein,Urine Negative; RBC,Urine 2 /HPF (0-4); Squamous Epithelial Cell,Urine Occasional /HPF (0-10); Urine Color Yellow (Yellow); Urine Urobilinogen < 2.0 EU/DL (0.2-1.0); WBC,Urine 3 /HPF (0-6)
[2017-03-20 10:11] LABS: Barbiturates Screen,Urine Negative (Negative); Benzodiazepines Screen,Urine Negative (Negative); Cannabinoid Screen,Urine Negative (Negative); Opiate Screen,Urine Negative (Negative); Phencyclidine Screen,Urine Negative (Negative)
[2017-03-20 10:14] LABS: Basophils % 0.3 % (0.0-0.8); Eosinophils # 0.2 10*3/uL (0.0-0.87); Eosinophils % 1.7 % (0.00-10.9); Hematocrit 38.8 VOL% (35.7-47.0); Hemoglobin 12.7 GM/DL (12.0-16.0); Immature Granulocytes % 0.3 %; Immature Granulocytes Absolute 0.04 #; Lymphocytes # 2.6 10*3/uL (1.4-4.0); Lymphocytes % 22.4 % (21.3-54.2); Mean Corpuscular HGB Conc 32.7 GM/DL (32-36); Mean Corpuscular Hemoglobin 26 PG (27-34); Mean Corpuscular Volume 80.7 FL (87-102); Mean Platelet Volume 10.3 FL (9.6-12.0); Monocytes # 0.8 10*3/uL (0.11-0.8); Neutrophils # 7.9 10*3/uL (1.4-7.4); Neutrophils % 68.3 % (38.7-73.9); Platelet Count 350 T/CUMM (130-400); Red Blood Count 4.81 MC/CUMM (3.8-5.5); Red Cell Distribution Width 14.1 % (9.3-17.3); White Blood Count 11.6 T/CUMM (4-12)
[2017-03-20 10:37] LABS: Alanine Aminotransferase 96 U/L (13-56); Albumin 4.1 G/DL (3.4-5.0); Alkaline Phosphatase 163 U/L (45-117); Aspartate Amino Transferase 33 U/L (0-37); Bilirubin,Total < 0.39 MG/DL (0.2-1.0); Blood Urea Nitrogen 14 MG/DL (7-18); Glucose 94 MG/DL (74-106); Osmolality,Calculated 275.7 MOS/KG (273-304); Potassium 3.4 MMOL/L (3.5-5.1); Sodium 138 MMOL/L (136-145); Total Protein 9.2 G/DL (6.4-8.3)
[2017-03-20 10:43] LABS: Troponin I Only 0.169 NG/ML (0.00-0.045)
--- NOTE | 2017-03-20 10:46 | CT Report ---
Exam: CT head without intravenous contrast Clinical History: 56 years Female dizziness, left arm weakness Technique: Axial computed tomography images of the head/brain without intravenous contrast Comparison: March 16, 2017 Findings: Brain: Microangiopathic small vessel ischemic changes with remote right basal ganglia lacunar infarction, unchanged. Coronel-white matter distinction maintained. No mass effect. No intra or extra-axial hemorrhage. Ventricles: Unremarkable. No ventriculomegaly. Bones/joints: Calvarium is intact Soft tissues: Unremarkable Sinuses: No active paranasal sinus process Mastoid air cells: Unremarkable visualized. Impression: 1. No acute intracranial abnormality. PROCEDURE INTERPRETED AT [facility] DEPARTMENT OF RADIOLOGY Final Report Signed by: Michael Coronel
[2017-03-20] MEDS ORDERED: ASPIRIN 325 MG TABLET PO STA (10:53)
[2017-03-20] MEDS ORDERED: ALPRAZolam 0.25 MG TABLET PO ONE (10:53)
[2017-03-20] MEDS ORDERED: ENOXAPARIN 80 MG/0.8 ML SYRINGE SUBCUT STA (11:06)
[2017-03-20] MEDS ORDERED: ASPIRIN 325 MG TABLET ONE (11:23)
[2017-03-20] MEDS ORDERED: ENOXAPARIN 80 MG/0.8 ML SYRINGE SUBCUT ONE (11:24)
[2017-03-20] MEDS ORDERED: ALPRAZolam 0.5 MG TABLET ONE (11:25)
[2017-03-20] MEDS ORDERED: guaiFENesin/DM ER 600-30 MG TABLET PO PRN (11:34)
[2017-03-20] MEDS ORDERED: DOCUSATE SODIUM 100 MG CAPSULE PO PRN (11:34)
[2017-03-20] MEDS ORDERED: MORPHINE 2 MG/1 ML SYRINGE IV PRN (11:34)
[2017-03-20] MEDS ORDERED: ONDANSETRON 4 MG/2 ML VIAL IV PRN (11:34)
[2017-03-20] MEDS ORDERED: ACETAMINOPHEN 325 MG TABLET PO PRN (11:34)
[2017-03-20] MEDS ORDERED: diphenhydrAMINE CAP 25 MG CAPSULE PO PRN (11:34)
--- NOTE | 2017-03-20 11:41 | EKG Report ---
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
--- NOTE | 2017-03-20 12:01 | Hospitalist History & Physical ---
Assessment and Plan - Time spent with patient Time spent with patient: Greater than 30 minutes (1) Depression with anxiety Status: Acute Assessment and plan: 56-year-old -[place] female with history of hypertension, stroke, dyslipidemia admitted by the hospitalist with a 5 day history of intermittent dizziness, near syncope, and progressive upper and lower extremity weakness. Patient will be admitted to the time of telemetry unit and consult cardiology for evaluation. Will go ahead and get carotid ultrasounds and echocardiogram, MRI of the head to see if there has been an extension of her stroke. Consult neurology for evaluation as well. We will also check orthostatic vital signs. Will restart her home medications including Antivert that was given in the ED but not prescribed. Consult PT/OT for evaluation to see if patient would maybe benefit from swing bed placement after discharge. We will also trend her troponins and EKGs even though these seem to be chronically elevated. Dr. Ken will see and examine patient and further recommendations to follow. Current Visit: Yes (2) Near syncope Status: Acute Current Visit: Yes (3) Blurry vision Status: Acute Current Visit: Yes (4) Dizziness Status: Acute Current Visit: Yes (5) Cerebrovascular accident Status: Chronic Current Visit: No (6) Vertigo Status: Acute Current Visit: No (7) Essential hypertension Status: Acute Current Visit: No History of Present Illness Chief complaint: Extremity weakness, dizziness, near fainting spell History of present illness: Ms. Sprague is a 56 year old -[place] female with history of CVA, hypertension, dyslipidemia, depression, and anxiety presenting to the ED today with 5 day history of dizziness, blurry vision, and near syncopal episodes. Patient had been admitted in November 2016 with a stroke, UTI and hypertensive emergency. MRI at that time showed an acute on chronic right basal ganglia infarction. Echocardiogram done at that time showed EF of 60% with no valvular abnormalities. She was discharged on 81 mg aspirin, Lipitor, Klonopin, Apresoline, Lopressor, and Norvasc. She was then admitted 2 weeks later with elevated troponins and malignant hypertension. Cardiology was consulted, WI was ruled out by EKG and enzymes. She did do a stress test that showed no evidence of coronary ischemia. She was readmitted again in December with syncopal episodes, elevated troponins and a UTI. WI was ruled out again at that time, her antihypertensive regimen was adjusted per cardiology and they started Tranxene for her anxiety. This time around she came to the emergency room on , 03/17, and again on 03/19 for complaints of dizziness and near syncopal episodes. Today patient states she has had increased weakness and jitteriness in her lower and upper extremities equal bilaterally. She has had some dizziness and blurry vision that continues as of now, and she felt like a curtain came down over her eyes. She did not lose consciousness and she did not fall. She states it did improve when she went and sat down. She denies chest pain, shortness of breath, headaches, abdominal pain, or lower extremity edema. She denies any bleeding from mouth bowel or bladder. She states she did take her medications this morning and she is mildly hypertensive in the emergency room with blood pressure 160/90 and she is satting 100% on room air. Her CBC is normal, potassium mildly low at 3.4, alkaline phosphatase mildly elevated at 163, troponin mildly elevated at 0.169 but this seems to be chronic in nature for her and actually lower than her previous admissions, UA is negative, and her tox screen is negative. Patient currently lives with her daughter who helps take care of her ever since her stroke in November. She does walk with a cane at home but has difficulty taking care of herself. After discussion with Dr. Gibbs the ED physician and Dr. Ken the admitting hospitalist, it was agreed patient will be admitted for further evaluation and treatment. Patient's medicines will be reconciled once verified in the computer and she is a full code. Home Medications Medication Instructions Recorded Confirmed Type Atorvastatin [Lipitor] 40 mg PO BEDTIME #30 tablet 12/10/16 03/16/17 Rx Aspirin EC Tab 325 mg PO QAM 12/31/16 03/16/17 History Labetalol Tab [Trandate Tab] 200 mg PO BID #60 tablet 01/02/17 03/16/17 Rx Lisinopril [Prinivil] 20 mg PO QAM 01/20/17 03/16/17 History amLODIPine [Norvasc] 10 mg PO QAM 01/20/17 03/16/17 History Cyproheptadine Tab [Periactin Tab] 4 mg PO BID 03/16/17 03/16/17 History Labetalol Tab [Trandate Tab] 400 mg PO BID #60 tablet 03/16/17 Rx Triamterene/Hctz 37.5-25 Cap 1 capsule PO DAILY #30 capsule 03/16/17 Rx [Dyazide] Meclizine [Antivert] 25 mg PO DAILY PRN #10 tablet 03/20/17 Rx cloNIDine TAB [Catapres Tab] 0.1 mg PO DAILY PRN #20 tablet 03/20/17 Rx Allergies Allergy/AdvReac Type Severity Reaction Status Date / Time No Known Allergies Allergy Verified 03/19/17 22:43 Medical,Surgical,& Family Hx - Medical History Cardio: History of: Cerebrovascular Disease, Hypertension Psychological: History of: Anxiety Disorders, Depression Neurology: History of: Cerebrovascular Accident No history of: Brain Aneurysm, Cerebral Hemorrhage Endocrine: History of: Dyslipidemia Respiratory: History of: Asthma Musculoskeletal: No history of: Amputation - Surgical History Neurologic Surgeries: Patient denies: Brain Aneurysm, Cerebral Hemorrhage Abdominal Surgeries: Patient denies: Abdominal Surgery Reproductive Surgeries: Patient denies;: Gynecologic Surgery, Hysterectomy - Family History Family History: Reports;: Family Cancer, Family Heart Disease (father ([place])), Family Hypertension - Social History Smoking Status: Former smoker Frequency of Alcohol Use: None Type of Drug Use: None Marital Status: Lives With:: Children Functional capacity: uses cane/walker 12 point system: reviewed and no additional remarkable complaints except as stated Exam - Constitutional Vitals: Period Temp Pulse Resp BP Sys/Garza Pulse Ox Last 24 Hr 96.5 F 70-88 16-18 150-174/85-103 98-100 Exam: Constitutional System: No distress. No tremulousness. Head: Normocephalic, atraumatic. Ears, Nose and Throat System: No evidence of Otitis or Mastoiditis. No epistaxis or discharge Eyes System: Pupils equal, round, and reactive. Extraocular muscles intact. Neck: Supple, without adenopathy, No jugular venous distention. No thyromegaly, neck mass, or prior surgery apparent. Respiratory System: Chest clear to auscultation. Cardiovascular System: Heart with regular rate and rhythm. No murmur. GI System: Abdomen soft, nontender. Normo active bowel sounds present. Musculoskeletal System: limbs with no pedal edema. Full distal pulses. Neurological System: No discernable sensory deficit. No aphasia Psychiatric System: Conversation is rational Results - Labs CBC & BMP: 03/20/17 09:36 03/20/17 09:36 Lab Results: I have reviewed the past 24 hour labs - EKG EKG results: sinus rhythm - Impressions EKG shows normal sinus rhythm with mild LVH - Diagnostic Findings Procedure: Chest x-ray: pending, CT: report reviewed by me (No acute abnormality )
[2017-03-20 12:07] LABS: Risk Ratio 2.66; Thyroid Stimulating Hormone 2.21 uIU/ml (0.358-3.74); VLDL CHOLESTEROL 15.8 MG/DL
--- NOTE | 2017-03-20 12:08 | XRay Report ---
Portable chest Exam date: 03/20/2017 10:03 AM Indication: Shortness of breath, cough weakness Comparison: March 16, 2017 Findings: Cardiomediastinal contours are normal. Lungs are clear bilaterally. No acute osseous abnormalities. Visualized upper abdomen demonstrates no acute pathology. Impression: Normal chest PROCEDURE INTERPRETED AT [facility] DEPARTMENT OF RADIOLOGY Final Report Signed by: Michael Coronel
[2017-03-20] MEDS ORDERED: MECLIZINE 25 MG TABLET PO PRN (12:48)
[2017-03-20] MEDS ORDERED: cloNIDine 0.1 MG TABLET PO PRN (12:48)
[2017-03-20] MEDS ORDERED: LABETALOL 200 MG TABLET PO SCH (12:48)
--- NOTE | 2017-03-20 12:56 | Ultrasound Report ---
Exam: Carotid Doppler Date: March 20, 2017 1200 hours Indication: Syncope Technique: Duplex scan of the bilateral carotid arteries using B-mode/grayscale imaging and Doppler spectral analysis and color flow. Findings: Right Flow velocities centimeters per second Common carotid artery: 87.3 cm/s Proximal ICA: 57.2 cm/s Distal ICA: 65.3 cm/s External carotid artery: 104.7 cm/s Vertebral artery: 86.0 cm/s ICA/CCA ratio: 0.7 Left: Flow velocities centimeters per second Common carotid artery: 80.5 cm/s Proximal ICA: 30.0 cm/s Distal ICA: 90.5 cm/s External carotid artery: 56.4 cm/s Vertebral artery: 77.2 cm/s ICA/CCA ratio: 1.1 No significant atherosclerotic plaque or luminal stenosis is evident within either internal carotid artery. Color flow is present in all visualized vessels with Doppler analysis. Impression: 1. Normal study Today studies were performed utilizing indirect NASCET criteria The ultrasound images were stored and captured PROCEDURE INTERPRETED AT [facility] DEPARTMENT OF RADIOLOGY Final Report Signed by: Michael Coronel
[2017-03-20] MEDS: ENOXAPARIN 40 MG/0.4 ML SYRINGE SUBCUT SCH (13:14)
[2017-03-20] MEDS: SODIUM CHLORIDE 0.9% 1,000 ML IV SCH ×2 (13:15→21:02)
[2017-03-20] MEDS: PANTOPRAZOLE 40 MG TABLET PO SCH (13:15)
[2017-03-20] MEDS: ASPIRIN EC 325 MG TABLET PO SCH (13:43)
[2017-03-20] MEDS: TRIAMTERENE/HCTZ 37.5-25 MG CAPSULE PO SCH (13:44)
[2017-03-20] MEDS: LISINOPRIL 20 MG TABLET PO SCH (13:45)
[2017-03-20] MEDS: CYPROHEPTADINE 4 MG TABLET PO SCH ×2 (13:45→21:03)
[2017-03-20] MEDS: amLODIPine 10 MG TABLET PO SCH (13:45)
[2017-03-20] MEDS: POTASSIUM CHLORIDE 20 MEQ TABLET PO PRN ×2 (16:18→18:08)
[2017-03-20] MEDS: ATORVASTATIN 40 MG TABLET PO SCH (21:02)
[2017-03-20] MEDS: ACETAMINOPHEN 325 MG TABLET PO PRN (21:04)
--- NOTE | 2017-03-20 21:28 | ECHO Report ---
Erika Sprague Exam Date: 03/20/2017 13:31 Referring Physician: Technologist: Felicita Jaramillo Age: 56 Ht (in): 63 Wt (lb): 168 Gender: F Exam Location: [facility] Echo Indications: near syncope, dizziness, blurred vision, elevated troponin BP: 150 / 80 HR: 73 Rhythm: Sinus Technical Quality: IMPRESSIONS Normal chamber sizes Borderline concentric LVH Normal LV systolic function with ejection fraction estimated 65% without segmental wall motion reality Mild aortic sclerosis without stenosis Trace tricuspid regurgitation with RVSP 10 mmHg plus RAP MEASUREMENTS (Male / Female) Normal Values 2D ECHO LV Diastolic Diameter PLAX 2.3 cm 4.2 - 5.9 / 3.9 - 5.3 cm LV Systolic Diameter PLAX 1.5 cm LV Fractional Shortening PLAX 32.8 % IVS Diastolic Thickness 1.0 cm 0.6 - 1.0 / 0.6 - 0.9 cm LVPW Diastolic Thickness 1.0 cm 0.6 - 1.0 / 0.6 - 0.9 cm Aortic Root Diameter 2.2 cm LA Systolic Diameter LX 3.4 cm 3.0 - 4.0 / 2.7 - 3.8 cm DOPPLER TR Peak Velocity 149.0 cm/s TR Peak Gradient 8.9 mmHg FINDINGS Left Ventricle Normal left ventricular size and systolic function, left ventricular ejection fraction is estimated at Right Ventricle Normal right ventricular size. Right Atrium Normal right atrial size. Left Atrium Normal left atrial size. Mitral Valve Morphologically normal mitral valve. Aortic Valve The aortic valve is trileaflet and has normal motion. Tricuspid Valve Morphologically normal tricuspid valve. Pulmonic Valve Morphologically normal pulmonic valve. Pericardium No pericardial effusion. Aorta Normal size aortic root and proximal ascending aorta. Maurizio Nieto (Electronically Signed) Final Date: 20 March 2017 21:27
[2017-03-21 04:43] LABS: Basophils % 0.5 % (0.0-0.8); Eosinophils # 0.2 10*3/uL (0.0-0.87); Hematocrit 32.4 VOL% (35.7-47.0); Hemoglobin 10.7 GM/DL (12.0-16.0); Immature Granulocytes % 0.2 %; Immature Granulocytes Absolute 0.02 #; Lymphocytes # 3.3 10*3/uL (1.4-4.0); Lymphocytes % 38.6 % (21.3-54.2); Mean Corpuscular Hemoglobin 27 PG (27-34); Mean Platelet Volume 10.3 FL (9.6-12.0); Monocytes # 0.8 10*3/uL (0.11-0.8); Monocytes % 8.8 % (1.7-12.7); Neutrophils # 4.3 10*3/uL (1.4-7.4); Neutrophils % 49.9 % (38.7-73.9); Platelet Count 300 T/CUMM (130-400); Red Cell Distribution Width 13.9 % (9.3-17.3); White Blood Count 8.6 T/CUMM (4-12)
[2017-03-21] MEDS: SODIUM CHLORIDE 0.9% 1,000 ML IV SCH ×2 (05:09→16:10)
[2017-03-21 05:19] LABS: Calcium 8.8 MG/DL (8.5-10.1); Magnesium 1.9 MG/DL (1.8-2.4)
--- NOTE | 2017-03-21 07:17 | EKG Report ---
Stationary ECG Study [facility] Test Date: 03/21/2017 7:17:56 AM Pat Name: UMA AYERS Department: Room: 268 Gender: F Mica Miner: ELLIOTT : 1960 Requested by: Brenda Rousseau Order Number: [id number] Reading MD: CELESTINO THEODORE Intervals [place] Rate: 59 P: 74 AR: 183 QRS: 5 QRSD: 87 T: 150 QT: 404 QTc: 404 Interpretive Statements SINUS RHYTHM LEFT VENTRICULAR HYPERTROPHY AND ST-T CHANGE Electronically Signed On 03-25-17 06:16:41 CDT by CELESTINO THEODORE [email or web address]
--- NOTE | 2017-03-21 08:29 | Cardiology Consult Note ---
<Harriet Younger - Last Filed: 03/21/17 08:59> Assessment and Plan - Time spent with patient Time spent with patient: Greater than 30 minutes (1) Near syncope Status: Acute Assessment and plan: SEE PLAN OF CARE LISTED BELOW. Current Visit: Yes (2) Elevated troponin Status: Chronic Assessment and plan: SEE PLAN OF CARE LISTED BELOW Current Visit: Yes (3) Depression with anxiety Status: Chronic Assessment and plan: SEE PLAN OF CARE LISTED BELOW Current Visit: No (4) Essential hypertension Status: Chronic Assessment and plan: SEE PLAN OF CARE LISTED BELOW Current Visit: Yes (5) Chest pain Status: Acute Assessment and plan: SEE PLAN OF CARE LISTED BELOW Current Visit: Yes (6) Cerebrovascular accident Status: Chronic Assessment and plan: SEE PLAN OF CARE LISTED BELOW Current Visit: No (7) Dyslipidemia Status: Chronic Assessment and plan: SEE PLAN OF CARE LISTED BELOW Current Visit: No (8) Former tobacco use Status: Chronic Assessment and plan: SEE PLAN OF CARE LISTED BELOW Current Visit: No (9) Left-sided weakness Status: Chronic Assessment and plan: SEE PLAN OF CARE LISTED BELOW Current Visit: No History of Present Illness - Data of Consult Patient: new to practice Consult date: 03/21/17 Requesting Physician: Brenda Rousseau - Consult Narrative Reason for consult: elevated troponin History of present illness: [facility]: New to cardiology, Dr. Aguilar Ms. Sprague is a 56 year old female without known CAD, not routinely followed by cardiology in the clinic. She has been seen by Dr. Waldrop in the hospital. She has never followed up in clinic. Cardiac risk factors include: Uncontrolled hypertension, dyslipidemia, former smoker (quit November 2016), sedentary lifestyle and family history of premature CAD (father [place] at 81, mother [place] and brother [place] at 40). She has a history of anxiety, depression, and recent CVA. She was just discharged from the hospital on December 10, 2016 after having a basal ganglia stroke. MRI scan also showed evidence for old lacunar right basal ganglia infarct She still has residual left lower extremity weakness and left upper extremity weakness. During her last hospitalization, November 2016 she was noted to have trivial troponin bump of 0.23. She underwent cardiac stress to test which did not reveal any evidence of reversible ischemia. Preserved EF, ejection fraction 57%. Low risk scan. She has never followed up in the cardiology clinic. Patient presented to [facility] yesterday evening after experiencing a near syncopal episode. She tells me that she had just out of the bathtub and was walking to her kitchen when all of a sudden both of her legs and arms became weak. The room became dark. She sat down and this resolved after several minutes. She reports that she did not actually pass out. She denies any associated heart racing or palpitations. However, she does report that she has had heart fluttering in the remote past. This has been well controlled for quite some time now. She also experienced a brief episode of left chest heaviness. No radiation. Not associated with shortness of breath, nausea or diaphoresis. She reports that this only lasted for a couple of minutes. It was better after she sat down. Unable to identify any aggravating factors. She confirms that walking did not make her heaviness worse. She called her daughter to come over to assist her. She then presented to the ER for further evaluation. She has been chest pain-free ever since that time. She has been admitted under hospital medicine's service. Cardiology consulted to further assist with chest pain/elevated troponin. Of note, patient reports that her daughter does check her blood pressure occasionally and most of the time it is uncontrolled systolic blood pressure around 170. She reports compliance with her medications. She reports dyspnea on exertion. This is a chronic issue. This is been ongoing for several months. She underwent workup for this back in November with echocardiogram and cardiac nuclear stress test which was negative. She denies fever, chills, cough , nausea, vomiting, abdominal pain, melena, hematochezia, lower extremity swelling, orthopnea, heart racing/palpitations and PND. Patient was seen and examined on the telemetry unit. She is sitting up in bed in no acute distress. She continues to experience mild left-sided weakness. This appears to be ongoing since her previous stroke in November 2016. EKG does reveal T-wave abnormality. However, this is unchanged from her previous tracings. Troponin is elevated this hospitalization at 0.16. However, after review of patient's previous records, it appears that patient has a chronically elevated troponin. This admission her troponin is lower than usual. She just recently underwent nuclear cardiac stress test November of this year which was low risk study. No evidence of reversible ischemia. Total creatine kinase and CK- MB negative. Echocardiogram reveals preserved EF. She received therapeutic dose of Lovenox in the emergency department as well as full dose aspirin. Will hold off on adding beta blockade as her resting heart rate is in the low 60s. Continue aspirin, lipid-lowering agent and ESTEBAN inhibitor. We will continue to cycle cardiac biomarkers and EKGs. I will keep patient n.p.o. and further discuss with Dr. Aguilar regarding the need for further cardiac workup. Further plan and addendum to follow. IMPRESSION AND PLAN: 1. NEAR SYNCOPE - Patient and nursing blood episode yesterday. Could be related to her uncontrolled hypertension. Carotid ultrasound has been done and is normal. Head CT without acute abnormality. Echocardiogram reveals preserved EF. No significant valvular abnormality. I will add orthostatic vital signs. MRI today. Neurology has been consulted. No evidence of overt arrhythmias on classroom monitor. We will monitor for this. I will further discuss with Dr. Aguilar and await his additional recommendations. 2. ELEVATED TROPONIN, CHRONIC - Patient's troponin is mildly elevated at 0.1. After review patient's previous records, it appears that patient has a chronically elevated troponin. This admission her troponin is lower than usual. She just recently underwent nuclear cardiac stress test November of this year which was low risk study. No evidence of reversible ischemia. Total creatine kinase and CK-MB negative. Echocardiogram reveals preserved EF. She received therapeutic dose of Lovenox in the emergency department as well as full dose aspirin. Will hold off on adding beta blockade as her resting heart rate is in the low 60s. Continue aspirin, lipid-lowering agent and ESTEBAN inhibitor. We will continue to cycle cardiac biomarkers and EKGs. I will keep patient n.p.o. and further discuss with Dr. Aguilar regarding the need for further cardiac workup. 3. RECENT CVA - Patient discharged on 12/10/16 after being diagnosed with acute stroke. Left-sided weakness. 4 UNCONTROLLED HYPERTENSION - Elevated on admission, now well controlled. We will continue her home medications, monitor, and adjust accordingly during hospitalization. 5. DYSLIPIDEMIA - Continue lipid-lowering agent. Lipid panel reviewed. LDL 65. 6. ANXIETY AND DEPRESSION - Will defer further management and treatment to hospital medicine. 7. FORMER TOBACCO ABUSE - Quit November of this year after having her stroke. Spent greater than 5 minutes discussing the importance of compliance with cessation. 8. LEFT-SIDED CHEST HEAVINESS - She did experience left-sided chest heaviness prior to her presyncopal episode. This only lasted minutes. She just recently underwent nuclear stress test November 2016 which was a low risk study, no evidence of reversible ischemia. She has chronically elevated troponins. EKG unchanged. Echocardiogram reveals preserved EF. We will continue to cycle cardiac biomarkers and EKGs. I will keep patient n.p.o. and further discuss with Dr. Aguilar regarding the need for further cardiac workup. CC: Edward Ken MD - Home Medications and Allergies Home Medications: Home Medications Medication Instructions Recorded Confirmed Type Atorvastatin [Lipitor] 40 mg PO BEDTIME #30 tablet 12/10/16 03/20/17 Rx Aspirin EC Tab 325 mg PO QAM 12/31/16 03/20/17 History Lisinopril [Prinivil] 20 mg PO QAM 01/20/17 03/20/17 History amLODIPine [Norvasc] 10 mg PO QAM 01/20/17 03/20/17 History Cyproheptadine Tab [Periactin Tab] 4 mg PO BID 03/16/17 03/20/17 History Labetalol Tab [Trandate Tab] 400 mg PO BID #60 tablet 03/16/17 03/20/17 Rx Meclizine [Antivert] 25 mg PO BEDTIME PRN 03/20/17 03/20/17 History Triamterene/Hctz 37.5-25 Cap 1 capsule PO QAM 03/20/17 03/20/17 History [Dyazide] cloNIDine TAB [Catapres Tab] 0.1 mg PO DAILY PRN #20 tablet 03/20/17 03/20/17 Rx Allergies/Adverse Reactions: Allergies Allergy/AdvReac Type Severity Reaction Status Date / Time No Known Allergies Allergy Verified 03/19/17 22:43 - Constitutional Constitutional: Present: as per HPI, fatigue, headache(s), malaise, weakness. Absent: chills, fever(s), weight gain, weight loss - EENT Eyes: Present: blurry vision - Cardiovascular Cardiovascular: Present: as per HPI, chest pain at rest, dyspnea on exertion, lightheadedness. Absent: chest pain with activity, claudication, diaphoresis, edema, radiating jaw, neck or arm pain, orthopnea, palpitations, PND - Respiratory Respiratory: Present: as per HPI, dyspnea on exertion. Absent: cough, hemoptysis, wheezing, snoring, pain on inspiration, change in phlegm color - Gastrointestinal Gastrointestinal: Present: as per HPI. Absent: abdominal pain, change in bowel habits, coffee ground emesis, heartburn, hematemesis, hematochezia, melena, nausea, vomiting - Neurological Neurological: Present: as per HPI, abnormal speech, dizziness, headache(s), other (Near syncope). Absent: syncope - Psychiatric Psychiatric: Present: as per HPI, anxiety, depression, panic attacks Medical,Surgical,& Family Hx - Medical History Cardio: History of: Cerebrovascular Disease, Hypertension Psychological: History of: Anxiety Disorders, Depression Neurology: History of: Cerebrovascular Accident Endocrine: History of: Dyslipidemia Respiratory: History of: Asthma - Family History Family History: Reports;: Family Cancer, Family Heart Disease (father ([place])), Family Hypertension - Social History Smoking Status: Former smoker Frequency of Alcohol Use: None Type of Drug Use: None Marital Status: Single Lives With:: Alone Functional capacity: independent ambulation Physical Examination Vital Signs Temp Pulse Resp BP Pulse Ox 96.5 F L 70 18 174/103 98 03/20/17 09:01 03/20/17 09:01 03/20/17 09:01 03/20/17 09:01 03/20/17 09:01 Exam: General: Appears well with no apparent distress. Pleasant and cooperative. Appears comfortable. HEENT: PERRL, normocephalic, atraumatic. Mucous membranes moist. No jaundice noted. Conjunctiva moist and clear, sclerae anicteric Neck: No JVD/HJR, no thyromegaly or lymphadenopathy noted. No carotid bruit appreciated Cardiac: Regular rate and rhythm. No murmur rub or gallop. Lungs: Clear to auscultation without accessory muscle use to assist the respiratory pattern. Not requiring oxygen. Abdomen: Soft, bowel sounds normoactive. Nontender and nondistended. No abdominal bruit or thrill noted. No masses noted. Extremities: No clubbing, cyanosis noted. No edema noted. Upper extremity pulses 2+. Lower extremity pulses 2+. Capillary refill less than 3 seconds. Skin: No unusual lesions or rashes. No skin breakdown appreciated. Neuro: Awake, alert and oriented 3. Stuttering speech. Moves all extremities well. Left side weaker than right. Result/EKG - Labs CBC & BMP: 03/21/17 04:16 03/21/17 04:16 Lab Results: I have reviewed the past 24 hour labs Labs: Laboratory Results - last 24 hr 03/20/17 03/20/17 03/20/17 09:36 09:36 09:36 WBC 11.6 RBC 4.81 Hgb 12.7 Hct 38.8 MCV 80.7 L MCH 26 L MCHC 32.7 RDW 14.1 Plt Count 350 MPV 10.3 Neut % (Auto) 68.3 Lymph % (Auto) 22.4 [place] % (Auto) 7.0 Eos % (Auto) 1.7 Baso % (Auto) 0.3 Neut # (Auto) 7.9 H Lymph # (Auto) 2.6 [place] # (Auto) 0.8 Eos # (Auto) 0.2 Baso # (Auto) 0.0 Immature Gran % 0.3 Nucleated RBC % 0.0 Immature Gran # 0.04 Nucleated RBCs # 0.00 Immature Plt Fraction 0.0 INR 1.0 PT Patient/Control Mix 11.0 Circ Anticoag PTT 25.1 Sodium 138 Potassium 3.4 L Chloride 104 Carbon Dioxide 30 Anion Gap 7.4 BUN 14 Creatinine 0.90 GFR Calculation 87 BUN/Creatinine Ratio 15.00 Glucose 94 Hemoglobin A1c Calculated Osmolality 275.7 Calcium 10.0 Magnesium Total Bilirubin < 0.39 AST 33 ALT 96 H Alkaline Phosphatase 163 H Total Creatine Kinase 121 CK-MB (CK-2) 1.6 Troponin I 0.169 H Total Protein 9.2 H Albumin 4.1 Globulin 5.1 H Albumin/Globulin Ratio 0.8 L Triglycerides Cholesterol LDL Cholesterol VLDL Cholesterol HDL Cholesterol Heart Disease Risk Ratio Free T4 TSH 3rd Generation Urine Color Urine Appearance Urine pH Ur Specific [place] Urine Protein Urine Glucose (UA) Urine Ketones Urine Blood Urine Nitrate Urine Bilirubin Urine Urobilinogen Urine Leukocytes Urine RBC Urine WBC Ur Squamous Epith Cells Urine Mucus Ur Culture Indicated? Urine Opiates Screen Ur Barbiturates Screen Ur Phencyclidine Scrn U Amphetamine/Methamph U Benzodiazepines Scrn U Cocaine Metab Screen U Cannabinoids Screen 03/20/17 03/20/17 03/20/17 09:36 09:36 09:36 WBC RBC Hgb Hct MCV MCH MCHC RDW Plt Count MPV Neut % (Auto) Lymph % (Auto) [place] % (Auto) Eos % (Auto) Baso % (Auto) Neut # (Auto) Lymph # (Auto) [place] # (Auto) Eos # (Auto) Baso # (Auto) Immature Gran % Nucleated RBC % Immature Gran # Nucleated RBCs # Immature Plt Fraction INR PT Patient/Control Mix Circ Anticoag PTT Sodium Potassium Chloride Carbon Dioxide Anion Gap BUN Creatinine GFR Calculation BUN/Creatinine Ratio Glucose Hemoglobin A1c 6.4 H Calculated Osmolality Calcium Magnesium Total Bilirubin AST ALT Alkaline Phosphatase Total Creatine Kinase CK-MB (CK-2) Troponin I Total Protein Albumin Globulin Albumin/Globulin Ratio Triglycerides 79 Cholesterol 141 LDL Cholesterol 65.0 VLDL Cholesterol 15.8 HDL Cholesterol 53 Heart Disease Risk Ratio 2.66 Free T4 1.19 TSH 3rd Generation 2.210 Urine Color Urine Appearance Urine pH Ur Specific [place] Urine Protein Urine Glucose (UA) Urine Ketones Urine Blood Urine Nitrate Urine Bilirubin Urine Urobilinogen Urine Leukocytes Urine RBC Urine WBC Ur Squamous Epith Cells Urine Mucus Ur Culture Indicated? Urine Opiates Screen Ur Barbiturates Screen Ur Phencyclidine Scrn U Amphetamine/Methamph U Benzodiazepines Scrn U Cocaine Metab Screen U Cannabinoids Screen 03/20/17 03/20/17 03/21/17 09:44 09:44 04:16 WBC 8.6 RBC 4.00 Hgb 10.7 L D Hct 32.4 L MCV 81.0 L MCH 27 MCHC 33.0 RDW 13.9 Plt Count 300 MPV 10.3 Neut % (Auto) 49.9 Lymph % (Auto) 38.6 [place] % (Auto) 8.8 Eos % (Auto) 2.0 Baso % (Auto) 0.5 Neut # (Auto) 4.3 Lymph # (Auto) 3.3 [place] # (Auto) 0.8 Eos # (Auto) 0.2 Baso # (Auto) 0.0 Immature Gran % 0.2 Nucleated RBC % 0.0 Immature Gran # 0.02 Nucleated RBCs # 0.00 Immature Plt Fraction 0.0 INR PT Patient/Control Mix Circ Anticoag PTT Sodium Potassium Chloride Carbon Dioxide Anion Gap BUN Creatinine GFR Calculation BUN/Creatinine Ratio Glucose Hemoglobin A1c Calculated Osmolality Calcium Magnesium Total Bilirubin AST ALT Alkaline Phosphatase Total Creatine Kinase CK-MB (CK-2) Troponin I Total Protein Albumin Globulin Albumin/Globulin Ratio Triglycerides Cholesterol LDL Cholesterol VLDL Cholesterol HDL Cholesterol Heart Disease Risk Ratio Free T4 TSH 3rd Generation Urine Color Yellow Urine Appearance Clear Urine pH 7.0 Ur Specific [place] 1.010 Urine Protein Negative Urine Glucose (UA) Negative Urine Ketones Negative Urine Blood Negative Urine Nitrate Negative Urine Bilirubin Negative Urine Urobilinogen < 2.0 H Urine Leukocytes Negative Urine RBC 2 Urine WBC 3 Ur Squamous Epith Cells Occasional Urine Mucus Occasional Ur Culture Indicated? Not indicated Urine Opiates Screen Negative Ur Barbiturates Screen Negative Ur Phencyclidine Scrn Negative U Amphetamine/Methamph Negative U Benzodiazepines Scrn Negative U Cocaine Metab Screen Negative U Cannabinoids Screen Negative 03/21/17 04:16 WBC RBC Hgb Hct MCV MCH MCHC RDW Plt Count MPV Neut % (Auto) Lymph % (Auto) [place] % (Auto) Eos % (Auto) Baso % (Auto) Neut # (Auto) Lymph # (Auto) [place] # (Auto) Eos # (Auto) Baso # (Auto) Immature Gran % Nucleated RBC % Immature Gran # Nucleated RBCs # Immature Plt Fraction INR PT Patient/Control Mix Circ Anticoag PTT Sodium 143 Potassium 4.0 Chloride 111 H Carbon Dioxide 25 Anion Gap 11.0 BUN 19 H Creatinine 0.80 GFR Calculation 97 BUN/Creatinine Ratio 23.00 H Glucose 95 Hemoglobin A1c Calculated Osmolality 286.0 Calcium 8.8 Magnesium 1.9 Total Bilirubin AST ALT Alkaline Phosphatase Total Creatine Kinase CK-MB (CK-2) Troponin I Total Protein Albumin Globulin Albumin/Globulin Ratio Triglycerides Cholesterol LDL Cholesterol VLDL Cholesterol HDL Cholesterol Heart Disease Risk Ratio Free T4 TSH 3rd Generation Urine Color Urine Appearance Urine pH Ur Specific [place] Urine Protein Urine Glucose (UA) Urine Ketones Urine Blood Urine Nitrate Urine Bilirubin Urine Urobilinogen Urine Leukocytes Urine RBC Urine WBC Ur Squamous Epith Cells Urine Mucus Ur Culture Indicated? Urine Opiates Screen Ur Barbiturates Screen Ur Phencyclidine Scrn U Amphetamine/Methamph U Benzodiazepines Scrn U Cocaine Metab Screen U Cannabinoids Screen <Castro Aguilar Onel - Last Filed: 03/21/17 09:23> History of Present Illness - Consult Narrative History of present illness: Ms. Sprague is a 56 year old female whom I have personally interviewed and examined and chart reviewed. I discussed this case with Harriet Younger NP and agree with evaluation and assessment. In summation and addition this patient since her CVA December 10, 2016 has had recurrent emergency room visits for multiple complaints. She was admitted this time with bilateral extremity including arms and legs weakness while taking the sponge bath. After this onset she had a little tightness in her left upper chest just below the left clavicle without radiation. She denies shortness of breath. She had a fleeting period of nausea. She did not have any syncope. She had no palpitations during this time. Her troponin on admission was 0.164 and is decreased to 0.150. These are actually the lowest that it is been in the last several weeks. She did have a unremarkable cardiac perfusion study carried out in November of this year. Patient do not think this patient's symptomatology is cardiac in nature. Certainly her weakness may have been unusual cardiac rhythm but was asymptomatic. She has had no dysrhythmias. Her ECG reveals sinus rhythm with left ventricular hypertrophy and ST abnormalities that are unchanged from prior ECGs. We will await neurology's evaluation and will make further recommendations accordingly. Will consider discharging the patient with a event monitor to evaluate for any underlying rhythm disturbance. This is unlikely. We will continue to monitor while in the hospital. CC: Edward Ken MD Physical Examination Vital Signs Temp Pulse Resp BP Pulse Ox 96.5 F L 70 18 174/103 98 03/20/17 09:01 03/20/17 09:01 03/20/17 09:01 03/20/17 09:01 03/20/17 09:01 Result/EKG - Labs CBC & BMP: 03/21/17 04:16 03/21/17 04:16 Labs: Laboratory Results - last 24 hr 03/20/17 03/20/17 03/20/17 09:36 09:36 09:36 WBC 11.6 RBC 4.81 Hgb 12.7 Hct 38.8 MCV 80.7 L MCH 26 L MCHC 32.7 RDW 14.1 Plt Count 350 MPV 10.3 Neut % (Auto) 68.3 Lymph % (Auto) 22.4 [place] % (Auto) 7.0 Eos % (Auto) 1.7 Baso % (Auto) 0.3 Neut # (Auto) 7.9 H Lymph # (Auto) 2.6 [place] # (Auto) 0.8 Eos # (Auto) 0.2 Baso # (Auto) 0.0 Immature Gran % 0.3 Nucleated RBC % 0.0 Immature Gran # 0.04 Nucleated RBCs # 0.00 Immature Plt Fraction 0.0 INR 1.0 PT Patient/Control Mix 11.0 Circ Anticoag PTT 25.1 Sodium 138 Potassium 3.4 L Chloride 104 Carbon Dioxide 30 Anion Gap 7.4 BUN 14 Creatinine 0.90 GFR Calculation 87 BUN/Creatinine Ratio 15.00 Glucose 94 Hemoglobin A1c Calculated Osmolality 275.7 Calcium 10.0 Magnesium Total Bilirubin < 0.39 AST 33 ALT 96 H Alkaline Phosphatase 163 H Total Creatine Kinase 121 CK-MB (CK-2) 1.6 Troponin I 0.169 H Total Protein 9.2 H Albumin 4.1 Globulin 5.1 H Albumin/Globulin Ratio 0.8 L Triglycerides Cholesterol LDL Cholesterol VLDL Cholesterol HDL Cholesterol Heart Disease Risk Ratio Free T4 TSH 3rd Generation Urine Color Urine Appearance Urine pH Ur Specific [place] Urine Protein Urine Glucose (UA) Urine Ketones Urine Blood Urine Nitrate Urine Bilirubin Urine Urobilinogen Urine Leukocytes Urine RBC Urine WBC Ur Squamous Epith Cells Urine Mucus Ur Culture Indicated? Urine Opiates Screen Ur Barbiturates Screen Ur Phencyclidine Scrn U Amphetamine/Methamph U Benzodiazepines Scrn U Cocaine Metab Screen U Cannabinoids Screen 03/20/17 03/20/17 03/20/17 09:36 09:36 09:36 WBC RBC Hgb Hct MCV MCH MCHC RDW Plt Count MPV Neut % (Auto) Lymph % (Auto) [place] % (Auto) Eos % (Auto) Baso % (Auto) Neut # (Auto) Lymph # (Auto) [place] # (Auto) Eos # (Auto) Baso # (Auto) Immature Gran % Nucleated RBC % Immature Gran # Nucleated RBCs # Immature Plt Fraction INR PT Patient/Control Mix Circ Anticoag PTT Sodium Potassium Chloride Carbon Dioxide Anion Gap BUN Creatinine GFR Calculation BUN/Creatinine Ratio Glucose Hemoglobin A1c 6.4 H Calculated Osmolality Calcium Magnesium Total Bilirubin AST ALT Alkaline Phosphatase Total Creatine Kinase CK-MB (CK-2) Troponin I Total Protein Albumin Globulin Albumin/Globulin Ratio Triglycerides 79 Cholesterol 141 LDL Cholesterol 65.0 VLDL Cholesterol 15.8 HDL Cholesterol 53 Heart Disease Risk Ratio 2.66 Free T4 1.19 TSH 3rd Generation 2.210 Urine Color Urine Appearance Urine pH Ur Specific [place] Urine Protein Urine Glucose (UA) Urine Ketones Urine Blood Urine Nitrate Urine Bilirubin Urine Urobilinogen Urine Leukocytes Urine RBC Urine WBC Ur Squamous Epith Cells Urine Mucus Ur Culture Indicated? Urine Opiates Screen Ur Barbiturates Screen Ur Phencyclidine Scrn U Amphetamine/Methamph U Benzodiazepines Scrn U Cocaine Metab Screen U Cannabinoids Screen 09/24/17 09/24/17 09/25/17 09:44 09:44 04:16 WBC 8.6 RBC 4.00 Hgb 10.7 L D Hct 32.4 L MCV 81.0 L MCH 27 MCHC 33.0 RDW 13.9 Plt Count 300 MPV 10.3 Neut % (Auto) 49.9 Lymph % (Auto) 38.6 [place] % (Auto) 8.8 Eos % (Auto) 2.0 Baso % (Auto) 0.5 Neut # (Auto) 4.3 Lymph # (Auto) 3.3 [place] # (Auto) 0.8 Eos # (Auto) 0.2 Baso # (Auto) 0.0 Immature Gran % 0.2 Nucleated RBC % 0.0 Immature Gran # 0.02 Nucleated RBCs # 0.00 Immature Plt Fraction 0.0 INR PT Patient/Control Mix Circ Anticoag PTT Sodium Potassium Chloride Carbon Dioxide Anion Gap BUN Creatinine GFR Calculation BUN/Creatinine Ratio Glucose Hemoglobin A1c Calculated Osmolality Calcium Magnesium Total Bilirubin AST ALT Alkaline Phosphatase Total Creatine Kinase CK-MB (CK-2) Troponin I Total Protein Albumin Globulin Albumin/Globulin Ratio Triglycerides Cholesterol LDL Cholesterol VLDL Cholesterol HDL Cholesterol Heart Disease Risk Ratio Free T4 TSH 3rd Generation Urine Color Yellow Urine Appearance Clear Urine pH 7.0 Ur Specific [place] 1.010 Urine Protein Negative Urine Glucose (UA) Negative Urine Ketones Negative Urine Blood Negative Urine Nitrate Negative Urine Bilirubin Negative Urine Urobilinogen < 2.0 H Urine Leukocytes Negative Urine RBC 2 Urine WBC 3 Ur Squamous Epith Cells Occasional Urine Mucus Occasional Ur Culture Indicated? Not indicated Urine Opiates Screen Negative Ur Barbiturates Screen Negative Ur Phencyclidine Scrn Negative U Amphetamine/Methamph Negative U Benzodiazepines Scrn Negative U Cocaine Metab Screen Negative U Cannabinoids Screen Negative 03/21/17 04:16 WBC RBC Hgb Hct MCV MCH MCHC RDW Plt Count MPV Neut % (Auto) Lymph % (Auto) [place] % (Auto) Eos % (Auto) Baso % (Auto) Neut # (Auto) Lymph # (Auto) [place] # (Auto) Eos # (Auto) Baso # (Auto) Immature Gran % Nucleated RBC % Immature Gran # Nucleated RBCs # Immature Plt Fraction INR PT Patient/Control Mix Circ Anticoag PTT Sodium 143 Potassium 4.0 Chloride 111 H Carbon Dioxide 25 Anion Gap 11.0 BUN 19 H Creatinine 0.80 GFR Calculation 97 BUN/Creatinine Ratio 23.00 H Glucose 95 Hemoglobin A1c Calculated Osmolality 286.0 Calcium 8.8 Magnesium 1.9 Total Bilirubin AST ALT Alkaline Phosphatase Total Creatine Kinase CK-MB (CK-2) Troponin I Total Protein Albumin Globulin Albumin/Globulin Ratio Triglycerides Cholesterol LDL Cholesterol VLDL Cholesterol HDL Cholesterol Heart Disease Risk Ratio Free T4 TSH 3rd Generation Urine Color Urine Appearance Urine pH Ur Specific [place] Urine Protein Urine Glucose (UA) Urine Ketones Urine Blood Urine Nitrate Urine Bilirubin Urine Urobilinogen Urine Leukocytes Urine RBC Urine WBC Ur Squamous Epith Cells Urine Mucus Ur Culture Indicated? Urine Opiates Screen Ur Barbiturates Screen Ur Phencyclidine Scrn U Amphetamine/Methamph U Benzodiazepines Scrn U Cocaine Metab Screen U Cannabinoids Screen
[2017-03-21] MEDS: ASPIRIN EC 325 MG TABLET PO SCH (08:44)
[2017-03-21] MEDS: amLODIPine 10 MG TABLET PO SCH (08:45)
[2017-03-21] MEDS: TRIAMTERENE/HCTZ 37.5-25 MG CAPSULE PO SCH (08:45)
[2017-03-21] MEDS: LISINOPRIL 20 MG TABLET PO SCH (08:46)
[2017-03-21] MEDS: CYPROHEPTADINE 4 MG TABLET PO SCH ×2 (08:46→20:33)
[2017-03-21] MEDS: PANTOPRAZOLE 40 MG TABLET PO SCH (08:46)
[2017-03-21] MEDS: ASPIRIN EC 81 MG TABLET PO SCH (08:55)
[2017-03-21] MEDS ORDERED: LORazepam 2 MG/1 ML VIAL IV ONE (09:36)
--- NOTE | 2017-03-21 12:14 | Magnetic Resonance Report ---
History: Near syncope. Dizziness. History of stroke Date: 03/21/2017 Study: MRI brain without IV contrast Comparison exam: Noncontrast CT head March 20, 2017. MRI brain December 06, 2016 The patient was admitted on 03/20/2017 11:03 AM The brain was imaged in 3 planes on the 1.2 Annette open magnet with and without IV contrast, to include diffusion, T2, FLAIR, and pre-and postcontrast T1-weighted sequences. IV Dotarem contrast was given without immediate complication. The ventricles are midline in position without evidence of hydrocephalus. There is no Chiari I malformation. There is no gross pituitary mass. The patient has a so-called empty pituitary sella. There is no evidence of acute ischemia on the diffusion sequence. Areas of chronic lacunar infarction are noted to involve either putamen as well as the right ballard radiata. There is some patchy increased FLAIR and T2 signal in the periventricular white matter and centrum semiovale compatible with changes of small vessel disease. There is a chronic lacunar infarct in the nancy at and to the left of midline at 4 mm diameter. There is no parenchymal hemorrhage. There is no new mass. There is a normal flow void in the superior sagittal sinus. There is no gross flow abnormality in [place] area. There is no abnormal postcontrast brain parenchymal enhancement. Impression: Chronic ischemic changes. No acute ischemia. No new or worsening intracranial process PROCEDURE INTERPRETED AT [facility] DEPARTMENT OF RADIOLOGY Final Report Signed by: Dr. Zoë Camacho
[2017-03-21] MEDS: ENOXAPARIN 40 MG/0.4 ML SYRINGE SUBCUT SCH (12:53)
[2017-03-21 13:43] LABS: Troponin I Only 0.158 NG/ML (0.00-0.045)
--- NOTE | 2017-03-21 14:09 | Neurology Consult Note ---
History of Present Illness History of present illness: 56 year old -[place] female with history of CVA, hypertension, dyslipidemia, depression, and anxiety presenting to the ED today with 5 day history of dizziness, blurry vision, and near syncopal episodes. Patient had been admitted in November 2016 with a stroke, UTI and hypertensive emergency. MRI at that time showed an acute right basal ganglia infarction. She does have some residual left hemiparesis arm worse than the leg.Today patient states she has had increased weakness and jitteriness in her lower and upper extremities equal bilaterally. She has had some dizziness and blurry vision that has resolved completely now. MRI of the brain reveals no acute abnormalities this time. She reported that she felt heavy and tired in the right arm and leg which lasted for 5 seconds. No speech difficulties or swallowing problems reported. She does walk with help of a cane at home. Home Medications Medication Instructions Recorded Confirmed Type Atorvastatin [Lipitor] 40 mg PO BEDTIME #30 tablet 12/10/16 03/20/17 Rx Aspirin EC Tab 325 mg PO QAM 12/31/16 03/20/17 History Lisinopril [Prinivil] 20 mg PO QAM 01/20/17 03/20/17 History amLODIPine [Norvasc] 10 mg PO QAM 01/20/17 03/20/17 History Cyproheptadine Tab [Periactin Tab] 4 mg PO BID 03/16/17 03/20/17 History Labetalol Tab [Trandate Tab] 400 mg PO BID #60 tablet 03/16/17 03/20/17 Rx Meclizine [Antivert] 25 mg PO BEDTIME PRN 03/20/17 03/20/17 History Triamterene/Hctz 37.5-25 Cap 1 capsule PO QAM 03/20/17 03/20/17 History [Dyazide] cloNIDine TAB [Catapres Tab] 0.1 mg PO DAILY PRN #20 tablet 03/20/17 03/20/17 Rx Allergies Allergy/AdvReac Type Severity Reaction Status Date / Time No Known Allergies Allergy Verified 03/19/17 22:43 12 point system: reviewed and no additional remarkable complaints except as stated Medical,Surgical,& Family Hx - Medical History Cardio: History of: Cerebrovascular Disease, Hypertension Psychological: History of: Anxiety Disorders, Depression Neurology: History of: Cerebrovascular Accident No history of: Brain Aneurysm, Cerebral Hemorrhage Endocrine: History of: Dyslipidemia Respiratory: History of: Asthma Musculoskeletal: No history of: Amputation - Surgical History Neurologic Surgeries: Patient denies: Brain Aneurysm, Cerebral Hemorrhage Abdominal Surgeries: Patient denies: Abdominal Surgery Reproductive Surgeries: Patient denies;: Gynecologic Surgery, Hysterectomy - Family History Family History: Reports;: Family Cancer, Family Heart Disease (father ([place])), Family Hypertension - Social History Smoking Status: Former smoker Frequency of Alcohol Use: None Type of Drug Use: None Exam - Constitutional Vitals: Period Temp Pulse Resp BP Sys/Garza Pulse Ox Last 24 Hr 96.9 F-97.6 F 64-87 16-18 91-156/61-77 93-100 Exam: GENERAL: Patient is in no acute distress. NECK: Neck is supple. There is no JVD. No carotid bruits present. No thyroid masses. CVS: First and second heart sounds are normal. There is no S3 present. Regular rate and rhythm. RESPIRATORY: Lungs are clear to auscultation without any rales or rhonchi. ABDOMEN: Soft and non-tender. Bowel sounds are present. There is no hepatosplenomegaly. EXT: There is no palpable edema. Peripheral pulses are present. Skin: No rashes Central Nervous system: General: Alert, awake and Oriented x 3 Speech: Fluent Comprehension: Intact and normal Facial expressions: Normal Cranial Nerves: CN1/Olfactory: Normal CN II/ Optic: Normal, Visual Smith unreliable CN III, and : CARMELITA & EOMI CN V: Normal & intact CN VII: face is symmetric CNVIII: Normal CN XI/X/XI/XII: Intact and Normal Motor: Bulk and Tone is normal. Strength in the right 5/5 Strength in the left upper extremity 2-3/5 and lower extreme 4/5 Sensory: Grossly intact for all the modalities of PP, LT and temp sense Reflexes: 1+ and symmetrical Cerebellar function: Normal finger to nose and heel to fontaine testing in the right. Toes: Equivocal Gait: Able to get up and walk. Slightly broad-based circumducting gait. Results - Labs CBC & BMP: 03/21/17 04:16 03/21/17 04:16 Assessment and Plan (1) History of CVA (cerebrovascular accident) Status: Acute Assessment and plan: Patient seems to be doing better. Continue aspirin a day. Current Visit: Yes (2) Dizziness Status: Acute Assessment and plan: This is very nonspecific. No evidence of posterior circulation TIA or stroke. No further intervention needed from neuro standpoint Sign off please call as needed Current Visit: Yes
--- NOTE | 2017-03-21 14:25 | Event Note ---
Neurologist seen the patient signed off. The patient's had no specific rhythm issues here in the hospital and I think at this time she can actually be discharged. We can make arrangements for her to have an event monitor placed to follow with her in a month. I suspect her episodes are noncardiac. Because of her prior history of palpitations though is appropriate to evaluate this aspect.
--- NOTE | 2017-03-21 16:41 | Hospitalist Progress Note ---
Assessment and Plan (1) Dizziness Status: Acute Assessment and plan: Dizziness has resolved. Neuro has signed off. Current Visit: Yes (2) Chest pain Status: Acute Assessment and plan: Cardiology following. Chest pain has resolved. Last troponin 0.158 down from initial troponin of 0.169. Current Visit: Yes Hospitalist: Subjective Interval history: Pt. seen and examined today. Family present at the bedside. No acute issues overnight. Pt states "I feel a little better". Pt. denies chest pain and shortness of breath. Neuro signed off. Cards following. We will continue to follow. Possibly dc in am. Exam - Constitutional Vitals: Period Temp Pulse Resp BP Sys/Garza Pulse Ox Last 24 Hr 96.9 F-97.6 F 64-75 16-18 91-156/61-77 93-99 General appearance: normal weight, no acute distress - Head Head exam: Present: normal inspection, normocephalic - Eye Eye exam: Present: EOMI Pupils: Present: CARMELITA - Respiratory Respiratory exam: Present: clear to auscultation bilaterally. Absent: wheezes - Cardiovascular Cardiovascular exam: Present: regular rate and rhythm - GI/Abdominal GI/Abdominal exam: Present: normal bowel sounds, soft. Absent: tenderness - Neurological Exam Neurological exam: Present: alert, oriented X3 - Psychiatric Psychiatric exam: Present: normal affect, normal mood - Skin Skin exam: Present: normal color, warm, dry Results - Labs CBC & BMP: 03/21/17 04:16 03/21/17 04:16 Lab Results: I have reviewed the past 24 hour labs
[2017-03-21 17:06] LABS: Troponin I Only 0.152 NG/ML (0.00-0.045)
[2017-03-21] MEDS: ATORVASTATIN 40 MG TABLET PO SCH (20:33)
[2017-03-22] MEDS: SODIUM CHLORIDE 0.9% 1,000 ML IV SCH ×4 (01:02→21:27)
[2017-03-22 05:13] LABS: Basophils % 0.4 % (0.0-0.8); Eosinophils # 0.3 10*3/uL (0.0-0.87); Eosinophils % 3.5 % (0.00-10.9); Immature Granulocytes % 0.2 %; Immature Granulocytes Absolute 0.02 #; Lymphocytes % 46.4 % (21.3-54.2); Mean Corpuscular HGB Conc 33.3 GM/DL (32-36); Mean Corpuscular Hemoglobin 27 PG (27-34); Mean Corpuscular Volume 80.7 FL (87-102); Mean Platelet Volume 10.3 FL (9.6-12.0); Monocytes # 0.6 10*3/uL (0.11-0.8); Monocytes % 6.9 % (1.7-12.7); Neutrophils # 3.7 10*3/uL (1.4-7.4); Neutrophils % 42.6 % (38.7-73.9); Platelet Count 304 T/CUMM (130-400); Red Blood Count 4.09 MC/CUMM (3.8-5.5); Red Cell Distribution Width 13.9 % (9.3-17.3); White Blood Count 8.6 T/CUMM (4-12)
[2017-03-22 05:57] LABS: Calcium 9.1 MG/DL (8.5-10.1); Osmolality,Calculated 283.1 MOS/KG (273-304); Potassium 3.7 MMOL/L (3.5-5.1)
--- NOTE | 2017-03-22 08:04 | Order Completion Report ---
See report scanned to EMR
--- NOTE | 2017-03-22 08:21 | Discharge Summary ---
Hospital Course - Hospital Course Hospital Course: Ms. Sprague is a 56 yr old black female patient with a history hypertension, CVA , dyslipidemia, depression, and anxiety presented to the ED on 03/20 with a 5 day history of dizziness, blurry vision, and near syncopal episodes. Patient has had multiple admissions within the last 3 months. Patient was recently admitted in November 2016 with a stroke, UTI, and hypertensive emergency. At that time MRI revealed an acute on chronic right basal ganglia infarction. After that she was subsequently admitted with elevated troponins in November. She was also malignant hypertension and a syncopal episode in December. Prior to her current admission on 03/20, she presented to the ED on 03/16, 03/17, and 03/19 for complaints of dizziness and near syncopal episodes. This admission, patient presented weak, mildly hypertensive and reported being dizzy. She was admitted for further evaluation and treatment. Cardiology and neurology saw patient during this stay. Cardiology ordered orthostatic vital signs. Because of reports of left sided chest heaviness, troponins were cycled and EKGs ordered. All unremarkable. Cardiology signed off case as there were no rhythm changes noted for patient. The suspicion is that her episodes are noncardiac. Neuro evaluated pt. Head CT was negative. MRI was also ordered and also unremarkable. Dizziness improved. Vital signs stabilized. Pt. has reached maximum benefit of hospital stay and can be discharged. Further instruction to follow per Dr. Ken. Pt. will need to see her PCP and follow up for possible event monitor with cardiology. Diagnosis - Discharge Diagnosis (1) Dizziness Status: Acute (2) Chest pain Status: Acute Specialty Discharge - Follow Up or Referrals Follow up with: Castro Aguilar MD [Physician] - (Instruct patient to pickle sorter event monitor at [facility] [place] [facility] after being discharged today. She will then follow with Dr. Aguilar in 1 month.) Discharge Plan - Discharge Medications No Action Atorvastatin [Lipitor] 40 mg PO BEDTIME #30 tablet Lisinopril [Prinivil] 20 mg PO QAM Labetalol Tab [Trandate Tab] 400 mg PO BID #60 tablet cloNIDine TAB [Catapres Tab] 0.1 mg PO DAILY PRN #20 tablet PRN Reason: Blood Pressure-Increased Meclizine [Antivert] 25 mg PO BEDTIME PRN PRN Reason: Vertigo Aspirin EC Tab 325 mg PO QAM amLODIPine [Norvasc] 10 mg PO QAM Cyproheptadine Tab [Periactin Tab] 4 mg PO BID Triamterene/Hctz 37.5-25 Cap [Dyazide] 1 capsule PO QAM - Follow Up or Referral Follow Up: Castro Aguilar MD [Physician] - (Instruct patient to pickle sorter event monitor at [facility] [place] [facility] after being discharged today. She will then follow with Dr. Aguilar in 1 month.) - Forms/Instructions Exam - Constitutional Vitals: Period Temp Pulse Resp BP Sys/Garza Pulse Ox Last 24 Hr 96.7 F-98 F 64-99 16-20 117-155/61-76 97-99 General appearance: normal weight, no acute distress - Head Head exam: Present: normal inspection, normocephalic - Eye Eye exam: Present: EOMI. Absent: scleral icterus Pupils: Present: CARMELITA - Neck Neck exam: Present: normal inspection - Respiratory Respiratory exam: Present: clear to auscultation bilaterally. Absent: wheezes - Cardiovascular Cardiovascular exam: Present: regular rate and rhythm - GI/Abdominal GI/Abdominal exam: Present: normal bowel sounds, soft. Absent: tenderness - Extremities Exam Extremities exam: Present: normal capillary refill, other (left upper arm in splint). Absent: edema - Neurological Exam Neurological exam: Present: alert, oriented X3 - Psychiatric Psychiatric exam: Present: normal affect, normal mood - Skin Skin exam: Present: normal color, warm, dry Discharge Results Procedures and tests throughout hospitalization: Pending Orders 03/23/17 04:00 BMP w/ Mg [Basic Metabolic Panel w/Mg] IN AM CBC [Comp Blood Count Auto Diff] IN AM 03/24/17 04:00 BMP w/ Mg [Basic Metabolic Panel w/Mg] IN AM CBC [Comp Blood Count Auto Diff] IN AM 03/25/17 04:00 BMP w/ Mg [Basic Metabolic Panel w/Mg] IN AM CBC [Comp Blood Count Auto Diff] IN AM Labs on day of discharge: Labs from last 24 hours 03/22/17 03/22/17 03/21/17 04:27 04:27 16:02 WBC 8.6 RBC 4.09 Hgb 11.0 L Hct 33.0 L MCV 80.7 L MCH 27 MCHC 33.3 RDW 13.9 Plt Count 304 MPV 10.3 Neut % (Auto) 42.6 Lymph % (Auto) 46.4 [place] % (Auto) 6.9 Eos % (Auto) 3.5 Baso % (Auto) 0.4 Neut # (Auto) 3.7 Lymph # (Auto) 4.0 [place] # (Auto) 0.6 Eos # (Auto) 0.3 Baso # (Auto) 0.0 Immature Gran % 0.2 Nucleated RBC % 0.0 Immature Gran # 0.02 Nucleated RBCs # 0.00 Immature Plt Fraction 0.0 Sodium 142 Potassium 3.7 Chloride 107 Carbon Dioxide 25 Anion Gap 13.7 BUN 14 Creatinine 0.60 GFR Calculation 123 BUN/Creatinine Ratio 23.00 H Glucose 94 Calculated Osmolality 283.1 Calcium 9.1 Magnesium 2.0 Total Creatine Kinase 108 CK-MB (CK-2) 1.3 Troponin I 0.152 H 03/21/17 03/21/17 12:53 08:39 WBC RBC Hgb Hct MCV MCH MCHC RDW Plt Count MPV Neut % (Auto) Lymph % (Auto) [place] % (Auto) Eos % (Auto) Baso % (Auto) Neut # (Auto) Lymph # (Auto) [place] # (Auto) Eos # (Auto) Baso # (Auto) Immature Gran % Nucleated RBC % Immature Gran # Nucleated RBCs # Immature Plt Fraction Sodium Potassium Chloride Carbon Dioxide Anion Gap BUN Creatinine GFR Calculation BUN/Creatinine Ratio Glucose Calculated Osmolality Calcium Magnesium Total Creatine Kinase 106 104 CK-MB (CK-2) 1.7 1.4 Troponin I 0.158 H 0.150 H DS: Provider Date of admission: 03/20/17 11:03 Primary care physician: . No PCP Attending physician on admission: Edward Ken MD Consults: 03/20/17 11:34 Consult to Physician [CONS] Routine Comment: near syncope,dizziness Consulting Provider: Cardiology - [facility] When should Consulting Provider be notified: Now Person Notified: Dr. Nieto Date Notified: 03/20/17 Time Notified: 13:50 Consult to Physician [CONS] Routine Comment: near syncope,dizziness,h/o stroke Consulting Provider: Sal Goode When should Consulting Provider be notified: Now Person Notified: Dr. Goode Date Notified: 03/20/17 Time Notified: 13:55 03/20/17 12:17 Consult to Occupational Therapy [CONS] Routine Reason for Occupational Therapy: Evaluate and Treat Consult to Physical Therapy [CONS] Routine Reason for Physical Therapy: Evaluate and Treat Discharging clinician: Andrzej Fontenot NP
[2017-03-22] MEDS: ASPIRIN EC 81 MG TABLET PO SCH (08:48)
[2017-03-22] MEDS: TRIAMTERENE/HCTZ 37.5-25 MG CAPSULE PO SCH (08:48)
[2017-03-22] MEDS: amLODIPine 10 MG TABLET PO SCH (08:48)
[2017-03-22] MEDS: LISINOPRIL 20 MG TABLET PO SCH (08:48)
[2017-03-22] MEDS: PANTOPRAZOLE 40 MG TABLET PO SCH (08:48)
[2017-03-22] MEDS: CYPROHEPTADINE 4 MG TABLET PO SCH ×2 (08:48→21:19)
--- NOTE | 2017-03-22 11:53 | Cardiology Progress Note ---
<Harriet Younger - Last Filed: 03/22/17 11:43> Assessment and Plan (1) Near syncope Status: Acute Assessment and plan: SEE PLAN OF CARE LISTED BELOW. Current Visit: Yes (2) Elevated troponin Status: Chronic Assessment and plan: SEE PLAN OF CARE LISTED BELOW Current Visit: Yes (3) Depression with anxiety Status: Chronic Assessment and plan: SEE PLAN OF CARE LISTED BELOW Current Visit: No (4) Essential hypertension Status: Chronic Assessment and plan: SEE PLAN OF CARE LISTED BELOW Current Visit: Yes (5) Chest pain Status: Acute Assessment and plan: SEE PLAN OF CARE LISTED BELOW Current Visit: Yes (6) Cerebrovascular accident Status: Chronic Assessment and plan: SEE PLAN OF CARE LISTED BELOW Current Visit: No (7) Dyslipidemia Status: Chronic Assessment and plan: SEE PLAN OF CARE LISTED BELOW Current Visit: No (8) Former tobacco use Status: Chronic Assessment and plan: SEE PLAN OF CARE LISTED BELOW Current Visit: No (9) Left-sided weakness Status: Chronic Assessment and plan: SEE PLAN OF CARE LISTED BELOW Current Visit: No Cardiology - PN: Subj Interval history: [employer]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 Aguilar SUMMARY Ms. Sprague is a 56 year old female without known CAD, not routinely followed by cardiology in the clinic. She has been seen by Dr. Waldrop in the hospital. She has never followed up in clinic. Cardiac risk factors include: Uncontrolled hypertension, dyslipidemia, former smoker (quit November 2016), sedentary lifestyle and family history of premature CAD (father MT at 81, mother MT and brother MT at 40). She has a history of anxiety, depression, and recent CVA. She was just discharged from the hospital on December 10, 2016 after having a basal ganglia stroke. MRI scan also showed evidence for old lacunar right basal ganglia infarct She still has residual left lower extremity weakness and left upper extremity weakness. During her last hospitalization, November 2016 she was noted to have trivial troponin bump of 0.23. She underwent cardiac stress to test which did not reveal any evidence of reversible ischemia. Preserved EF, ejection fraction 57%. Low risk scan. She has never followed up in the cardiology clinic. Patient presented to [facility] after experiencing a near syncopal episode. Cardiology was consulted to further evaluate for cardiac causes. 2016 Patient was seen and examined on the telemetry unit. She is doing well this morning and tells me that she is going to be discharged later today per hospital medicine. Denies chest pain, heaviness or tightness. Denies shortness of breath. I have arranged for her to go to the [facility] to parts picker an event monitor to further evaluate her palpitations. She verbalizes understanding of this and reports that she will pick this up after being discharged. She has then been given a follow-up appointment with Dr. Aguilar in 1 month to review these results. I suspect her episodes are noncardiac. Because of her prior history of palpitations though is appropriate to evaluate this aspect. Patient is stable for discharge from a cardiac standpoint. IMPRESSION AND PLAN: 1. NEAR SYNCOPE - Carotid ultrasound has been done and is normal. Head CT without acute abnormality. Echocardiogram reveals preserved EF. No significant valvular abnormality. MRI revealed no acute ischemia. Neurology saw patient and signed off. The patient's had no specific rhythm issues here in the hospital. Recommend event monitor at discharge. I have discussed this with the patient. She will pick this up at the [facility] after being discharged today. She will then follow with Dr. Aguilar in 1 month to review these results. I suspect her episodes are noncardiac. Because of her prior history of palpitations though is appropriate to evaluate this aspect. 2. ELEVATED TROPONIN, CHRONIC - Patient's troponin is mildly elevated at 0.1. After review patient's previous records, it appears that patient has a chronically elevated troponin. No evidence of ACS. 3. RECENT CVA - Patient discharged on 12/10/16 after being diagnosed with acute stroke. Left-sided weakness. 4 UNCONTROLLED HYPERTENSION - Elevated on admission, now well controlled. We will continue her home medications, monitor, and adjust accordingly during hospitalization. 5. DYSLIPIDEMIA - Continue lipid-lowering agent. Lipid panel reviewed. LDL 65. 6. ANXIETY AND DEPRESSION - Will defer further management and treatment to hospital medicine. 7. FORMER TOBACCO ABUSE - Quit November of this year after having her stroke. Spent greater than 5 minutes discussing the importance of compliance with cessation. 8. LEFT-SIDED CHEST HEAVINESS - No evidence of ACS. Exam (Progress Note) - Constitutional Vitals: Period Temp Pulse Resp BP Sys/Garza Pulse Ox Last 24 Hr 96.7 F-98 F 64-99 16-20 117-155/61-97 97-100 Exam: General: Appears well with no apparent distress. Pleasant and cooperative. Appears comfortable. HEENT: PERRL, normocephalic, atraumatic. Mucous membranes moist. No jaundice noted. Conjunctiva moist and clear, sclerae anicteric Neck: No JVD/HJR, no thyromegaly or lymphadenopathy noted. No carotid bruit appreciated Cardiac: Regular rate and rhythm. No murmur rub or gallop. Lungs: Clear to auscultation without accessory muscle use to assist the respiratory pattern. Not requiring oxygen. Abdomen: Soft, bowel sounds normoactive. Nontender and nondistended. No abdominal bruit or thrill noted. No masses noted. Extremities: No clubbing, cyanosis noted. No edema noted. Upper extremity pulses 2+. Lower extremity pulses 2+. Capillary refill less than 3 seconds. Skin: No unusual lesions or rashes. No skin breakdown appreciated. Neuro: Awake, alert and oriented 3. Stuttering speech. Moves all extremities well. Left side weaker than right. Result/EKG - Labs CBC & BMP: 03/22/17 04:27 03/22/17 04:27 Lab Results: I have reviewed the past 24 hour labs Labs: Laboratory Results - last 24 hr 03/21/17 03/21/17 03/22/17 12:53 16:02 04:27 WBC 8.6 RBC 4.09 Hgb 11.0 L Hct 33.0 L MCV 80.7 L MCH 27 MCHC 33.3 RDW 13.9 Plt Count 304 MPV 10.3 Neut % (Auto) 42.6 Lymph % (Auto) 46.4 [place] % (Auto) 6.9 Eos % (Auto) 3.5 Baso % (Auto) 0.4 Neut # (Auto) 3.7 Lymph # (Auto) 4.0 [place] # (Auto) 0.6 Eos # (Auto) 0.3 Baso # (Auto) 0.0 Immature Gran % 0.2 Nucleated RBC % 0.0 Immature Gran # 0.02 Nucleated RBCs # 0.00 Immature Plt Fraction 0.0 Sodium Potassium Chloride Carbon Dioxide Anion Gap BUN Creatinine GFR Calculation BUN/Creatinine Ratio Glucose Calculated Osmolality Calcium Magnesium Total Creatine Kinase 106 108 CK-MB (CK-2) 1.7 1.3 Troponin I 0.158 H 0.152 H 03/22/17 04:27 WBC RBC Hgb Hct MCV MCH MCHC RDW Plt Count MPV Neut % (Auto) Lymph % (Auto) [place] % (Auto) Eos % (Auto) Baso % (Auto) Neut # (Auto) Lymph # (Auto) [place] # (Auto) Eos # (Auto) Baso # (Auto) Immature Gran % Nucleated RBC % Immature Gran # Nucleated RBCs # Immature Plt Fraction Sodium 142 Potassium 3.7 Chloride 107 Carbon Dioxide 25 Anion Gap 13.7 BUN 14 Creatinine 0.60 GFR Calculation 123 BUN/Creatinine Ratio 23.00 H Glucose 94 Calculated Osmolality 283.1 Calcium 9.1 Magnesium 2.0 Total Creatine Kinase CK-MB (CK-2) Troponin I Specialty Discharge - Follow Up or Referrals Follow up with: Castro Aguilar MD [Physician] - (Instruct patient to parts picker event monitor at cardiovascular [place] [facility] the [facility] after being discharged today. She will then follow with Dr. Aguilar in 1 month.) <Castro Aguilar - Last Filed: 03/22/17 15:04> Cardiology - PN: Subj Interval history: Patient personally interviewed and examined today and chart again reviewed. I have discussed this patient's case with Harriet Younger NP. I agree with the assessment and evaluation plan as stated. She can be discharged from our standpoint I think she is stable cardiac. It is unlikely that her dizziness is cardiac related but we will carry out the event monitor to make sure she has no underlying rhythm issues as etiology of this as well as for any symptoms of palpitation she may have. Her cardiac status is stable and again her minimally increased troponins were not diagnostic for cardiac disease and have been flat and previously elevated. At this point time other than having an event monitor follow-up with this no further cardiac evaluation is indicated. She will be discharged from our standpoint. It is noted that her blood pressures up some today and her medications have not been titrated by the primary service. Exam (Progress Note) - Constitutional Vitals: Period Temp Pulse Resp BP Sys/Garza Pulse Ox Last 24 Hr 96.7 F-98.4 F 64-99 16-20 117-163/61-97 97-100 Result/EKG - Labs CBC & BMP: 03/22/17 04:27 03/22/17 04:27 Labs: Laboratory Results - last 24 hr 03/21/17 03/22/17 03/22/17 16:02 04:27 04:27 WBC 8.6 RBC 4.09 Hgb 11.0 L Hct 33.0 L MCV 80.7 L MCH 27 MCHC 33.3 RDW 13.9 Plt Count 304 MPV 10.3 Neut % (Auto) 42.6 Lymph % (Auto) 46.4 [place] % (Auto) 6.9 Eos % (Auto) 3.5 Baso % (Auto) 0.4 Neut # (Auto) 3.7 Lymph # (Auto) 4.0 [place] # (Auto) 0.6 Eos # (Auto) 0.3 Baso # (Auto) 0.0 Immature Gran % 0.2 Nucleated RBC % 0.0 Immature Gran # 0.02 Nucleated RBCs # 0.00 Immature Plt Fraction 0.0 Sodium 142 Potassium 3.7 Chloride 107 Carbon Dioxide 25 Anion Gap 13.7 BUN 14 Creatinine 0.60 GFR Calculation 123 BUN/Creatinine Ratio 23.00 H Glucose 94 Calculated Osmolality 283.1 Calcium 9.1 Magnesium 2.0 Total Creatine Kinase 108 CK-MB (CK-2) 1.3 Troponin I 0.152 H
[2017-03-22] MEDS ORDERED: LISINOPRIL 10 MG TABLET PO ONE (14:30)
[2017-03-22] MEDS: ENOXAPARIN 40 MG/0.4 ML SYRINGE SUBCUT SCH (15:46)
--- NOTE | 2017-03-22 16:59 | Hospitalist Progress Note ---
Hospitalist: Subjective Interval history: Patient is overall doing better, has some dizziness, but she is not orthostatic. Blood pressure was elevated and medications have been increased. Exam - Constitutional Vitals: Period Temp Pulse Resp BP Sys/Garza Pulse Ox Last 24 Hr 96.7 F-98.4 F 72-101 16-20 117-163/61-97 97-100 Exam: General: No Acute Distress HEENT: Normocephalic, atraumatic, Extra ocular movements intact Neck: Supple, No JVD Chest: Clear to auscultation B/L CV: S1 + S2 audible without murmur, gallop or rub Abd: soft, NT, Non-distended, BS + Ext: No edema Skin: No purpura, bruising or rash Rheumatologic: No Joint deformities Neurologic: Awake and alert Results - Labs CBC & BMP: 03/22/17 04:27 03/22/17 04:27 - Impressions Assessment and Plan (1) Dizziness Status: Acute Assessment and plan: Likely due to history of previous stroke. Neuro has signed off. Current Visit: Yes (2) Chest pain Status: Acute Assessment and plan: Cardiology following. Chest pain has resolved. Last troponin 0.158 down from initial troponin of 0.169. Current Visit: Yes (3) Essential hypertension Status: Acute Assessment and plan: Uncontrolled, dose increased to 30 mg, monitor blood pressure Current Visit: Ye Specialty Discharge - Follow Up or Referrals Follow up with: Castro Aguilar MD [Physician] - (Instruct patient to pickle sorter event monitor at cardiovascular [place] of the [facility] after being discharged today. She will then follow with Dr. Aguilar in 1 month.)
[2017-03-22] MEDS: ATORVASTATIN 40 MG TABLET PO SCH (21:19)
[2017-03-22] MEDS: ACETAMINOPHEN 325 MG TABLET PO PRN (21:19)
[2017-03-23 05:04] LABS: Basophils % 0.5 % (0.0-0.8); Eosinophils # 0.3 10*3/uL (0.0-0.87); Eosinophils % 3.3 % (0.00-10.9); Hematocrit 36.7 VOL% (35.7-47.0); Hemoglobin 11.9 GM/DL (12.0-16.0); Immature Granulocytes % 0.2 %; Immature Granulocytes Absolute 0.02 #; Lymphocytes # 3.9 10*3/uL (1.4-4.0); Lymphocytes % 44.4 % (21.3-54.2); Mean Corpuscular HGB Conc 32.4 GM/DL (32-36); Mean Corpuscular Hemoglobin 26 PG (27-34); Mean Corpuscular Volume 80.5 FL (87-102); Mean Platelet Volume 10.2 FL (9.6-12.0); Monocytes # 0.7 10*3/uL (0.11-0.8); Monocytes % 8.5 % (1.7-12.7); Neutrophils # 3.7 10*3/uL (1.4-7.4); Neutrophils % 43.1 % (38.7-73.9); Platelet Count 340 T/CUMM (130-400); Red Blood Count 4.56 MC/CUMM (3.8-5.5); Red Cell Distribution Width 13.8 % (9.3-17.3); White Blood Count 8.7 T/CUMM (4-12)
[2017-03-23 06:05] LABS: Calcium 9.5 MG/DL (8.5-10.1); Magnesium 2.1 MG/DL (1.8-2.4); Osmolality,Calculated 280.4 MOS/KG (273-304); Potassium 3.8 MMOL/L (3.5-5.1)
[2017-03-23] MEDS: SODIUM CHLORIDE 0.9% 1,000 ML IV SCH (07:22)
[2017-03-23 08:07] VITALS: BP 144/83
[2017-03-23] MEDS: TRIAMTERENE/HCTZ 37.5-25 MG CAPSULE PO SCH (08:37)
[2017-03-23] MEDS: CYPROHEPTADINE 4 MG TABLET PO SCH (08:38)
[2017-03-23] MEDS: ASPIRIN EC 81 MG TABLET PO SCH (08:38)
[2017-03-23] MEDS: amLODIPine 10 MG TABLET PO SCH (08:38)
[2017-03-23] MEDS: PANTOPRAZOLE 40 MG TABLET PO SCH (08:39)
[2017-03-23] MEDS ORDERED: LISINOPRIL 10 MG TABLET PO SCH (09:00)
[2017-03-23] MEDS ORDERED: ALPRAZolam 0.25 MG TABLET PO PRN (10:37)
--- NOTE | 2017-03-23 10:44 | Discharge Summary ---
Hospital Course - Hospital Course Hospital Course: Ms. Sprague is a 56 yr old black female patient with a history hypertension, CVA , dyslipidemia, depression, and anxiety presented to the ED on 03/20 with a 5 day history of dizziness, blurry vision, and near syncopal episodes. Patient has had multiple admissions within the last 3 months. Patient was recently admitted in November 2016 with a stroke, UTI, and hypertensive emergency. At that time MRI revealed an acute on chronic right basal ganglia infarction. After that she was subsequently admitted with elevated troponins in November. She was also malignant hypertension and a syncopal episode in December. Prior to her current admission on 03/20, she presented to the ED on 03/16, 03/17, and 03/19 for complaints of dizziness and near syncopal episodes. This admission, patient presented weak, mildly hypertensive and reported being dizzy. She was admitted for further evaluation and treatment. Cardiology and neurology saw patient during this stay. Cardiology ordered orthostatic vital signs. Because of reports of left sided chest heaviness, troponins were cycled and EKGs ordered. All unremarkable. Cardiology signed off case as there were no rhythm changes noted for patient. The suspicion is that her episodes are noncardiac. Neuro evaluated pt. Head CT was negative. MRI was also ordered and also unremarkable. Dizziness improved. Vital signs stabilized. Pt. has reached maximum benefit of hospital stay and can be discharged. Pt. will need to see her PCP and follow up for possible event monitor with cardiology. - Time spent with patient Time with patient DS: Less than 30 minutes Diagnosis - Discharge Diagnosis (1) Dizziness Status: Chronic Specialty Discharge - Follow Up or Referrals Follow up with: Castro Aguilar MD [Physician] - (Instruct patient to pear picker event monitor at cardiovascular [place] [facility] the [facility] after being discharged today. She will then follow with Dr. Aguilar in 1 month.) Discharge Plan - Discharge Data Disposition: Disch To Home/Self Care Condition at Discharge: Stable Discharge Diet: advance to your usual diet Activity: resume usual activities as tolerated Hygiene: no restrictions Weight Bearing at Discharge: full weight bearing - Discharge Medications New ALPRAZolam [Xanax] 0.25 mg PO TID PRN #90 tablet PRN Reason: Anxiety Lisinopril [Prinivil] 30 mg PO QAM #90 tablet Continue Atorvastatin [Lipitor] 40 mg PO BEDTIME #30 tablet Labetalol Tab [Trandate Tab] 400 mg PO BID #60 tablet cloNIDine TAB [Catapres Tab] 0.1 mg PO DAILY PRN #20 tablet PRN Reason: Blood Pressure-Increased Meclizine [Antivert] 25 mg PO BEDTIME PRN PRN Reason: Vertigo Aspirin EC Tab 325 mg PO QAM amLODIPine [Norvasc] 10 mg PO QAM Cyproheptadine Tab [Periactin Tab] 4 mg PO BID Triamterene/Hctz 37.5-25 Cap [Dyazide] 1 capsule PO QAM Discontinued Lisinopril [Prinivil] 20 mg PO QAM - Follow Up or Referral Follow Up: Timmy Arauz DO [Physician] - 2 Weeks Castro Aguilar MD [Physician] - 1 Month (Instruct patient to pear picker event monitor at cardiovascular [place] [facility] after being discharged today. She will then follow with Dr. Aguilar in 1 month.) - Forms/Instructions Exam - Constitutional Vitals: Period Temp Pulse Resp BP Sys/Garza Pulse Ox Last 24 Hr 96.2 F-98.4 F 71-111 16-20 106-163/63-87 93-100 Exam: General: No Acute Distress HEENT: Normocephalic, atraumatic, Extra ocular movements intact Neck: Supple, No JVD Chest: Clear to auscultation B/L CV: S1 + S2 audible without murmur, gallop or rub Abd: soft, NT, Non-distended, BS + Ext: No edema Skin: No purpura, bruising or rash Rheumatologic: No Joint deformities Neurologic: Awake and alert Discharge Results Procedures and tests throughout hospitalization: Pending Orders 03/24/17 04:00 BMP w/ Mg [Basic Metabolic Panel w/Mg] IN AM CBC [Comp Blood Count Auto Diff] IN AM 03/25/17 04:00 BMP w/ Mg [Basic Metabolic Panel w/Mg] IN AM CBC [Comp Blood Count Auto Diff] IN AM Labs on day of discharge: Labs from last 24 hours 03/23/17 03/23/17 03/23/17 07:53 04:23 04:23 WBC 8.7 RBC 4.56 Hgb 11.9 L Hct 36.7 MCV 80.5 L MCH 26 L MCHC 32.4 RDW 13.8 Plt Count 340 MPV 10.2 Neut % (Auto) 43.1 Lymph % (Auto) 44.4 [place] % (Auto) 8.5 Eos % (Auto) 3.3 Baso % (Auto) 0.5 Neut # (Auto) 3.7 Lymph # (Auto) 3.9 [place] # (Auto) 0.7 Eos # (Auto) 0.3 Baso # (Auto) 0.0 Immature Gran % 0.2 Nucleated RBC % 0.0 Immature Gran # 0.02 Nucleated RBCs # 0.00 Immature Plt Fraction 0.0 Sodium 140 Potassium 3.8 Chloride 105 Carbon Dioxide 30 Anion Gap 8.8 BUN 19 H Creatinine 0.90 GFR Calculation 85 BUN/Creatinine Ratio 21.00 H Glucose 95 POC Glucose 106 Calculated Osmolality 280.4 Calcium 9.5 Magnesium 2.1 Vitamin B12 03/22/17 14:35 WBC RBC Hgb Hct MCV MCH MCHC RDW Plt Count MPV Neut % (Auto) Lymph % (Auto) [place] % (Auto) Eos % (Auto) Baso % (Auto) Neut # (Auto) Lymph # (Auto) [place] # (Auto) Eos # (Auto) Baso # (Auto) Immature Gran % Nucleated RBC % Immature Gran # Nucleated RBCs # Immature Plt Fraction Sodium Potassium Chloride Carbon Dioxide Anion Gap BUN Creatinine GFR Calculation BUN/Creatinine Ratio Glucose POC Glucose Calculated Osmolality Calcium Magnesium Vitamin B12 586 DS: Provider Date of admission: 03/20/17 11:03 Primary care physician: . No PCP Attending physician on admission: Edward Ken MD Consults: 03/20/17 11:34 Consult to Physician [CONS] Routine Comment: near syncope,dizziness Consulting Provider: Cardiology - [facility] When should Consulting Provider be notified: Now Person Notified: Dr. Nieto Date Notified: 03/20/17 Time Notified: 13:50 Consult to Physician [CONS] Routine Comment: near syncope,dizziness,h/o stroke Consulting Provider: Sal Goode When should Consulting Provider be notified: Now Person Notified: Dr. Goode Date Notified: 03/20/17 Time Notified: 13:55 03/20/17 12:17 Consult to Occupational Therapy [CONS] Routine Reason for Occupational Therapy: Evaluate and Treat Consult to Physical Therapy [CONS] Routine Reason for Physical Therapy: Evaluate and Treat Discharging clinician: Edward Ken MD
== END 2017-03-23 12:09 | disposition home or self-care (01) | DRG 312 ==
LOC: N.ED 09:00 → N.EDINP 11:03 → N.TELES 12:38
PROVIDERS: ADMIT Hospitalist; ATTEND Hospitalist

== ENCOUNTER 2017-03-31 11:02 | Inpatient (IN) ==
--- NOTE | 2017-03-31 12:05 | Emergency Department Note ---
Arrival - Arrival Chief Complaint: Abdominal / Flank Pain Stated Complaint: stomach hurts,dizzy,weak ED Nursing Triage Note: C/O Having generalized abdomen pain for the last week. , + nausea., denies having diarrhea., denies having chills, denies having increase temp., denies having urinary problems., states the pain gets better if she lays down flat Mode of Arrival: Wheelchair Time Seen by Provider: 03/31/17 11:43 - History of Present Illness HPI Narrative: 56-year-old black female with complaints of epigastric pain 1 week. Patient was recently discharged with an extensive cardiac workup however that did not include cardiac catheterization. Patient has however had a stress test recently. The patient does have a portable cardiac exercise specialist in place. Because of the most recent admission was due to an elevated troponin at 0.1. After reading a progress note by Dr. Aguilar and evaluating previous labs it appears that she may have a chronically elevated troponin. The patient describes epigastric pain as intermittent in nature. At present she rates her pain at an 8 out of 10, but she does not appear in acute distress or acutely ill. She reports that the pain does completely subside at times and is often alleviated by lying on her side. Pain is nonradiating and sharp. She reports nausea at present as well as intermittently. Denies vomiting or diarrhea. She reports that her bowel movement frequency has changed from daily to every other day. Last bowel movement was yesterday and hard per patient report. The patient's primary care provider is Maryann at [facility], though she reports she did not see her provider due to financial reasons. Past medical history: Head injury in 1981, CVA, dyslipidemia, hypertension, asthma, anxiety/depression Past surgical history: Tubal ligation Family history: CAD, [place] Social history: Former smoker who quit earlier this year Allergies/Adverse Reactions: Allergies Allergy/AdvReac Type Severity Reaction Status Date / Time No Known Allergies Allergy Verified 03/31/17 11:12 Home Medications: Home Medications Medication Instructions Recorded Confirmed Type Atorvastatin [Lipitor] 40 mg PO BEDTIME #30 tablet 12/10/16 03/20/17 Rx Aspirin EC Tab 325 mg PO QAM 12/31/16 03/20/17 History amLODIPine [Norvasc] 10 mg PO QAM 01/20/17 03/20/17 History Cyproheptadine Tab [Periactin Tab] 4 mg PO BID 03/16/17 03/20/17 History Labetalol Tab [Trandate Tab] 400 mg PO BID #60 tablet 03/16/17 03/20/17 Rx Meclizine [Antivert] 25 mg PO BEDTIME PRN 03/20/17 03/20/17 History Triamterene/Hctz 37.5-25 Cap 1 capsule PO QAM 03/20/17 03/20/17 History [Dyazide] cloNIDine TAB [Catapres Tab] 0.1 mg PO DAILY PRN #20 tablet 03/20/17 03/20/17 Rx ALPRAZolam [Xanax] 0.25 mg PO TID PRN #90 tablet 03/23/17 Rx Lisinopril [Prinivil] 30 mg PO QAM #90 tablet 03/23/17 Rx Review of System - Review of System 12 point system: reviewed and no additional remarkable complaints except as stated - Review of System Constitutional: Present: as per HPI. Absent: fever Medical,Surgical,& Family Hx - Medical History Cardio: History of: Cerebrovascular Disease, Hypertension Psychological: History of: Anxiety Disorders, Depression Neurology: History of: Cerebrovascular Accident No history of: Brain Aneurysm, Cerebral Hemorrhage Endocrine: History of: Dyslipidemia Respiratory: History of: Asthma Musculoskeletal: No history of: Amputation - Surgical History Neurologic Surgeries: Patient denies: Brain Aneurysm, Cerebral Hemorrhage Abdominal Surgeries: Patient denies: Abdominal Surgery Reproductive Surgeries: Patient denies;: Gynecologic Surgery, Hysterectomy - Family History Family History: Reports;: Family Cancer, Family Heart Disease (father ([place])), Family Hypertension - Social History Smoking Status: Former smoker Frequency of Alcohol Use: None Type of Drug Use: None Exam Physical Examination: - General General appearance: alert, in no apparent distress - Head Head exam: atraumatic, normocephalic, normal inspection - Eye Eye exam: normal appearance, EOMI - ENT ENT exam: normal exam, mucous membranes moist, oropharynx erythematous, tonsils grade 1 without exudates, no PND - Neck Neck exam: normal inspection, full ROM, trachea midline, no lymphadenopathy - Chest Chest inspection: normal inspection, symmetric chest wall rise - Respiratory Respiratory exam: normal lung sounds bilaterally, respirations even and unlabored - Cardiovascular Cardiovascular exam: regular rate, normal rhythm, normal heart sounds - Abdominal Exam Abdominal exam: soft with diffuse tenderness, normal bowel sounds, no rebound tenderness, no guarding, no grimacing - Extremities Exam Extremities exam: normal inspection, full ROM, normal capillary refill - Back Exam Back exam: normal inspection, full ROM - Neurological Exam Neurological exam: alert, oriented X3 - Psychiatric Psychiatric exam: normal affect, normal mood - Skin Skin exam: warm, dry, intact, normal color Vital Signs: Vital Signs Temperature 98.6 F 03/31/17 11:05 Pulse Rate 103 H 03/31/17 12:48 Respiratory Rate 20 03/31/17 12:48 Blood Pressure 153/76 03/31/17 12:48 O2 Sat by Pulse Oximetry 96 03/31/17 12:48 Course Course Narrative: Patient will be admitted to the hospitalist - Reevaluation(s) Reevaluation #1: Discussed the patient with Dr. Schilling. Consult hospitalist recommended. Updated patient. Time: 13:18 - Consultations Time: 13:18 (chance mcgill np hospitalist) Results - Labs CBC & BMP: 03/31/17 11:56 03/31/17 11:56 Lab Results: I have reviewed the patients labs Disposition Clinical Impression: Epigastric pain, Hyperkalemia Disposition: Still a Patient
[2017-03-31 12:06] LABS: Basophils % 0.5 % (0.0-0.8); Eosinophils # 0.2 10*3/uL (0.0-0.87); Eosinophils % 2.5 % (0.00-10.9); Hematocrit 36.6 VOL% (35.7-47.0); Hemoglobin 11.9 GM/DL (12.0-16.0); Immature Granulocytes % 0.3 %; Immature Granulocytes Absolute 0.02 #; Lymphocytes # 2.8 10*3/uL (1.4-4.0); Lymphocytes % 34.5 % (21.3-54.2); Mean Corpuscular HGB Conc 32.5 GM/DL (32-36); Mean Corpuscular Hemoglobin 27 PG (27-34); Mean Corpuscular Volume 81.5 FL (87-102); Mean Platelet Volume 10.6 FL (9.6-12.0); Monocytes # 0.6 10*3/uL (0.11-0.8); Monocytes % 7.1 % (1.7-12.7); Neutrophils # 4.4 10*3/uL (1.4-7.4); Neutrophils % 55.1 % (38.7-73.9); Platelet Count 295 T/CUMM (130-400); Red Blood Count 4.49 MC/CUMM (3.8-5.5); Red Cell Distribution Width 13.9 % (9.3-17.3)
[2017-03-31] MEDS ORDERED: ALUM/MAG/SIMETH/LIDO VISC 1:1 30 ML BOTTLE PO STA (12:08)
[2017-03-31] MEDS ORDERED: ONDANSETRON ODT 4 MG TABLET PO STA (12:19)
[2017-03-31] MEDS ORDERED: ONDANSETRON ODT 4 MG TABLET PO ONE (12:20)
[2017-03-31] MEDS ORDERED: ALUM/MAG/SIMETH/LIDO VISC 1:1 30 ML BOTTLE PO ONE (12:20)
[2017-03-31 12:25] LABS: Apearance,Urine CLEAR (Clear); Bilirubin,Urine Negative (Negative); Blood, Urine Negative (Negative); Glucose,Urine (UA) Negative (Negative); Ketones,Urine Negative (Negative); Mucus,Urine Occasional /LPF (Occasional); Nitrite,Urine Negative (Negative); Protein,Urine Negative; RBC,Urine 2 /HPF (0-4); Squamous Epithelial Cell,Urine Occasional /HPF (0-10); Urine Color Straw (Yellow); Urine Specific Gravity 1.003 (1.001-1.035); Urine Urobilinogen < 2.0 EU/DL (0.2-1.0); WBC,Urine 13 /HPF (0-6)
[2017-03-31 12:37] LABS: Alanine Aminotransferase 150 U/L (13-56); Albumin 3.9 G/DL (3.4-5.0); Alkaline Phosphatase 165 U/L (45-117); Aspartate Amino Transferase 59 U/L (0-37); Bilirubin,Total < 0.39 MG/DL (0.2-1.0); Blood Urea Nitrogen 31 MG/DL (7-18); Calcium 9.6 MG/DL (8.5-10.1); Glucose 96 MG/DL (74-106); Osmolality,Calculated 281.7 MOS/KG (273-304); Potassium 5.8 MMOL/L (3.5-5.1); Sodium 138 MMOL/L (136-145); Troponin I Only 0.108 NG/ML (0.00-0.045)
[2017-03-31] MEDS ORDERED: SODIUM CHLORIDE 0.9% 1,000 ML IV STA (13:15)
[2017-03-31] MEDS ORDERED: cefTRIAXone 1,000 MG in SODIUM CHLORIDE 0.9% 100 ML IV STA (13:18)
[2017-03-31] MEDS ORDERED: cefTRIAXone 1,000 MG VIAL ONE (13:19)
[2017-03-31] MEDS ORDERED: guaiFENesin/DM ER 600-30 MG TABLET PO PRN (13:44)
[2017-03-31] MEDS ORDERED: ONDANSETRON 4 MG/2 ML VIAL IV PRN (13:44)
[2017-03-31] MEDS ORDERED: MORPHINE 2 MG/1 ML SYRINGE IV PRN (13:44)
[2017-03-31] MEDS ORDERED: diphenhydrAMINE CAP 25 MG CAPSULE PO PRN (13:44)
[2017-03-31] MEDS ORDERED: DOCUSATE SODIUM 100 MG CAPSULE PO PRN (13:44)
[2017-03-31] MEDS ORDERED: ACETAMINOPHEN 325 MG TABLET PO PRN ×2 (13:44)
--- NOTE | 2017-03-31 13:56 | Hospitalist History & Physical ---
<Brenda Rousseau - Last Filed: 03/31/17 13:50> Assessment and Plan - Time spent with patient Time spent with patient: Greater than 30 minutes (1) Epigastric pain Status: Acute Assessment and plan: 56-year-old -Syrian female with history of CVA, hypertension, and dyslipidemia admitted by the hospitalist service under observation with hyperkalemia, acute renal failure and urinary tract infection. Patient will be started on antibiotics for her urinary tract infection and await cultures. Patient is currently on Dyazide and lisinopril so we will hold these for now due to her acute renal failure and hyperkalemia. She will be given as needed medications for blood pressure. Consult cardiology since she has Holter monitor in place and she is a patient of Dr. Aguilar's. Will let them adjust her medications as needed. Dr. Louie will see and examine patient and further recommendations to follow. Current Visit: Yes (2) Hyperkalemia Status: Acute Current Visit: Yes (3) Elevated serum creatinine Status: Acute Current Visit: Yes (4) UTI (urinary tract infection) Status: Resolved Current Visit: No Qualifiers: Urinary tract infection type: acute cystitis Hematuria presence: without hematuria Qualified Code(s): N30.00 - Acute cystitis without hematuria History of Present Illness Chief complaint: Upper abdominal pain History of present illness: Ms. Sprague is a 56 year old -Syrian female with history of hypertension , stroke, dyslipidemia presenting to the ED with epigastric abdominal pain. Patient states it started this morning and it was associated with nausea but no vomiting. GI cocktail given in the ED did help with the pain. She usually takes Tums for this and it did not help this morning. Patient is afebrile and her vital signs are stable. Labs showing potassium elevated at 5.8 and her creatinine elevated at 1.3. Her previous admission 1 week ago with discharge on 03/23/2017 had normal potassium and creatinine at that time. Patient also has a mildly elevated troponin of 0.108 but she does have chronically elevated troponins and this is actually lower than her previous admission. She does have a UTI with moderate leukocytes and she is complaining of some dysuria. On patient's last admission her lisinopril was increased and she is also on Dyazide. She also has on a Holter monitor that was placed on discharge on 2016 to evaluate for syncope and dizziness. She is to follow-up with Dr. Aguilar in 1 month for results. After discussion with Storm Kelly NP and admitting hospitalist Dr. louie, it was agreed patient will be admitted under observation for further evaluation. Patient's medicines will be reconciled once verified in the system and she is a full code. Home Medications Medication Instructions Recorded Confirmed Type Atorvastatin [Lipitor] 40 mg PO BEDTIME #30 tablet 12/10/16 03/20/17 Rx Aspirin EC Tab 325 mg PO QAM 12/31/16 03/20/17 History amLODIPine [Norvasc] 10 mg PO QAM 01/20/17 03/20/17 History Cyproheptadine Tab [Periactin Tab] 4 mg PO BID 03/16/17 03/20/17 History Labetalol Tab [Trandate Tab] 400 mg PO BID #60 tablet 03/16/17 03/20/17 Rx Meclizine [Antivert] 25 mg PO BEDTIME PRN 03/20/17 03/20/17 History Triamterene/Hctz 37.5-25 Cap 1 capsule PO QAM 03/20/17 03/20/17 History [Dyazide] cloNIDine TAB [Catapres Tab] 0.1 mg PO DAILY PRN #20 tablet 03/20/17 03/20/17 Rx ALPRAZolam [Xanax] 0.25 mg PO TID PRN #90 tablet 03/23/17 Rx Lisinopril [Prinivil] 30 mg PO QAM #90 tablet 03/23/17 Rx Allergies Allergy/AdvReac Type Severity Reaction Status Date / Time No Known Allergies Allergy Verified 03/31/17 11:12 Medical,Surgical,& Family Hx - Medical History Cardio: History of: Cerebrovascular Disease, Hypertension Psychological: History of: Anxiety Disorders, Depression Neurology: History of: Cerebrovascular Accident No history of: Brain Aneurysm, Cerebral Hemorrhage Endocrine: History of: Dyslipidemia Respiratory: History of: Asthma Musculoskeletal: No history of: Amputation - Surgical History Neurologic Surgeries: Patient denies: Brain Aneurysm, Cerebral Hemorrhage Abdominal Surgeries: Patient denies: Abdominal Surgery Reproductive Surgeries: Patient denies;: Gynecologic Surgery, Hysterectomy - Family History Family History: Reports;: Family Cancer, Family Heart Disease (father ([place])), Family Hypertension - Social History Smoking Status: Former smoker Frequency of Alcohol Use: None Type of Drug Use: None 12 point system: reviewed and no additional remarkable complaints except as stated Exam - Constitutional Vitals: Period Temp Pulse Resp BP Sys/Garza Pulse Ox Last 24 Hr 98.6 F 77-103 16-20 152-153/76-97 96-97 Exam: Constitutional System: No distress. No tremulousness. Head: Normocephalic, atraumatic. Ears, Nose and Throat System: No evidence of Otitis or Mastoiditis. No epistaxis or discharge Eyes System: Pupils equal, round, and reactive. Extraocular muscles intact. Neck: Supple, without adenopathy, No jugular venous distention. No thyromegaly, neck mass, or prior surgery apparent. Respiratory System: Chest clear to auscultation. Cardiovascular System: Heart with regular rate and rhythm. No murmur. GI System: Abdomen soft, nontender. Normo active bowel sounds present. Musculoskeletal System: limbs with no pedal edema. Full distal pulses. Neurological System: No discernable sensory deficit. Mild stutter Psychiatric System: Conversation is rational Results - Labs CBC & BMP: 03/31/17 11:56 03/31/17 11:56 Lab Results: I have reviewed the past 24 hour labs - EKG EKG results: sinus rhythm - Impressions EKG shows sinus rhythm with borderline first-degree AV block, LVH with secondary repolarization abnormality, lateral ST-T abnormality due to hypertrophy or ischemia <Dede Louie - Last Filed: 03/31/17 14:47> History of Present Illness History of present illness: Ms. Sprague is a 56 year old female with multiple medical issues now presenting with epigastric pain, nausea and abnormal liver enzyems, elevated potassium elevated troponin and ANGELA. Plan Hold nephrotoxics and hepatotoxics IVF Abd USS Hepatitis panel amylase, Lipase levels H.pylori ASA Serial cardiac enzymes cardiology consult A1c, TSH, Lipids Reconcile home meds Bicarb, kayexalate,calcium gluconate Exam - Constitutional Vitals: Period Temp Pulse Resp BP Sys/Garza Pulse Ox Last 24 Hr 98.6 F 77-103 16-20 152-153/76-97 96-97 Results - Labs CBC & BMP: 03/31/17 11:56 03/31/17 11:56
[2017-03-31] MEDS ORDERED: SODIUM CHLORIDE 0.9% 1,000 ML IV SCH (14:00)
[2017-03-31] MEDS ORDERED: ENOXAPARIN 30 MG/0.3 ML SYRINGE SUBCUT SCH (15:00)
[2017-03-31] MEDS ORDERED: cloNIDine 0.1 MG TABLET PO PRN (15:19)
[2017-03-31] MEDS ORDERED: MECLIZINE 25 MG TABLET PO PRN (15:19)
[2017-03-31] MEDS ORDERED: SODIUM POLYSTYRENE SULFATE 15 GM/60 ML BOTTLE PO STA (15:19)
[2017-03-31] MEDS ORDERED: CALCIUM GLUCONATE 1,000 MG in SODIUM CHLORIDE 0.9% 100 ML IV ONE (15:19)
[2017-03-31] MEDS: ENOXAPARIN 40 MG/0.4 ML SYRINGE SUBCUT SCH (15:29)
[2017-03-31] MEDS: LABETALOL 200 MG TABLET PO SCH ×2 (15:29→20:49)
[2017-03-31] MEDS: PANTOPRAZOLE 40 MG TABLET PO SCH (15:29)
[2017-03-31] MEDS: ASPIRIN 325 MG TABLET PO SCH (15:29)
[2017-03-31 17:02] LABS: INR 1.1; PT Patient Result 11.3 SECS
[2017-03-31 17:13] LABS: Amylase 55 U/L (25-115); Cholesterol 127 MG/DL (50-200); HDL Cholesterol 44 MG/DL (40-60); Risk Ratio 2.89; Thyroid Stimulating Hormone 0.748 uIU/ml (0.358-3.74); Triglycerides 78 MG/DL (2-150); VLDL CHOLESTEROL 15.6 MG/DL
[2017-03-31 17:55] LABS: Hepatitis A Ab IgM Quant 0.19 Index; Hepatitis A Ab IgM Result Negative (Negative); Hepatitis B Core IgM Quant 0.12 Index; Hepatitis B Core IgM Result Negative (Negative); Hepatitis B Surface Ag Quant < 0.10 Index; Hepatitis B Surface Ag Result Negative (Negative); Hepatitis C Virus Ab Quant 0.05 Index; Hepatitis C Virus Ab Result Negative (Negative)
[2017-03-31] MEDS: CYPROHEPTADINE 4 MG TABLET PO SCH (20:49)
[2017-03-31] MEDS: SODIUM BICARB INJ 50 MEQ in STERILE WATER INJ 1,000 ML IV SCH (22:53)
[2017-04-01 03:33] LABS: Basophils % 0.4 % (0.0-0.8); Eosinophils # 0.3 10*3/uL (0.0-0.87); Eosinophils % 3.1 % (0.00-10.9); Hematocrit 32.2 VOL% (35.7-47.0); Hemoglobin 10.4 GM/DL (12.0-16.0); Immature Granulocytes % 0.1 %; Immature Granulocytes Absolute 0.01 #; Lymphocytes % 44.8 % (21.3-54.2); Mean Corpuscular HGB Conc 32.3 GM/DL (32-36); Mean Corpuscular Hemoglobin 26 PG (27-34); Mean Corpuscular Volume 81.5 FL (87-102); Mean Platelet Volume 11.1 FL (9.6-12.0); Monocytes # 0.7 10*3/uL (0.11-0.8); Neutrophils # 3.9 10*3/uL (1.4-7.4); Neutrophils % 43.6 % (38.7-73.9); Platelet Count 302 T/CUMM (130-400); Red Blood Count 3.95 MC/CUMM (3.8-5.5); Red Cell Distribution Width 13.8 % (9.3-17.3)
[2017-04-01 04:13] LABS: Troponin I Only 0.109 NG/ML (0.00-0.045)
[2017-04-01 04:33] LABS: Magnesium 2.2 MG/DL (1.8-2.4); Osmolality,Calculated 284.4 MOS/KG (273-304); Potassium 4.4 MMOL/L (3.5-5.1)
[2017-04-01] MEDS: amLODIPine 5 MG TABLET PO SCH (09:06)
[2017-04-01] MEDS: ASPIRIN 325 MG TABLET PO SCH (09:06)
[2017-04-01] MEDS: LABETALOL 200 MG TABLET PO SCH ×2 (09:06→20:16)
[2017-04-01] MEDS: CYPROHEPTADINE 4 MG TABLET PO SCH ×2 (09:06→20:16)
[2017-04-01] MEDS: PANTOPRAZOLE 40 MG TABLET PO SCH (09:07)
--- NOTE | 2017-04-01 09:41 | Ultrasound Report ---
US abdomen Indication: Generalized abdominal pain, elevated liver enzymes Comparison: None Technique: Multiple longitudinal and transverse real-time sonographic images of the abdomen are obtained. Findings: The liver measures 13.1 cm and demonstrates mildly increased echogenicity without focal abnormality on submitted images. The sonographic Sellers's sign is negative. The gallbladder is normal in size with no abnormal intraluminal echoes, wall thickening, or pericholecystic fluid. The common bile duct measures 0.4 cm in diameter. There is no evidence of intrahepatic ductal dilatation. The right and left kidneys measure 10.9 cm and 11.9 cm, respectively. There is no evidence of hydronephrosis. The spleen measures 7.3 cm without focal abnormality. Evaluation of the pancreas limited secondary to bowel gas.. IVC and aorta: Visualized portions grossly unremarkable.. No evidence of ascites. IMPRESSION: Mildly increased echogenicity of the liver suspicious for steatosis. PROCEDURE INTERPRETED AT [facility] DEPARTMENT OF RADIOLOGY Final Report Signed by: Dr Patrick Bell
--- NOTE | 2017-04-01 12:36 | Cardiology Consult Note ---
<Chastity Priest E - Last Filed: 04/01/17 12:20> Assessment and Plan - Time spent with patient Time spent with patient: Greater than 30 minutes (1) Hypertension Status: Chronic Assessment and plan: SEE PLAN OF CARE LISTED BELOW Current Visit: Yes (2) Medical non-compliance Status: Chronic Assessment and plan: SEE PLAN OF CARE LISTED BELOW Current Visit: No (3) Dyslipidemia Status: Chronic Assessment and plan: SEE PLAN OF CARE LISTED BELOW Current Visit: No (4) Elevated troponin Status: Chronic Assessment and plan: SEE PLAN OF CARE LISTED BELOW Current Visit: No (5) Depression with anxiety Status: Chronic Assessment and plan: SEE PLAN OF CARE LISTED BELOW Current Visit: No (6) Epigastric pain Status: Acute Assessment and plan: SEE PLAN OF CARE LISTED BELOW Current Visit: Yes History of Present Illness - Data of Consult Patient: known to practice within the last 3 years Consult date: 04/01/17 Requesting Physician: Dede Louie - Consult Narrative Reason for consult: Blood pressure management History of present illness: [employer] QUAL[employer] SPECIALIST: DR. THEODORE SUMMARY: 56BF without known CAD with history of hypertension, CVA, remote tobaccoism. Patient is hospitalized frequently and most recently at the end of February 2017 for near syncope. Cardiology saw the patient. She underwent nuclear stress test which revealed no evidence of reversible ischemia, low risk study. March 22, 2017 echocardiogram: EF 65% without significant valvular abnormality. Because patient had a near syncopal episode, she was discharged home with an event monitor and instructed to follow-up in clinic end of March 2017. Patient was admitted for epigastric pain (reproducible to palpation), nausea, dizziness and weakness. She has been diagnosed with UTI, GI workup in progress. Cardiology was consulted for hypotension in management of her blood pressure given her creatinine of 1.3. Patient's troponin is chronically elevated and is actually lower during this admission then in prior admissions. EKG reveals no acute event. Dyazide and lisinopril have been held. Blood pressure is actually well controlled off these medications. I personally contacted personnel at [facility] and reviewed her event monitor telemetry strips. No arrhythmia noted. Patient does not know why she is wearing the event monitor. Denies chest pain, heaviness, tightness or shortness of breath. She has no complaints of palpitations and I suspect she is wearing it because she reported a near syncopal episode during the prior admission. She has had no near syncopal episodes while wearing. She currently has a follow-up appoint with Dr. Theodore in approximately 3 weeks. At this point, blood pressure appears to be well controlled. Agree with holding of Dyazide and lisinopril given her creatinine of 1.3. We will sign off as she has no active cardiac conditions and she has been instructed to keep her appointment with Dr. Theodore. IMPRESSION AND PLAN: 1. HYPERTENSION - continue Amlodipine, Labetalol. Agree with holding Lisinopril and Dyazide. Blood pressure adequately controlled. 2. HISTORY OF NEAR SYNCOPE - no recent reports of syncope or near syncope. Wearing an event monitor. No arrhythmia and no events noted. 3. CHRONICALLY ELEVATED TROPONIN - chronically elevated troponin for several years. Actually lower than previous admissions 4. DYSLIPIDEMIA - continue lipid-lowering agent as able 5. RECENT CVA - continue aspirin 6. EPIGASTRIC PAIN - GI workup underway. Pain is located in the midepigastric area and is reproducible to palpation. Continue PPI 7. UTI - awaiting culture. Continue current medication regimen including antibiotics. CC: Dede Louie MD - Home Medications and Allergies Home Medications: Home Medications Medication Instructions Recorded Confirmed Type Atorvastatin [Lipitor] 40 mg PO BEDTIME #30 tablet 12/10/16 03/31/17 Rx Aspirin EC Tab 325 mg PO QAM 12/31/16 03/31/17 History amLODIPine [Norvasc] 10 mg PO QAM 01/20/17 03/31/17 History Cyproheptadine Tab [Periactin Tab] 4 mg PO BID 03/16/17 03/31/17 History Labetalol Tab [Trandate Tab] 400 mg PO BID #60 tablet 03/16/17 03/31/17 Rx Meclizine [Antivert] 25 mg PO BEDTIME PRN 03/20/17 03/31/17 History Triamterene/Hctz 37.5-25 Cap 1 capsule PO QAM 03/20/17 03/31/17 History [Dyazide] ALPRAZolam [Xanax] 0.25 mg PO TID PRN #90 tablet 03/23/17 03/31/17 Rx Allergies/Adverse Reactions: Allergies Allergy/AdvReac Type Severity Reaction Status Date / Time No Known Allergies Allergy Verified 03/31/17 11:12 Review of systems: REVIEW OF SYSTEMS: - Constitutional Constitutional: Present: Fatigue. Absent: syncope, anorexia, night sweats - EENT Eyes: Absent: blurry vision, loss of vision, diplopia Ears: Absent: decreased hearing, ear pain, ear discharge - Cardiovascular Cardiovascular: Denies: chest pain with exertion, dyspnea on exertion, edema, palpitations. Absent: chest pain with deep breath, claudication - Respiratory Respiratory: Denies: BAUMAN, cough. Absent: wheezing, hemoptysis, change in phlegm color - Gastrointestinal Gastrointestinal: Denies: constipation. Acknowledges abdominal pain, some nausea. No vomiting. Absent: hematemesis, hematochezia, melena, change in bowel habits - Genitourinary Genitourinary: Absent: difficulty urinating, dysuria, urinary hesitancy, flank pain - Musculoskeletal Musculoskeletal: Present: back pain Absent: joint swelling, muscle cramps, muscle weakness - Neurological Neurological: Present: normal gait without frequent falls. Absent: dizziness, hemiparesis - Psychiatric Psychiatric: Acknowledges: anxiety, depression. Denies difficulty concentrating - Endocrine Endocrine: Absent: cold intolerance, heat intolerance, polyuria, polyphagia, polydipsia - Hematologic/Lymphatic Hematologic/Lymphatic: Present: easy bruising. Absent: easy bleeding -Integumentary Integumentary: Absent: lesions, rashes, skin breakdown Medical,Surgical,& Family Hx - Medical History Cardio: History of: Cerebrovascular Disease, Hypertension Psychological: History of: Anxiety Disorders, Depression Neurology: History of: Cerebrovascular Accident No history of: Brain Aneurysm, Cerebral Hemorrhage Endocrine: History of: Dyslipidemia Respiratory: History of: Asthma Musculoskeletal: No history of: Amputation - Surgical History Neurologic Surgeries: Patient denies: Brain Aneurysm, Cerebral Hemorrhage Abdominal Surgeries: Patient denies: Abdominal Surgery Reproductive Surgeries: Patient denies;: Gynecologic Surgery, Hysterectomy - Family History Family History: Reports;: Family Cancer, Family Heart Disease (father ([place])), Family Hypertension - Social History Smoking Status: Former smoker Frequency of Alcohol Use: None Type of Drug Use: None Physical Examination Vital Signs Temp Pulse Resp BP Pulse Ox 98.6 F 77 16 152/97 97 03/31/17 11:05 03/31/17 11:05 03/31/17 11:05 03/31/17 11:05 03/31/17 11:05 Exam: General: [Appears well with no apparent distress.] [Pleasant and cooperative. ] [Appears comfortable.] HEENT: [Poor dentition noted. PERRL, normocephalic, atraumatic. Mucous membranes moist. No jaundice noted. Conjunctiva moist and clear, sclerae anicteric] Neck: No JVD/HJR, no thyromegaly or lymphadenopathy noted. No carotid bruit appreciated Cardiac: [Regular rate and rhythm.] [No murmur, rub or gallop.] Lungs: [Clear to auscultation without accessory muscle use to assist the respiratory pattern.] Not requiring oxygen Abdomen: Soft, bowel sounds normoactive. Tender in the midepigastric area. Nondistended. No abdominal bruit or thrill noted. No masses noted. Musculoskeletal: No fluid collection. Decreased range of motion is noted. Extremities: No clubbing, cyanosis noted. [ No edema noted.] Upper extremity pulses 2+. Lower extremity pulses 2+. Capillary refill less than 3 seconds. Skin: No unusual lesions or rashes. No skin breakdown appreciated. Neuro: Awake, alert and oriented 3. Moves all extremities well without hemiparesis or paralysis. Result/EKG - Labs CBC & BMP: 04/01/17 01:41 04/01/17 01:41 Lab Results: I have reviewed the past 24 hour labs Labs: Laboratory Results - last 24 hr 03/31/17 03/31/17 03/31/17 11:56 12:04 16:26 WBC RBC Hgb Hct MCV MCH MCHC RDW Plt Count MPV Neut % (Auto) Lymph % (Auto) Powell % (Auto) Eos % (Auto) Baso % (Auto) Neut # (Auto) Lymph # (Auto) Powell # (Auto) Eos # (Auto) Baso # (Auto) Immature Gran % Nucleated RBC % Immature Gran # Nucleated RBCs # Immature Plt Fraction INR 1.1 PT Patient/Control Mix 11.3 Sodium 138 Potassium 5.8 H Chloride 105 Carbon Dioxide 28 Anion Gap 10.8 BUN 31 H Creatinine 1.30 H GFR Calculation 56 BUN/Creatinine Ratio 23.00 H Glucose 96 Hemoglobin A1c Calculated Osmolality 281.7 Calcium 9.6 Magnesium Total Bilirubin < 0.39 AST 59 H ALT 150 H Alkaline Phosphatase 165 H Total Creatine Kinase CK-MB (CK-2) Troponin I 0.108 H Total Protein 8.0 Albumin 3.9 Globulin 4.1 H Albumin/Globulin Ratio 0.9 L Triglycerides Cholesterol LDL Cholesterol VLDL Cholesterol HDL Cholesterol Heart Disease Risk Ratio Amylase Lipase TSH 3rd Generation Urine Color Straw Urine Appearance Clear Urine pH 7.0 Ur Specific [place] 1.003 Urine Protein Negative Urine Glucose (UA) Negative Urine Ketones Negative Urine Blood Negative Urine Nitrate Negative Urine Bilirubin Negative Urine Urobilinogen < 2.0 H Urine Leukocytes Moderate H Urine RBC 2 Urine WBC 13 Ur Squamous Epith Cells Occasional Urine Mucus Occasional Ur Culture Indicated? Results to follow Hepatitis A IgM Ab Hep Bs Antigen Hep B Core IgM Ab Hepatitis C Antibody 03/31/17 03/31/17 03/31/17 16:26 16:26 16:26 WBC RBC Hgb Hct MCV MCH MCHC RDW Plt Count MPV Neut % (Auto) Lymph % (Auto) Powell % (Auto) Eos % (Auto) Baso % (Auto) Neut # (Auto) Lymph # (Auto) Powell # (Auto) Eos # (Auto) Baso # (Auto) Immature Gran % Nucleated RBC % Immature Gran # Nucleated RBCs # Immature Plt Fraction INR PT Patient/Control Mix Sodium Potassium Chloride Carbon Dioxide Anion Gap BUN Creatinine GFR Calculation BUN/Creatinine Ratio Glucose Hemoglobin A1c 6.3 Calculated Osmolality Calcium Magnesium Total Bilirubin AST ALT Alkaline Phosphatase Total Creatine Kinase 55 CK-MB (CK-2) < 1.0 Troponin I 0.120 H Total Protein Albumin Globulin Albumin/Globulin Ratio Triglycerides 78 Cholesterol 127 LDL Cholesterol 66.0 VLDL Cholesterol 15.6 HDL Cholesterol 44 Heart Disease Risk Ratio 2.89 Amylase 55 Lipase 260.0 TSH 3rd Generation 0.748 Urine Color Urine Appearance Urine pH Ur Specific [place] Urine Protein Urine Glucose (UA) Urine Ketones Urine Blood Urine Nitrate Urine Bilirubin Urine Urobilinogen Urine Leukocytes Urine RBC Urine WBC Ur Squamous Epith Cells Urine Mucus Ur Culture Indicated? Hepatitis A IgM Ab Negative Hep Bs Antigen Negative Hep B Core IgM Ab Negative Hepatitis C Antibody Negative 04/01/17 04/01/17 04/01/17 01:41 01:41 01:41 WBC 9.0 RBC 3.95 Hgb 10.4 L Hct 32.2 L MCV 81.5 L MCH 26 L MCHC 32.3 RDW 13.8 Plt Count 302 MPV 11.1 Neut % (Auto) 43.6 Lymph % (Auto) 44.8 Powell % (Auto) 8.0 Eos % (Auto) 3.1 Baso % (Auto) 0.4 Neut # (Auto) 3.9 Lymph # (Auto) 4.0 Powell # (Auto) 0.7 Eos # (Auto) 0.3 Baso # (Auto) 0.0 Immature Gran % 0.1 Nucleated RBC % 0.0 Immature Gran # 0.01 Nucleated RBCs # 0.00 Immature Plt Fraction 0.0 INR PT Patient/Control Mix Sodium 140 Potassium 4.4 Chloride 105 Carbon Dioxide 26 Anion Gap 13.4 BUN 33 H Creatinine 1.30 H GFR Calculation 54 BUN/Creatinine Ratio 25.00 H Glucose 87 Hemoglobin A1c Calculated Osmolality 284.4 Calcium 9.0 Magnesium 2.2 Total Bilirubin AST ALT Alkaline Phosphatase Total Creatine Kinase 50 CK-MB (CK-2) < 1.0 Troponin I 0.109 H Total Protein Albumin Globulin Albumin/Globulin Ratio Triglycerides Cholesterol LDL Cholesterol VLDL Cholesterol HDL Cholesterol Heart Disease Risk Ratio Amylase Lipase TSH 3rd Generation Urine Color Urine Appearance Urine pH Ur Specific [place] Urine Protein Urine Glucose (UA) Urine Ketones Urine Blood Urine Nitrate Urine Bilirubin Urine Urobilinogen Urine Leukocytes Urine RBC Urine WBC Ur Squamous Epith Cells Urine Mucus Ur Culture Indicated? Hepatitis A IgM Ab Hep Bs Antigen Hep B Core IgM Ab Hepatitis C Antibody - Diagnostic Findings Procedure: Chest x-ray: report reviewed by me, Ultrasound: pending - EKG EKG results: interpreted by me EKG shows: sinus rhythm Specialty Discharge - Follow Up or Referrals Follow up with: Castro Theodore MD [Physician] - (kEEP PREVIOUSLY SCHEDULED f/u APPOINTMENT WITH dR. Theodore) <Joan Hathaway - Last Filed: 04/01/17 19:45> History of Present Illness - Consult Narrative History of present illness: I have personally interviewed and evaluated the patient, reviewed the chart and discussed medical decision-making with Practitioner Cem. I have read this note and agree with her documentation here in. The patient's Holter monitor has run out of battery life and she is unable to recharge it in the hospital. If there is a concern for arrhythmia a hospital pet house sitter can be placed. Currently the patient is not having any presyncope. She can continue her follow-up with her usual [employer] on the outpatient basis. She has had a history of chronically elevated troponin and these are lower than her usual admission levels. CC: Dede Louie MD Physical Examination Vital Signs Temp Pulse Resp BP Pulse Ox 98.6 F 77 16 152/97 97 10/05/17 11:05 03/31/17 11:05 03/31/17 11:05 03/31/17 11:05 03/31/17 11:05 Result/EKG - Labs CBC & BMP: 04/01/17 01:41 04/01/17 01:41 Labs: Laboratory Results - last 24 hr 04/01/17 04/01/17 04/01/17 01:41 01:41 01:41 WBC 9.0 RBC 3.95 Hgb 10.4 L Hct 32.2 L MCV 81.5 L MCH 26 L MCHC 32.3 RDW 13.8 Plt Count 302 MPV 11.1 Neut % (Auto) 43.6 Lymph % (Auto) 44.8 Powell % (Auto) 8.0 Eos % (Auto) 3.1 Baso % (Auto) 0.4 Neut # (Auto) 3.9 Lymph # (Auto) 4.0 Powell # (Auto) 0.7 Eos # (Auto) 0.3 Baso # (Auto) 0.0 Immature Gran % 0.1 Nucleated RBC % 0.0 Immature Gran # 0.01 Nucleated RBCs # 0.00 Immature Plt Fraction 0.0 Sodium 140 Potassium 4.4 Chloride 105 Carbon Dioxide 26 Anion Gap 13.4 BUN 33 H Creatinine 1.30 H GFR Calculation 54 BUN/Creatinine Ratio 25.00 H Glucose 87 Calculated Osmolality 284.4 Calcium 9.0 Magnesium 2.2 Total Creatine Kinase 50 CK-MB (CK-2) < 1.0 Troponin I 0.109 H
--- NOTE | 2017-04-01 15:13 | Hospitalist Progress Note ---
Assessment and Plan (1) Epigastric pain Status: Acute Assessment and plan: Abd USS showed a mildly increased echogenicity of the liver suspicious for steatosis.Hepatitis panel is negative.Amylase and Lipase levels are normal. plan Continue with pain meds and PPIs, GI consult Follow helicobacter assay Current Visit: Yes (2) Hyperkalemia Status: Acute Assessment and plan: corrected Current Visit: Yes (3) Elevated troponin Status: Acute Assessment and plan: Cardiology feels it is chronic and actually improving Current Visit: No (4) UTI (urinary tract infection) Status: Resolved Assessment and plan: UC showed no growth so far. continue with IV Rocephin, follow blood cultures Current Visit: No Qualifiers: Urinary tract infection type: acute cystitis Hematuria presence: without hematuria Qualified Code(s): N30.00 - Acute cystitis without hematuria (5) FREDI (acute kidney injury) Status: Acute Assessment and plan: continue hydration, avoid nephrotoxics Current Visit: Yes (6) Hypertension Status: Chronic Assessment and plan: stable Current Visit: Yes (7) History of CVA (cerebrovascular accident) Status: Acute Assessment and plan: stable on asa Current Visit: Yes (8) Dyslipidemia Status: Acute Assessment and plan: hold statins due to abnormal liver enzymes Current Visit: Yes Hospitalist: Subjective Interval history: Patient is still having some pain in her epigastrium. Her ultrasound showed a mildly increased echogenicity of the liver suspicious for steatosis.Cardiology also saw and states her elevated troponin is chronic. Exam - Constitutional Vitals: Period Temp Pulse Resp BP Sys/Garza Pulse Ox Last 24 Hr 97.3 F-97.9 F 48-81 18-20 108-169/66-97 96-99 General appearance: no acute distress - Head Head exam: Present: normal inspection - Respiratory Respiratory exam: Present: clear to auscultation bilaterally - Cardiovascular Cardiovascular exam: Present: regular rate and rhythm - GI/Abdominal GI/Abdominal exam: Present: normal bowel sounds, tenderness - Extremities Exam Extremities exam: Present: normal inspection - Neurological Exam Neurological exam: Present: alert, oriented X3 Results - Labs CBC & BMP: 04/01/17 01:41 04/01/17 01:41 Lab Results: I have reviewed the past 24 hour labs Specialty Discharge - Follow Up or Referrals Follow up with: Castro Aguilar MD [Physician] - (kEEP PREVIOUSLY SCHEDULED f/u APPOINTMENT WITH dR. Aguilar)
[2017-04-01] MEDS: ENOXAPARIN 40 MG/0.4 ML SYRINGE SUBCUT SCH (15:36)
[2017-04-01] MEDS: SODIUM BICARB INJ 50 MEQ in STERILE WATER INJ 1,000 ML IV SCH ×2 (15:37→20:15)
[2017-04-02] MEDS: SODIUM BICARB INJ 50 MEQ in STERILE WATER INJ 1,000 ML IV SCH ×3 (07:07→18:48)
[2017-04-02] MEDS: amLODIPine 5 MG TABLET PO SCH (08:07)
[2017-04-02] MEDS: ALPRAZolam 0.25 MG TABLET PO PRN ×2 (08:07→18:45)
[2017-04-02] MEDS: ASPIRIN 325 MG TABLET PO SCH (08:07)
[2017-04-02] MEDS: LABETALOL 200 MG TABLET PO SCH ×2 (08:08→20:45)
[2017-04-02] MEDS: CYPROHEPTADINE 4 MG TABLET PO SCH ×2 (08:09→20:45)
[2017-04-02] MEDS: PANTOPRAZOLE 40 MG TABLET PO SCH (08:18)
--- NOTE | 2017-04-02 12:23 | Hospitalist Progress Note ---
Assessment and Plan (1) Epigastric pain Status: Acute Assessment and plan: Abd USS showed a mildly increased echogenicity of the liver suspicious for steatosis.Hepatitis panel is negative.Amylase and Lipase levels are normal. plan Continue with pain meds and PPIs, GI consult Follow helicobacter assay Current Visit: Yes (2) Hyperkalemia Status: Acute Assessment and plan: corrected Current Visit: Yes (3) Elevated troponin Status: Acute Assessment and plan: Cardiology feels it is chronic and actually improving Current Visit: No (4) UTI (urinary tract infection) Status: Resolved Assessment and plan: UC showed no growth so far. continue with IV Rocephin, follow blood cultures Current Visit: No Qualifiers: Urinary tract infection type: acute cystitis Hematuria presence: without hematuria Qualified Code(s): N30.00 - Acute cystitis without hematuria (5) FREDI (acute kidney injury) Status: Acute Assessment and plan: continue hydration, avoid nephrotoxics Current Visit: Yes (6) Hypertension Status: Chronic Assessment and plan: stable Current Visit: Yes (7) History of CVA (cerebrovascular accident) Status: Acute Assessment and plan: stable on asa Current Visit: Yes (8) Dyslipidemia Status: Acute Assessment and plan: hold statins due to abnormal liver enzymes Current Visit: Yes Hospitalist: Subjective Interval history: Patinet feels better today.No new complaints. Hopfully patient will go home in am. Exam - Constitutional Vitals: Period Temp Pulse Resp BP Sys/Garza Pulse Ox Last 24 Hr 97.5 F-98.0 F 69-78 18-20 101-141/59-73 95-99 General appearance: no acute distress - Head Head exam: Present: normal inspection - Neck Neck exam: Present: normal inspection - Respiratory Respiratory exam: Present: clear to auscultation bilaterally - Cardiovascular Cardiovascular exam: Present: regular rate and rhythm - GI/Abdominal GI/Abdominal exam: Present: normal bowel sounds - Extremities Exam Extremities exam: Present: normal inspection - Neurological Exam Neurological exam: Present: alert, oriented X3 Results - Labs CBC & BMP: 04/01/17 01:41 04/01/17 01:41 Lab Results: I have reviewed the past 24 hour labs Specialty Discharge - Follow Up or Referrals Follow up with: Castro Aguilar MD [Physician] - (kEEP PREVIOUSLY SCHEDULED f/u APPOINTMENT WITH dR. Aguilar)
--- NOTE | 2017-04-02 13:08 | Gastrointestinal Consult Note ---
Assessment and Plan - Time spent with patient Time spent with patient: Greater than 30 minutes (1) Epigastric pain Status: Acute Current Visit: Yes (2) Elevated liver enzymes Status: Acute Current Visit: Yes (3) Abnormal findings on diagnostic imaging of abdomen Status: Acute Current Visit: Yes (4) Other specified counseling Status: Acute Current Visit: Yes History of Present Illness History of present illness: Ms. Ritchie is a 56 year old female Home Medications Medication Instructions Recorded Confirmed Type Atorvastatin [Lipitor] 40 mg PO BEDTIME #30 tablet 12/10/16 03/31/17 Rx Aspirin EC Tab 325 mg PO QAM 12/31/16 03/31/17 History amLODIPine [Norvasc] 10 mg PO QAM 01/20/17 03/31/17 History Cyproheptadine Tab [Periactin Tab] 4 mg PO BID 03/16/17 03/31/17 History Labetalol Tab [Trandate Tab] 400 mg PO BID #60 tablet 03/16/17 03/31/17 Rx Meclizine [Antivert] 25 mg PO BEDTIME PRN 03/20/17 03/31/17 History Triamterene/Hctz 37.5-25 Cap 1 capsule PO QAM 03/20/17 03/31/17 History [Dyazide] ALPRAZolam [Xanax] 0.25 mg PO TID PRN #90 tablet 03/23/17 03/31/17 Rx Allergies Allergy/AdvReac Type Severity Reaction Status Date / Time No Known Allergies Allergy Verified 03/31/17 11:12 Medical,Surgical,& Family Hx - Medical History Cardio: History of: Cerebrovascular Disease, Hypertension Psychological: History of: Anxiety Disorders, Depression Neurology: History of: Cerebrovascular Accident No history of: Brain Aneurysm, Cerebral Hemorrhage Endocrine: History of: Dyslipidemia Respiratory: History of: Asthma Musculoskeletal: No history of: Amputation - Surgical History Neurologic Surgeries: Patient denies: Brain Aneurysm, Cerebral Hemorrhage Abdominal Surgeries: Patient denies: Abdominal Surgery Reproductive Surgeries: Patient denies;: Gynecologic Surgery, Hysterectomy - Family History Family History: Reports;: Family Cancer, Family Heart Disease (father ([place])), Family Hypertension - Social History Smoking Status: Former smoker Frequency of Alcohol Use: None Type of Drug Use: None Exam - Constitutional Vitals: Period Temp Pulse Resp BP Sys/Garza Pulse Ox Last 24 Hr 97.5 F-98.0 F 69-78 18-20 101-141/59-73 95-99 Results - Labs CBC & BMP: 04/01/17 01:41 04/01/17 01:41 Specialty Discharge - Follow Up or Referrals Follow up with: Castro Aguilar MD [Physician] - (kEEP PREVIOUSLY SCHEDULED f/u APPOINTMENT WITH dR. Aguilar) Note Addendum: PLEASE NOTE -- automatic citation of patient information is unavoidable in this electronic note. I have made a reasonable effort to review the information cited , but it is not a part of my evaluation, impression, or recommendation unless specifically discussed in the dictated text that follows. As well, voice recognition software was used in the creation of this clinical note. Reasonable effort was made to identify and correct gross errors. Despite proofreading, errors in hoop riveting machine operator may be present, including nonsense verbiage at times. If you encounter such an error, please contact me at [phone] for discussion and correction. -- Geoffrey Chief complaint: epigastric abdominal pain History of present illness: This is a new patient, a 56-year-old - [place] female seen by consultation for evaluation of epigastric pain. The patient is admitted to hospitalist service under the care of Dr. Louie with a primary diagnosis of same. The patient was admitted to days ago through the emergency department with primary complaint of sudden onset abdominal pain. Evaluation at that time revealed mild anemia, elevated serum creatinine, and chronically elevated serum troponin. She was admitted for further diagnostics and has been managed, primarily, supportively to now. She has been diagnosed with a urinary tract infection and is being treated for that. She has been seen by cardiology which independent beauty consultant does not believe this is a primary cardiovascular problem. She reports a history of occasional heartburn symptoms treated with [id number] antacids. She wonders if this pain is not heartburn pain. Of note, treatment with G.I. cocktail in the emergency department was helpful. As well, with daily proton pump inhibitor during the admission, her presenting symptoms and has improved significantly. She is comfortable at present, tolerating a diet, and would like to go home if possible. Patient denies fever, chills, night sweats, rigors, headache, dizziness, neck pain, visual changes, redness of the eyes, dysphagia, odynophagia, difficulty chewing, chest pain, shortness of breath, weight loss, vomiting, hematemesis, diarrhea, hematochezia, melena, proctalgia, constipation, change in bowel pattern generally, dysuria, skin changes, temperature regulation issues, flushing, easy bleeding/bruising, mental status change, numbness/weakness in the extremities, yellowing of the eyes/skin, cutaneous eruptions, allergies to food or drug, family history of gastrointestinal cancer and colon polyps, and other complaints in general. Review of systems: 12 point review of systems was negative except as documented above. Outpatient medications: Lipitor 40 mg daily, aspirin 3 to 25 mg daily, Norvasc 10 mg daily, Periactin 4 mg twice daily, labetalol 4 mg twice daily, and convert 25 mg daily, Dyazide 37.5/25 mg daily, Xanax .25 mg three times daily as needed, Motrin 200 mg tabs several doses per week Inpatient medications: [place] 5/325 mg every four hours as needed, Xanax 0.25 mg three times daily as needed, Norvasc 5 mg daily, has been treated with 5 mg daily, ceftriaxone 400 mg every 12 hours, clonidine 0.1 mg daily, Periactin 4 mg twice daily, Benadryl 25 mg every six hours as needed, Colace 100 mg twice daily as needed Past Medical History: peripheral vascular disease, hypertension, cerebrovascular accident, hyperlipidemia, asthma Social history: former tobacco. Negative alcohol Family history: no gastrointestinal cancers Physical examination: Vital Signs: Current vital signs reviewed and documented above. General Appearance: lying in bed. Comfortable. No apparent distress. Head: Normocephalic. Neck: Palpation of the neck revealed no abnormalities. Eyes: No scleral icterus. No scleral injection. No conjunctival pallor. Oral Cavity: Odor of breath was normal. No drooling was observed. Lips showed no abnormalities. Floor of the mouth showed no abnormalities. Pharynx: Oropharynx was normal. Lungs: Respiration rhythm and depth was normal. Cardiovascular: Heart rate and rhythm were normal. No murmurs were appreciated. Abdomen: abdomen was protuberant due to obesity but not distended. Abdominal palpation revealed no tenderness and no hepatosplenomegaly. Ascites was not discovered. Abdominal auscultation revealed positive bowel sounds. Musculoskeletal System: Musculoskeletal system was grossly normal. Neurological: level of consciousness was normal. Speech was normal. Skin: General appearance was normal. Color and pigmentation were normal. No skin lesions. Laboratory: what blood count 9.0, hemoglobin 10.4, hematocrit 32.2, platelets 302, INR 1.1, PT 11.3, ALT 150, AST 59, total bilirubin 0.4, alkaline phosphatase 165, creatinine 1.3, albumin 3.9, total protein 8.0, viral hepatitis panel negative, urinalysis consistent with UTI Radiology: abdominal ultrasound, April 01, 2017 -- mildly increased echogenicity of the liver suspicious for steatosis; normal common bile duct diameter; normal gallbladder Impressions: #1. Gastroesophageal reflux disease -- the patient's symptoms are most consistent with this diagnosis. Response to both G.I. cocktail and proton pump inhibitor support the diagnosis. The patient has been using regular NSAID and this is a risk factor for peptic ulcer as well as reactive gastroenteritis generally. I recommend continued volume management, high dose proton pump inhibitor for at least two months, and endoscopic evaluation to ensure no evidence of luminal gut disease. If the patient remains in the hospital, we will plan to accomplish this on Tuesday. Otherwise, this can be accomplished in the outpatient setting. #2. Elevated liver associated enzymes -- the patient has elevated enzymes in a hepatocellular pattern, ALT predominant. Review of her record reveals normal enzymes prior to December of this year with increase to current levels between December and now. Review of her outpatient medication record reveals prescription for Lipitor in November of this year. I cannot tell whether this was the first prescription or whether there was a change in dosing but the timing here is suspicious for statin -related hepatotoxicity. With ALT >2 times the upper limit of normal, we should consider an alternative lipid agent, perhaps Pravachol. I will leave this to your discretion and the patient will need to be followed in primary care with regular liver enzyme monitoring until normal. #3. Abnormal imaging liver -- the patient has possible steatosis based on ultrasound imaging. This is likely nonalcoholic fatty liver disease and it is also possible that hepatitis related to statin medication can give this kind of picture. She will need to follow-up with surveillance radiology after six months or so off of the current statin. If this finding remains, liver biopsy may be indicated. She would also benefit from outpatient gastroenterology follow -up in this regard. #4. Other specified counseling -- The patient was seen for 60 minutes. The patient was counseled for greater than 50% of this time regarding differential diagnosis, likely diagnosis, diagnostic and therapeutic alternatives, risks/ benefits/alternatives of medications and procedures, and plan of care generally. The patient expressed understanding and wishes to proceed. Recommendations: -- continue volume management -- Nexium or Protonix 40 mg twice daily for at least two months followed by same dose daily for symptom control -- upper endoscopy with timing based on clinical progress; outpatient okay if patient remains stable -- avoid NSAIDs if feasible given history of peripheral vascular disease -- discontinue Lipitor and transition to an alternative cholesterol control medication -- outpatient monitoring of liver associated enzymes every three months until back to normal -- surveillance ultrasound in six months; if finding persists, consider liver biopsy -- consider follow-up with outpatient gastroenterology
--- NOTE | 2017-04-02 15:04 | DUMMY REPORT TO COMPLETE ORDER ---
See report scanned to EMR
[2017-04-02] MEDS: ENOXAPARIN 40 MG/0.4 ML SYRINGE SUBCUT SCH (15:41)
[2017-04-03] MEDS: SODIUM BICARB INJ 50 MEQ in STERILE WATER INJ 1,000 ML IV SCH ×2 (05:39→18:42)
[2017-04-03] MEDS: ASPIRIN 325 MG TABLET PO SCH (09:01)
[2017-04-03] MEDS: amLODIPine 5 MG TABLET PO SCH (09:01)
[2017-04-03] MEDS: PANTOPRAZOLE 40 MG TABLET PO SCH ×3 (09:01→21:12)
[2017-04-03] MEDS: CYPROHEPTADINE 4 MG TABLET PO SCH ×2 (09:02→21:12)
[2017-04-03] MEDS: ALPRAZolam 0.25 MG TABLET PO PRN ×2 (09:02→18:42)
[2017-04-03] MEDS: LABETALOL 200 MG TABLET PO SCH ×2 (09:04→21:12)
--- NOTE | 2017-04-03 10:18 | Gastrointestinal Progress Note ---
Assessment and Plan (1) Epigastric pain Status: Acute Current Visit: Yes (2) Elevated liver enzymes Status: Acute Current Visit: Yes (3) Abnormal findings on diagnostic imaging of abdomen Status: Acute Current Visit: Yes (4) Other specified counseling Status: Acute Current Visit: Yes Exam (Progress Note) - Constitutional Vitals: Period Temp Pulse Resp BP Sys/Garza Pulse Ox Last 24 Hr 97.4 F-97.9 F 68-83 16-18 102-127/56-70 93-99 Results - Labs CBC & BMP: 04/01/17 01:41 04/01/17 01:41 Specialty Discharge - Follow Up or Referrals Follow up with: Castro Aguilar MD [Physician] - (kEEP PREVIOUSLY SCHEDULED f/u APPOINTMENT WITH dR. Aguilar) Note Addendum: PLEASE NOTE -- automatic citation of patient information is unavoidable in this electronic note. I have made a reasonable effort to review the information cited , but it is not a part of my evaluation, impression, or recommendation unless specifically discussed in the dictated text that follows. As well, voice recognition software was used in the creation of this clinical note. Reasonable effort was made to identify and correct gross errors. Despite proofreading, errors in biomedical equipment support specialist may be present, including nonsense verbiage at times. If you encounter such an error, please contact me at for discussion and correction. -- Geoffrey Chief complaint: epigastric abdominal pain History of present illness: the patient is a 56-year-old -[place] female seen for follow-up of epigastric pain and elevated liver associated enzymes. The patient is tolerating oral intake and reports no change in bowel movements. Her presenting pain has mostly resolved. She is tolerating proton pump inhibitor without difficulty. Review of systems: 12 point review of systems was negative except as documented above. Inpatient medications: [place] 5/325 mg every four hours as needed, Xanax 0.25 mg three times daily as needed, Norvasc 5 mg daily, aspirin 325 mg daily, ceftriaxone 400 mg every 12 hours, clonidine 0.1 mg daily, Periactin 4 mg twice daily, Benadryl 25 mg every six hours as needed, Colace 100 mg twice daily as needed, Lovenox 40 mg daily, labetalol 400 mg twice daily, magazine 25 mg daily , morphine sulfate 2 mg every four hours as needed, Zofran 4 mg every four hours as needed, Protonix 40 mg daily Physical examination: Vital Signs: Current vital signs reviewed and documented above. General Appearance: lying in bed. Comfortable. No apparent distress. Head: Normocephalic. Neck: Palpation of the neck revealed no abnormalities. Eyes: No scleral icterus. No scleral injection. No conjunctival pallor. Oral Cavity: Odor of breath was normal. No drooling was observed. Lips showed no abnormalities. Floor of the mouth showed no abnormalities. Pharynx: Oropharynx was normal. Lungs: Respiration rhythm and depth was normal. Cardiovascular: Heart rate and rhythm were normal. No murmurs were appreciated. Abdomen: abdomen was protuberant due to obesity but not distended. Abdominal palpation revealed no tenderness and no hepatosplenomegaly. Ascites was not discovered. Abdominal auscultation revealed positive bowel sounds. Musculoskeletal System: Musculoskeletal system was grossly normal. Neurological: level of consciousness was normal. Speech was normal. Skin: General appearance was normal. Color and pigmentation were normal. No skin lesions. Laboratory: no new laboratories today Radiology: abdominal ultrasound, April 01, 2017 -- mildly increased echogenicity of the liver suspicious for steatosis; normal common bile duct diameter; normal gallbladder Impressions: #1. Gastroesophageal reflux disease -- the patient's symptoms are most consistent with this diagnosis. As previously discussed, the patient should continue proton pump inhibitor at high-dose for about two months in order to heal presumptive gastritis. We will plan upper endoscopy Tuesday and will provide further recommendations pending the result of that examination. #2. Elevated liver associated enzymes -- it is noted that Lipitor has been discontinued. As discussed, the patient will need to have regular monitoring of liver associated enzymes until normal. An alternative lipid-lowering medication could be considered once enzymes have established a clear downward trend. #3. Abnormal imaging liver -- the patient has possible steatosis based on ultrasound imaging. This is likely nonalcoholic fatty liver disease and it is also possible that hepatitis related to statin medication can give this kind of picture. She will need to follow-up with surveillance radiology after six months or so off of the current statin. If this finding remains, liver biopsy may be indicated. She would also benefit from outpatient gastroenterology follow -up in this regard. #4. Other specified counseling -- The patient was seen for less than 30 minutes. The patient was counseled for greater than 50% of this time regarding differential diagnosis, likely diagnosis, diagnostic and therapeutic alternatives, risks/benefits/alternatives of medications and procedures, and plan of care generally. The patient expressed understanding and wishes to proceed. Recommendations: -- continue volume management -- Nexium or Protonix 40 mg twice daily for at least two months followed by same dose daily for symptom control -- upper endoscopy Tuesday -- avoid NSAIDs if feasible, understanding history of peripheral vascular disease -- discontinue Lipitor and transition to an alternative cholesterol control medication -- outpatient monitoring of liver associated enzymes every three months until back to normal -- surveillance ultrasound in six months; if finding persists, consider liver biopsy -- consider follow-up with outpatient gastroenterology -- we will continue to follow with you. Dr. Braden will assume G.I. care for this patient tomorrow
[2017-04-03] MEDS ORDERED: BISACODYL 10 MG SUPP RECTAL ONE (10:50)
--- NOTE | 2017-04-03 10:50 | Hospitalist Progress Note ---
Assessment and Plan - Time spent with patient Time spent with patient: Less than 30 minutes (1) Epigastric pain Status: Acute Assessment and plan: 56-year-old -[place]er female with history of CVA, hypertension, and dyslipidemia admitted by the hospitalist service under observation with hyperkalemia, acute renal failure and urinary tract infection. Patient will be started on antibiotics for her urinary tract infection and await cultures. Patient is currently on Dyazide and lisinopril so we will hold these for now due to her acute renal failure and hyperkalemia. She will be given as needed medications for blood pressure. Consult cardiology since she has Holter monitor in place and she is a patient of Dr. Aguilar's. Will let them adjust her medications as needed. Dr. Louie will see and examine patient and further recommendations to follow. 04/03/2017 patient is on Rocephin for her urinary tract infection. Her urine cultures have been negative thus far. Upon discharge she can go home on Levaquin 500 mg p.o. daily for another [address] Hathaway from cardiology has followed patient and signed off. Patient does have chronically elevated troponins and they are actually lower than normal. Her Dyazide and lisinopril have been held due to her acute renal failure and her blood pressures are doing fine without them. Patient does have a Holter monitor in place for syncopal episodes on her previous admission. She has follow-up in a few weeks with Dr. Aguilar and she needs to keep this. There was no evidence of arrhythmias per Dr. Hathaway so far noted on Holter monitor. Dr. Hale from GI was consulted for her epigastric pain and mildly elevated LFTs. He is recommending Protonix 40 mg p.o. twice daily for the next 2 months. He is also recommending Dr. Braden scope the patient in the morning to rule out ulcers or stomach cancer due to patient's high risk. He is also recommending stopping her Lipitor due to her elevated enzymes and starting Pravachol in its place. She will need to follow- up with her primary care physician at [facility] with her LFTs in 6 months. Patient is complaining of some abdominal cramping and constipation. Will order something to assist with this. Dr. Louie will see and examine patient and further recommendations to follow. Current Visit: Yes (2) Hyperkalemia Status: Acute Current Visit: Yes (3) Elevated serum creatinine Status: Acute Current Visit: Yes (4) UTI (urinary tract infection) Status: Resolved Current Visit: No Qualifiers: Urinary tract infection type: acute cystitis Hematuria presence: without hematuria Qualified Code(s): N30.00 - Acute cystitis without hematuria Hospitalist: Subjective Interval history: Patient feeling pretty good today. She is tolerating a diet and not complaining of any nausea or vomiting. Exam - Constitutional Vitals: Period Temp Pulse Resp BP Sys/Garza Pulse Ox Last 24 Hr 97.4 F-97.9 F 68-83 16-18 102-127/56-70 93-99 Exam: Constitutional System: No distress. No tremulousness. Head: Normocephalic, atraumatic. Ears, Nose and Throat System: No evidence of Otitis or Mastoiditis. No epistaxis or discharge Eyes System: Pupils equal, round, and reactive. Extraocular muscles intact. Neck: Supple, without adenopathy, No jugular venous distention. No thyromegaly, neck mass, or prior surgery apparent. Respiratory System: Chest clear to auscultation. Cardiovascular System: Heart with regular rate and rhythm. No murmur. GI System: Abdomen soft, nontender. Normo active bowel sounds present. Musculoskeletal System: limbs with no pedal edema. Full distal pulses. Neurological System: No discernable sensory deficit. Mild stutter Psychiatric System: Conversation is rational Results - Labs CBC & BMP: 04/01/17 01:41 04/01/17 01:41 Specialty Discharge - Follow Up or Referrals Follow up with: Castro Aguilar MD [Physician] - (kEEP PREVIOUSLY SCHEDULED f/u APPOINTMENT WITH dR. Aguilar)
[2017-04-03] MEDS: MAGNESIUM HYDROXIDE SUSP 30 ML UDCUP PO SCH ×2 (11:28→21:11)
[2017-04-03] MEDS: ENOXAPARIN 40 MG/0.4 ML SYRINGE SUBCUT SCH (14:51)
[2017-04-03] MEDS ORDERED: EZETIMIBE 10 MG TABLET PO SCH (21:00)
[2017-04-04] MEDS: SODIUM BICARB INJ 50 MEQ in STERILE WATER INJ 1,000 ML IV SCH ×2 (02:49→14:20)
[2017-04-04 05:51] LABS: Basophils % 0.5 % (0.0-0.8); Eosinophils # 0.3 10*3/uL (0.0-0.87); Eosinophils % 3.6 % (0.00-10.9); Hematocrit 30.8 VOL% (35.7-47.0); Hemoglobin 9.9 GM/DL (12.0-16.0); Immature Granulocytes % 0.1 %; Immature Granulocytes Absolute 0.01 #; Lymphocytes # 3.3 10*3/uL (1.4-4.0); Lymphocytes % 39.2 % (21.3-54.2); Mean Corpuscular HGB Conc 32.1 GM/DL (32-36); Mean Corpuscular Hemoglobin 26 PG (27-34); Mean Corpuscular Volume 81.7 FL (87-102); Mean Platelet Volume 11.9 FL (9.6-12.0); Monocytes # 0.7 10*3/uL (0.11-0.8); Monocytes % 8.8 % (1.7-12.7); Neutrophils % 47.8 % (38.7-73.9); Platelet Count 192 T/CUMM (130-400); Red Blood Count 3.77 MC/CUMM (3.8-5.5); Red Cell Distribution Width 13.9 % (9.3-17.3); White Blood Count 8.4 T/CUMM (4-12)
[2017-04-04 06:28] LABS: Calcium 8.9 MG/DL (8.5-10.1)
[2017-04-04] MEDS: ASPIRIN 325 MG TABLET PO SCH ×2 (08:07→11:42)
[2017-04-04] MEDS: PANTOPRAZOLE 40 MG TABLET PO SCH ×2 (08:08→11:42)
[2017-04-04] MEDS: CYPROHEPTADINE 4 MG TABLET PO SCH ×2 (08:08→11:42)
[2017-04-04] MEDS: LABETALOL 200 MG TABLET PO SCH ×2 (08:08→11:42)
[2017-04-04] MEDS: MAGNESIUM HYDROXIDE SUSP 30 ML UDCUP PO SCH ×2 (08:08→11:42)
[2017-04-04] MEDS: amLODIPine 5 MG TABLET PO SCH ×2 (08:08→11:42)
[2017-04-04] MEDS ORDERED: PROPOFOL 200 MG/20 ML VIAL IV ONE (10:36)
[2017-04-04] MEDS ORDERED: LIDOCAINE 2% 5 ML VIAL ONE (10:36)
--- NOTE | 2017-04-04 10:42 | History and Physical Update ---
History and Physical Update - Physical Exam Mental Status: alert and oriented Heart: regular rate and rhythm Lung: clear to auscultation Abdomen: within normal limits Vitals: within normal limits
--- NOTE | 2017-04-04 10:51 | Operative Note ---
Date of procedure: 04/04/17 Pre-op diagnosis: Epigastric pain and reflux Procedure: EGD with biopsy 56-year-old female with complaints of reflux epigastric pain now for upper endoscopy to further evaluate. Informed consent was obtained for the patient She was sedated with general anesthesia per anesthesia protocol. Patient was placed in left lateral decubitus position the Olympus flexible video upper endoscope was inserted into the oral cavity under direct vision the esophagus was intubated. Findings: Esophagus-normal proximal mid esophageal mucosa distal esophagus with moderate hiatal hernia. No esophagitis, Beaver's or stricture was identified. Stomach-normal insufflation antral gastritis was observed. Biopsies were taken. Remaining stomach is normal to direct and retroflexed views of the body , fundus, cardia and antrum of the stomach. Pylorus-normal Duodenum-normal for the bulb and duodenum to the third portion of the duodenum. The procedure was terminated placed our procedure well she is discharge recovery in good condition Postop diagnosis: 1. Gastroesophageal reflux disease-continue PPI treatment and antireflux precautions 2. Gastritis-avoid nonsteroidals. Follow-up biopsy-positive for H. pylori we will treat. Continue PPI treatment. Anesthesia: other (General) Surgeon / Physician: Eliezer Braden Estimated blood loss: none Specimens: other (Gastritis) Condition: stable Disposition: post procedure unit Results - Labs CBC & BMP: 04/04/17 04:34 04/04/17 04:34 Discharge Plan - Discharge Medications No Action Atorvastatin [Lipitor] 40 mg PO BEDTIME #30 tablet Labetalol Tab [Trandate Tab] 400 mg PO BID #60 tablet Meclizine [Antivert] 25 mg PO BEDTIME PRN PRN Reason: Vertigo ALPRAZolam [Xanax] 0.25 mg PO TID PRN #90 tablet PRN Reason: Anxiety Aspirin EC Tab 325 mg PO QAM amLODIPine [Norvasc] 10 mg PO QAM Cyproheptadine Tab [Periactin Tab] 4 mg PO BID Triamterene/Hctz 37.5-25 Cap [Dyazide] 1 capsule PO QAM - Follow Up or Referral Follow Up: Castro Aguilar MD [Physician] - (kEEP PREVIOUSLY SCHEDULED f/u APPOINTMENT WITH dR. Aguilar) - Forms/Instructions
--- NOTE | 2017-04-04 10:52 | Anesthesia Post-Op ---
Anesthesia Post OP - Post Ansesthetic Evaluation Patient seen in post op: Yes Resp: within normal limits CV: within normal limits Mental: within normal limits Temp: within normal limits [id number]-[id number]-[id number]: within normal limits Nausea and Vomiting: within normal limits Pain: within normal limits
[2017-04-04 11:21] VITALS: BP 142/93
--- NOTE | 2017-04-04 13:26 | Discharge Summary ---
<Chriss Sloan - Last Filed: 04/04/17 13:34> Hospital Course - Hospital Course Hospital Course: 56-year-old -[place]onegas[place] female with history of CVA, hypertension, and dyslipidemia admitted by the hospitalist service under observation with hyperkalemia, acute renal failure and urinary tract infection. Patient will be started on Rocephin for her urinary tract infection and urine cultures have been positive to date. Her Dyazide and lisinopril were held due to her acute renal failure and hyperkalemia. Cardiology was consulted as the patient does have a Holter monitor in place and is a patient of Dr. Aguilar's. She was seen by Dr. Hathaway who has since signed off. During his hospital course, the patient also complained of epigastric pain at which time gastroenterology was consulted. Patient underwent an EGD on 04/04/2017 which revealed the following: #1 GERD #2 gastritis. Biopsies have been sent to pathology. If positive for H. pylori, patient will be treated. Due to elevated liver enzymes, Lipitor was discontinued. Patient has been switched to Zetia 10 mg p.o. nightly. At this time, the patient has reached maximum benefit from hospitalization and is stable for discharge. She will be discharged on home on Levaquin 500mg daily x7days. he should keep her follow-up appointment with Dr. Aguilar as scheduled as well as her primary care physician at the [facility] in 6 months for recheck of LFTs. - Time spent with patient Time with patient DS: Greater than 30 minutes Diagnosis - Discharge Diagnosis (1) FREDI (acute kidney injury) Status: Resolved (2) Dyslipidemia Status: Chronic (3) Elevated liver enzymes Status: Acute (4) Epigastric pain Status: Acute (5) Hyperkalemia Status: Resolved (6) UTI (urinary tract infection) Status: Resolved Specialty Discharge - Follow Up or Referrals Follow up with: Castro Aguilar MD [Physician] - (kEEP PREVIOUSLY SCHEDULED f/u APPOINTMENT WITH dR. Aguilar) [facility] [Provider Group] (6 months recheck LFTs) Discharge Plan - Discharge Data Disposition: Disch To Home/Self Care Condition at Discharge: Stable Discharge Diet: advance to your usual diet Activity: resume usual activities as tolerated Hygiene: no restrictions Weight Bearing at Discharge: full weight bearing Driving: no restrictions Contact your physician if you experience:: fever over 101, Difficulty voiding, Nausea/Vomiting - Discharge Medications New Levofloxacin Tab [Levaquin Tab] 500 mg PO DAILY #7 tablet Ezetimibe [Zetia] 10 mg PO BEDTIME #30 tablet Pantoprazole Tab [Protonix Tab] 40 mg PO DAILY #30 tablet Continue Labetalol Tab [Trandate Tab] 400 mg PO BID #60 tablet Meclizine [Antivert] 25 mg PO BEDTIME PRN PRN Reason: Vertigo ALPRAZolam [Xanax] 0.25 mg PO TID PRN #90 tablet PRN Reason: Anxiety Aspirin EC Tab 325 mg PO QAM amLODIPine [Norvasc] 10 mg PO QAM Cyproheptadine Tab [Periactin Tab] 4 mg PO BID Triamterene/Hctz 37.5-25 Cap [Dyazide] 1 capsule PO QAM Discontinued Atorvastatin [Lipitor] 40 mg PO BEDTIME #30 tablet - Follow Up or Referral Follow Up: [facility] [Provider Group] (6 months recheck LFTs) Castro Aguilar MD [Physician] - (kEEP PREVIOUSLY SCHEDULED f/u APPOINTMENT WITH dR. Aguilar) - Forms/Instructions Instructions: Levofloxacin (By mouth), Gastritis (DC), Gastroesophageal Reflux Disease (DC), Abdominal Pain, Director Of [employer] (GEN) Exam - Constitutional Vitals: Period Temp Pulse Resp BP Sys/Garza Pulse Ox Last 24 Hr 97.5 F-98.5 F 77-86 15-32 117-152/64-109 92-100 Exam: General: No acute distress Heart: RRR; no gallops, murmurs, rubs, clicks Lungs: CTA bilaterally; no wheezes, rales, rhonchi Abdomen: NBS, soft, nontender, no masses Extremities: no cyanosis, edema, clubbing Neuro: AAOx3 Discharge Results Procedures and tests throughout hospitalization: Pending Orders 03/31/17 16:00 Helicobacter pylori Ag Feces Routine 03/31/17 16:26 Blood Culture Stat Labs on day of discharge: Labs from last 24 hours 04/04/17 04/04/17 04:34 04:34 WBC 8.4 RBC 3.77 L Hgb 9.9 L Hct 30.8 L MCV 81.7 L MCH 26 L MCHC 32.1 RDW 13.9 Plt Count 192 D MPV 11.9 Neut % (Auto) 47.8 Lymph % (Auto) 39.2 [place] % (Auto) 8.8 Eos % (Auto) 3.6 Baso % (Auto) 0.5 Neut # (Auto) 4.0 Lymph # (Auto) 3.3 [place] # (Auto) 0.7 Eos # (Auto) 0.3 Baso # (Auto) 0.0 Immature Gran % 0.1 Nucleated RBC % 0.0 Immature Gran # 0.01 Nucleated RBCs # 0.00 Immature Plt Fraction 10.4 H Sodium 143 Potassium 4.0 Chloride 106 Carbon Dioxide 31 Anion Gap 10.0 BUN 18 Creatinine 0.70 GFR Calculation 114 BUN/Creatinine Ratio 25.00 H Glucose 92 Calculated Osmolality 286.0 Calcium 8.9 Preliminary micro results at discharge 03/31/17 16:26 Blood Culture - Preliminary Blood No growth at 3 days 03/31/17 16:26 Blood Culture - Preliminary Blood No growth at 3 days - Imaging and Cardiology Procedure: Ultrasound: image reviewed by me, report reviewed by me (Abdomen: Mildly increased echogenicity of the liver suspicious for steatosis) DS: Provider Date of admission: 03/31/17 13:40 Primary care physician: . No PCP Attending physician on admission: Dede Louie MD Consults: 03/31/17 13:44 Consult to Physician [CONS] Routine Comment: pt of hu, adm w hyperK and uti w elev cr Consulting Provider: Cardiology - [facility] When should Consulting Provider be notified: Now Person Notified: Gianni Date Notified: 03/31/17 Time Notified: 16:29 03/31/17 16:05 Consult to Pastoral Services [CONS] Routine Comment: Pastoral Screen: Request Transportation Design Engineer Visit 04/01/17 14:46 Consult to Physician [CONS] Routine Comment: Consulting Provider: Jose Hale V Consult to Specialist Group: Gastroenterology Date Notified: 04/01/17 Time Notified: 15:12 Consult Notification Comment: the lady at switchboard page to call [facility] Discharging clinician: Chriss WILLIS Expected date of discharge: 04/04/17 <Dede Louie - Last Filed: 04/04/17 15:18> Hospital Course - Time spent with patient Time with patient DS: Greater than 30 minutes (Time spent greater than 30mins) Diagnosis - Discharge Diagnosis (1) Epigastric pain Status: Acute (2) Hyperkalemia Status: Acute (3) Elevated troponin Status: Acute (4) UTI (urinary tract infection) Status: Resolved (5) FREDI (acute kidney injury) Status: Resolved (6) Hypertension Status: Chronic (7) History of CVA (cerebrovascular accident) Status: Acute (8) Dyslipidemia Status: Chronic (9) Helicobacter pylori (H. pylori) Status: Acute Exam - Constitutional General appearance: no acute distress - Head Head exam: Present: normal inspection - Respiratory Respiratory exam: Present: clear to auscultation bilaterally - Cardiovascular Cardiovascular exam: Present: regular rate and rhythm - GI/Abdominal GI/Abdominal exam: Present: normal bowel sounds - Extremities Exam Extremities exam: Present: normal inspection
[2017-04-04] MEDS: ENOXAPARIN 40 MG/0.4 ML SYRINGE SUBCUT SCH (14:22)
--- NOTE | 2017-04-05 11:22 | Pathology Report from [facility] ---
[facility] ACCESSION # : [id number] PATIENT NAME : Erika Sprague ORDERING DR : LUIS ALFREDO KEYS MD CLINICAL HX: Epigastric pain POST-OP DX: Same SPECIMEN INFO: Gastric GROSS DESCRIPTION: Received in formalin labeled ERIKA SPRAGUE consists of two groves tissue fragments measuring 0.5 x 0.2 cm collectively submitted in one cassette. DIAGNOSIS FOR ERIKA SPRAGUE: GASTRIC BIOPSIES: Chronic antral gastritis. H. pylori not seen on H&E or special stain with appropriate control. COLLECTED DATE: 04/04/2017 [facility] REPORT DATE: 04/05/2017 ELECTRONICALLY SIGNED BY: Doug Okeefe M.D. 04/05/2017 - 9:57:56 [facility]TDD
== END 2017-04-04 15:51 | disposition home or self-care (01) | DRG 683 ==
LOC: N.EDINP 11:02 → N.ED 11:02 → OBSVTOIN 13:40 → N.EDINP 14:59 → N.5E 15:09
PROVIDERS: ADMIT Internal Medicine; ATTEND Internal Medicine